=== PATIENT | male | born 1935 | race Caucasian/White ===

== ENCOUNTER 2023-10-13 22:45 | Inpatient (IN) | payer OTHER, SELFPAY ==
[2023-10-13 15:36] VITALS: BP 111/69
[2023-10-13 16:14] LABS: % Basophils 0.2 % (0-2); % Immature Granulocytes 0.6 % (0-0.5); % Lymphocytes 2.2 % (20.5-51.1); % Monocytes 5.6 % (1.7-9.3); % Neutrophils 91.4 % (42.2-75.2); Absolute Immature Granulocytes 0.1 10^3/uL (0-0.05); Absolute Lymphocytes 0.4 10^3/uL (1.2-3.4); Absolute Monocytes 1.1 10^3/uL (0.1-0.6); Absolute Neutrophils 17.7 10^3/uL (1.4-6.5); Hemoglobin 13.5 g/dL (13.0-18.0); Mean Corp Hgb Conc. 33.8 g/dL (33.0-37.0); Mean Corpuscular Hgb 32.7 pg (27.0-31.0); Mean Corpuscular Volume 96.9 fL (80.0-94.0); Mean Platelet Volume 10.3 fL (7.4-10.4); Nucleated Red Blood Cells % 0 % (-); Platelet Count 217 10^3/uL (130-400); Red Blood Cell Count 4.13 10^6/uL (4.70-6.10); Red Cell Dist. Width 14.3 % (11.5-14.5); White Blood Cell Count 19.4 10^3/uL (4.8-10.8)
[2023-10-13 16:25] LABS: ALT (SGPT) 25 U/L (0-50); AST (SGOT) 40 U/L (17-59); Albumin 4.4 g/dl (3.5-5.0); Alkaline Phosphatase 107 U/L (38-126); Blood Urea Nitrogen 25 mg/dl (9-20); Calcium 9.9 mg/dl (8.4-10.2); Carbon Dioxide 23 mmol/L (22-30); Chloride 104 mmol/L (98-107); Glucose 165 mg/dl (70-99); Lipase 40 U/L (23-300); Sodium 136 mmol/L (135-145); Total Bilirubin 1.1 mg/dl (0.2-1.3); Total Protein 6.9 g/dl (6.3-8.2); eGFR 44.78
[2023-10-13 16:26] LABS: Lactic Acid 3.9 mmol/L (0.7-2.0)
[2023-10-13 16:37] LABS: Troponin I < 0.012 ng/ml
--- NOTE | 2023-10-13 18:39 | ED.GENMED ---
History of Present Illness
General
Chief Complaint: Abdominal Pain
Time Seen by Provider: 10/13/23 18:21
Travel History
Have you had any contact with someone who has COVID-19?: No
Do you have any symptoms of coronavirus? Fever > 100 degrees, chills, cough, shortness of breath, sore throat, loss of taste or smell, muscle aches, or headache?: No
History of Present Illness
History of Present Illness:
87-year-old male with history of impaired cognition and hypertension presents to the emergency department for evaluation of right upper abdominal pain that began this morning. He has had several bouts of nausea and vomiting this afternoon. Patient
suspects that this is food poisoning related to his dinner last night. Denies any fevers chills or sweats. No history of abdominal surgeries.
Review of Systems
Review of Systems
Allergies reviewed?: Yes
All Other Systems: ROS reviewed and negative except as documented in HPI and ROS
Phy Exam
Physical Exam
Physical Exam:
GEN: Well appearing, NAD, WDWN
Eyes: PERRLA, EOMs intact, no scleral icterus
HENT: NCAT, oral mucosa moist
Lungs: CTAB, no wheezes, rales, rhonchi, normal chest wall excursion
Cardiac: RRR, no M/R/G, no peripheral edema. Radial pulses 2+ bilat
Abdomen: Soft, focal right upper quadrant tenderness, negative Rendon sign, no rigidity or peritoneal signs
Neuro: Alert and oriented to baseline, moves all extremities freely
MSK: No gross deformity or ecchymosis.
Skin: No rashes, petechiae. Normal color, no pallor or jaundice.
Psych: Calm, cooperative, proper hygiene
Course
Orders/Labs/Results
Orders:
Orders
10/13/23 15:42
Electrocardiogram (*1) Urgent
Reason for Study: Vertigo / Dizzy
EKG- Treatment ONCE
CR Chest - 2 Views Urgent
Comment:
Reason For Exam: weakness
10/13/23 15:56
Complete Blood Count/With Diff Urgent
Comprehensive Metabolic Panel Urgent
Lactic Acid Urgent
Lipase Urgent
Troponin I Urgent
10/13/23 18:38
0.9% Sodium Chloride 1000 ml [Nss] 2,000 ml IV BOLUS
US Abdomen Complete/Upper Urgent
Comment:
Reason For Exam: RUQ pain/leukocytosis
10/13/23 19:56
Piperacillin/Tazo 3.375 Gram [Zosyn] 3.375 gram in 50 ml IV NOW
10/13/23 20:08
CT Abd/Pel (IV only)-DH only Urgent
Comment:
Reason For Exam: sepsis, abd pain
10/13/23 21:56
Admit/Transfer Patient As Directed
Co-Sign Provider:
Level of Care: Inpatient admission
Assign to:: Medical/Surgical
Physician / Group: jose guadalupe
Diagnosis: cholecystitis
Reason for Hospitalization: cholecystitis
Expected length of stay greater than two midnights?: Yes
ELOS- Estimated Length of Stay in days: 2
I certify the patient meets the requirements for IP care: Yes
10/13/23 21:59
Code Status As Directed
Resuscitation Status: Full Code
10/13/23 22:02
SURGICAL CONSULT Routine
Consulting Provider: Victor M De Jesus
Was physician already notified: Yes
Abnormal Lab Results
10/13/23
15:56
WBC 19.4 H 10^3/uL
(4.8-10.8)
RBC 4.13 L 10^6/uL
(4.70-6.10)
MCV 96.9 H fL
(80.0-94.0)
MCH 32.7 H pg
(27.0-31.0)
Abs Immat Gran (auto) 0.1 H 10^3/uL
(0-0.05)
Absolute Neuts (auto) 17.7 H 10^3/uL
(1.4-6.5)
Absolute Lymphs (auto) 0.4 L 10^3/uL
(1.2-3.4)
Absolute Monos (auto) 1.1 H 10^3/uL
(0.1-0.6)
Immature Gran % 0.6 H %
(0-0.5)
Neutrophils % 91.4 H %
(42.2-75.2)
Lymphocytes % 2.2 L %
(20.5-51.1)
BUN 25 H mg/dl
(9-20)
Creatinine 1.5 H mg/dL
(0.7-1.3)
Glucose 165 H mg/dl
(70-99)
Lactic Acid 3.9 H mmol/L
(0.7-2.0)
10/13/23 15:56
10/13/23 15:56
Vital Signs
Initial and Last Documented VS:
Initial Vital Signs
Temp Pulse Resp BP Pulse Ox
98.6 F 109 18 111/69 94
10/13/23 15:36 10/13/23 15:36 10/13/23 15:36 10/13/23 15:36 10/13/23 15:36
Last Documented Vital Signs
Temp Pulse Resp BP Pulse Ox
98.6 F 82 18 134/59 97
10/13/23 15:36 10/13/23 20:25 10/13/23 20:25 10/13/23 20:25 10/13/23 20:25
MDM/Problems Addressed
MDM/Problems Addressed:
Patient found to have acute cholecystitis. Case was discussed with general surgery, the patient will be admitted on IV antibiotics to the hospitalist service for further management. He is septic with lactic acidosis and significant leukocytosis,
received 2 L normal saline and prompt IV antibiotics.
*Critical Care Note
Total Time (30-74mins, 75-104mins- exclusive of procedures): 30 minutes
comment:
Critical care time: 30 minutes
Critical care time was exclusive of: Separately billable procedures, treating other patients, and teaching time
Critical care was necessary to treat or prevent imminent or life-threatening deterioration of the following conditions: Severe sepsis
Critical care time spent personally by me on the following activities:
[x] Review of old charts
[x] Obtaining history from patient or surrogate
[x] Ordering and review of the laboratory studies
[x] Ordering and review of radiographic studies
[x] Ordering and performing treatments and interventions
[x] Patient patient's response to treatment
[x] Development of treatment plan with patient or surrogate
ED Attending Note
-
Portions of this chart may have been created with voice recognition software.� Occasional wrong word or��sound alike� substitutions may have occurred due to the inherent limitations of voice recognition software.
Discharge Plan
Departure
Patient Disposition: Admit
Date of Disposition: 10/13/23
Time of Disposition: 21:32
Presentation/result/management discussed w/ accepting MD/DO: Hospitalist
Discharge Problem:
Acute cholecystitis, Severe sepsis
Interventions
Interventions:
*Risk Screen - Suicide Last Done: 10/13/23 15:36
*General Assessment Last Done: 10/13/23 15:36
*Neglect/Abuse Screening Last Done: 10/13/23 15:36
ED- Fall Risk Assessment Last Done: 10/13/23 19:15
WM-Zmtwbt-Elalzwhael Assessment Last Done: 10/13/23 19:14
[2023-10-13] MEDS: NSS 2000 IV (19:13)
[2023-10-13] MEDS: ZOSYN 50 IV (20:17)
[2023-10-13 20:25] VITALS: BP 134/59
--- NOTE | 2023-10-13 22:03 | HPS.HSE ---
Family Physician
-
Family Physician: Chito Lee
Chief Complaint
-
abdominal pain
History of Present Illness
87-year-old male past medical history of hypertension, rosacea, gout, arthritis, hypothyroidism, cognitive impairment, presenting with right upper abdominal pain that started this morning. He had several bouts of nausea and vomiting today. He
denies fevers or chills. Denies any diarrhea.
Patient was trying to get out of bed upon my arrival and was falling to the ground and I was able to help him to the ground without head injury. He denies any headache or neck pain.
Denies smoking or alcohol use.
Medical History
Past Medical History
Past Medical History: Reports Other ( hypertension, rosacea, gout, arthritis, hypothyroidism, cognitive impairment,)
Past Surgical History: Reports None
Social History
Tobacco: Non-smoker
Alcohol: None
Drug: None
Family History
Family History: Not pertinent
Allergies / Home Medications
Allergies reflects when Allergies were last updated in [facility].
Home Medications with original date entered in [facility]
Allergy/Medication List:
Allergies
Allergy/AdvReac Type Severity Reaction Status Date / Time
No Known Allergies Allergy Unverified 10/13/23 15:36
Home Medications
acetaminophen 325 mg tablet (Tylenol) 650 mg PO Q4HPRN PRN mild pain 10/13/23
allopurinol 300 mg tablet 300 mg PO DAILY 10/13/23
cholecalciferol (vitamin D3) 25 mcg (1,000 unit) tablet (Vitamin D3) 25 mcg PO DAILY 10/13/23
hydroxychloroquine 200 mg tablet (Plaquenil) 200 mg PO BID 10/13/23
levothyroxine 50 mcg tablet (Synthroid) 50 mcg PO DAILY 10/13/23
metoprolol succinate 25 mg tablet,extended release 24 hr (Toprol XL) 12.5 mg PO DAILY 10/13/23
midodrine 5 mg tablet 5 mg PO TIDPRN PRN low bp 10/13/23
therapeutic multivitamin 1 tab PO DAILY 10/13/23
Review of Systems
-
History Source: Patient
A 12 point ROS was completed and negative except as noted: Yes
Constitutional: Reports No Symptoms
EENT: Reports No Symptoms
Respiratory: Reports No Symptoms
Cardiac: Reports No Symptoms
Abdomen/GI: Reports See HPI
: Reports No Symptoms
Musculoskeletal: Reports No Symptoms
Skin: Reports No Symptoms
Neurological: Reports No Symptoms
Endocrine: Reports No Symptoms
Hematologic/Lymphatic: Reports No Symptoms
Psych: Reports No Symptoms
Physical Exam
Vital Signs
Vital Signs
Temp Pulse Resp BP Pulse Ox
98.6 F 82 18 134/59 97
10/13/23 15:36 10/13/23 20:25 10/13/23 20:25 10/13/23 20:25 10/13/23 20:25
Physical Exam
General: Well Developed, Well Nourished and No Apparent Distress
HEENT: NormoCephalic, Moist mucous membranes and Atraumatic
Respiratory: Clear
Cardiac: S1/S2 and Regular Rhythm; No Murmur or Rub
GI: Soft, Non Distended, Normal Bowel Sounds and Tender (RUQ); No Organomegaly
Rectal: Deferred by Provider
Musculoskeletal: No Clubbing, No Cyanosis and No Edema
Skin: No Rash
Neuro: Nonfocal/grossly intact
Laboratory Results
-
10/13/23 15:56
10/13/23 15:56
Laboratory Results
Lactic Acid 3.9 mmol/L (0.7-2.0) H 10/13/23 15:56
Total Bilirubin 1.1 mg/dl (0.2-1.3) 10/13/23 15:56
AST 40 U/L (17-59) 10/13/23 15:56
ALT 25 U/L (0-50) 10/13/23 15:56
Alkaline Phosphatase 107 U/L (38-126) 10/13/23 15:56
Troponin I < 0.012 ng/ml 10/13/23 15:56
Lipase 40 U/L (23-300) 10/13/23 15:56
Data Reviewed
-
Lab Data: Labs Reviewed by me
Old Records: Reviewed
Impression/Plan
-
IMPRESSION:
PLAN:
# Acute cholecystitis
-N.p.o.
-IV fluids
-Zosyn
-Dilaudid for pain
-General surgery consulted
# Acute kidney injury
-IV fluids
Cognitive impairment
Essential hypertension
-Continue metoprolol
Rheumatoid arthritis
-Continue hydroxychloroquine
Gout
-Continue allopurinol
Hypothyroidism
-Continue levothyroxine
Full code
DVT prophylaxis�SCDs
N.p.o.
[2023-10-14] VITALS (16 sets, daily range): BP systolic 123–164; BP diastolic 55–91; BMI 23.1
[2023-10-14] MEDS: NSS 1000 IV ×3 (00:57→23:01)
[2023-10-14] MEDS: ZOSYN 50 IV ×4 (02:30→20:04)
[2023-10-14 06:01] LABS: % Basophils 0.4 % (0-2); % Eosinophils 0.1 % (0-6); % Immature Granulocytes 0.5 % (0-0.5); % Lymphocytes 5.7 % (20.5-51.1); % Monocytes 9.1 % (1.7-9.3); % Neutrophils 84.2 % (42.2-75.2); Absolute Basophils 0.1 10^3/uL (0-0.2); Absolute Immature Granulocytes 0.1 10^3/uL (0-0.05); Absolute Lymphocytes 0.9 10^3/uL (1.2-3.4); Absolute Monocytes 1.4 10^3/uL (0.1-0.6); Absolute Neutrophils 12.9 10^3/uL (1.4-6.5); Hematocrit 39.7 % (39.0-52.0); Hemoglobin 13.7 g/dL (13.0-18.0); Mean Corp Hgb Conc. 34.5 g/dL (33.0-37.0); Mean Corpuscular Hgb 32.8 pg (27.0-31.0); Mean Platelet Volume 10.4 fL (7.4-10.4); Nucleated Red Blood Cells % 0 % (-); Platelet Count 165 10^3/uL (130-400); Red Blood Cell Count 4.18 10^6/uL (4.70-6.10); Red Cell Dist. Width 14.5 % (11.5-14.5); White Blood Cell Count 15.3 10^3/uL (4.8-10.8)
[2023-10-14 06:27] LABS: ALT (SGPT) 22 U/L (0-50); AST (SGOT) 43 U/L (17-59); Albumin 3.4 g/dl (3.5-5.0); Alkaline Phosphatase 88 U/L (38-126); Blood Urea Nitrogen 29 mg/dl (9-20); Calcium 9.6 mg/dl (8.4-10.2); Carbon Dioxide 24 mmol/L (22-30); Chloride 104 mmol/L (98-107); Estimated Creatinine Clearance 38 ml/min; Glucose 120 mg/dl (70-99); Potassium 4.5 mmol/L (3.5-5.1); Sodium 138 mmol/L (135-145); Total Bilirubin 1.8 mg/dl (0.2-1.3); eGFR 44.78
--- NOTE | 2023-10-14 07:58 | CON.GS ---
Consultation
-
Date/Time Consultation Requested: 10/14/23
Date/Time Consultation Performed: 10/14/23
Requesting Provider: hospitalist
Performing Provider: brigitte
Reason for Consultation: cholecystitis
Medical History
-
Chief Complaint: Fainting
History of Present Illness:
Patient is an 87-year-old male who lives independently with his who came into the emergency department yesterday as he was unable to ambulate with progressive weakness.
He has had approximately a 2-day history of right-sided abdominal pain at the ribs with recurrent nausea vomiting. No episodes like this in the past. Emergency department evaluation notable for gallbladder wall thickening, sludge and
pericholecystic fluid/edema consistent with cholecystitis on CT as well as ultrasound imaging.
Past Medical History
Past Medical History: Other (Hypertension, rosacea, gout, arthritis, hypothyroidism, cognitive impairment)
Past Surgical History: Orthopedic (Knee scope)
Social History
Tobacco: Non-Smoker
Alcohol: None
Drug: None
Personal:
Living: With Family
Employment: Retired
Family History
Family History: Unable to Obtain
Allergies / Home Medications
Allergy/AdvReac Type Severity Reaction Status Date / Time
No Known Allergies Allergy Unverified 10/13/23 15:36
Medication Instructions Recorded Confirmed Type
acetaminophen 325 mg tablet 650 mg PO Q4HPRN PRN mild pain 10/13/23 10/13/23 History
(Tylenol)
allopurinol 300 mg tablet 300 mg PO DAILY 10/13/23 10/13/23 History
cholecalciferol (vitamin D3) 25 25 mcg PO DAILY 10/13/23 10/13/23 History
mcg (1,000 unit) tablet (Vitamin
D3)
hydroxychloroquine 200 mg tablet 200 mg PO BID 10/13/23 10/13/23 History
(Plaquenil)
levothyroxine 50 mcg tablet 50 mcg PO DAILY 10/13/23 10/13/23 History
(Synthroid)
metoprolol succinate 25 mg 12.5 mg PO DAILY 10/13/23 10/13/23 History
tablet,extended release 24 hr
(Toprol XL)
midodrine 5 mg tablet 5 mg PO TIDPRN PRN low bp 10/13/23 10/13/23 History
therapeutic multivitamin 1 tab PO DAILY 10/13/23 10/13/23 History
Review of Systems
-
Unable to obtain full review of systems at this time due to: Dementia
History Source: Patient
A 10 point review of systems was completed, and was negative except as per HPI.
Physical Exam
Vital Signs
Temp Pulse Resp BP Pulse Ox
98.8 F 87 18 154/67 97
10/14/23 00:02 10/14/23 00:02 10/14/23 00:02 10/14/23 00:02 10/14/23 00:02
10/13/23 10/14/23 10/15/23
06:59 06:59 06:59
Actual Weight 77.111 kg
Body Mass Index (BMI) 23.1
Lab Results
10/14/23 05:40
10/14/23 05:40
WBC 15.3 10^3/uL (4.8-10.8) H 10/14/23 05:40
Hgb 13.7 g/dL (13.0-18.0) 10/14/23 05:40
Hct 39.7 % (39.0-52.0) 10/14/23 05:40
Plt Count 165 10^3/uL (130-400) D 10/14/23 05:40
Abs Immat Gran (auto) 0.1 10^3/uL (0-0.05) H 10/14/23 05:40
Neutrophils % 84.2 % (42.2-75.2) H 10/14/23 05:40
Data Reviewed
-
CT Scan: Image Personally Visualized and interpreted, Report Reviewed by me, Discussed with Patient and Discussed with Family
Ultrasound: Image Personally Visualized and interpreted, Report Reviewed by me, Discussed with Patient and Discussed with Family
Labs: Labs Reviewed by me, Discussed with Patient and Discussed with Family
Assessment / Plan
-
Assessment: 87-year-old male with probable acute calculus cholecystitis secondary leukocytosis, intractable right upper quadrant abdominal pain and slightly elevated bilirubin. Remaining LFTs normal.
Ultrasound confirmed wall thickening and pericholecystic edema. Gallbladder sludge. CT imaging also with gallbladder distention and pericholecystic inflammatory changes. No additional acute intra-abdominal findings on CT imaging.
Reviewed with patient and also spoke with his daughter at length via phone call. We discussed treatment options which could include attempted nonoperative management with antibiotic therapy and obtaining a HIDA scan to evaluate for cystic duct
patency. Alternatively given persistent tenderness in the right upper quadrant, leukocytosis and ongoing signs of cholecystitis I advised that I would lean towards cholecystectomy. Even in the setting of the patient's advanced age he does live
independently with his , has no significant prior diagnosed cardiac history other than hypertension and his daughter is unaware of any history of congestive heart failure, prior AK, valvular heart disease.
Laparoscopic cholecystectomy with possible cholangiogram was reviewed in detail with the patient's daughter and reviewed with the patient.
Plan: Continue current medical treatment. Patient and family are leaning towards cholecystectomy but would like to further discuss before definitive yes.
[2023-10-14] MEDS: THERAGRAN 1 TABLET PO (08:00)
[2023-10-14] MEDS: VITAMIN D3 (cholecalciferol) 25 MCG PO (08:00)
[2023-10-14] MEDS: ZYLOPRIM 300 MG PO (08:00)
[2023-10-14] MEDS: PLAQUENIL 200 MG PO ×2 (08:00→19:41)
[2023-10-14] MEDS: TOPROL XL 12.5 MG PO (08:04)
[2023-10-14] MEDS: SYNTHROID 50 MCG PO (08:04)
--- NOTE | 2023-10-14 10:02 | W.PN.SURGUPD ---
Surgical Update
Surgical Update
Patient's daughter and are now present. Discussed with them and patient in preoperative holding area options for treatment of cholecystitis including nonoperative, percutaneous cholecystostomy tube drainage and cholecystectomy. We reviewed
risks, benefits of various approaches and everyone is in agreement to proceed with cholecystectomy.
Laparoscopic cholecystectomy was reviewed in detail including operative technique utilizing diagrams and alternative management options. The potential benefits and risks of the procedure were reviewed in detail, including but not limited to
infectious or wound healing complications, bleeding, bile leak, injury to biliary tree, iatrogenic injury to surrounding viscera. Reviewed the typical postoperative recovery.
Any of the patient's concerns or questions were fully addressed and informed consent was obtained.
Proceeding with surgery at this time
--- NOTE | 2023-10-14 10:04 | W.SUR.PREOP ---
Pre-Operative Surgical Note
-
I have examined this patient prior to the performance of the scheduled procedure.
The patient's condition is unchanged from the time of the current History and
Physical and the patient is able to undergo the scheduled procedure.
--- NOTE | 2023-10-14 11:09 | W.PN.HOSP.TC ---
Today's Communication/Plan
-
lap stacy today
Assessment / Plan
Assessment / Plan
Assessment:
Acute cholecystitis
- NPO for lap stacy
- continue IVF
- Zosyn
- GS following
- pain control, anti-emetics
Acute kidney injury vs CKD
- continue IVF
Cognitive impairment
Essential hypertension
- continue metoprolol
Rheumatoid arthritis
- continue hydroxychloroquine
Gout
- continue allopurinol
Hypothyroidism
- continue levothyroxine
DVT ppx: SCDs
Code: Full
Anticipated Discharge: > 48 hours
Subjective/Interval History
-
Date of Service: October 14, 2023
RUQ pain and nausea, found to have acute stacy
for lap stacy today
Objective Data
-
Labs:
Laboratory Results
10/14/23
05:40
WBC 15.3 H
Hgb 13.7
Hct 39.7
Plt Count 165 D
Sodium 138
Potassium 4.5
Chloride 104
Carbon Dioxide 24
BUN 29 H
Creatinine 1.5 H
Glucose 120 H
Calcium 9.6
Total Bilirubin 1.8 H
AST 43
ALT 22
Alkaline Phosphatase 88
Vital Signs:
Vital Signs
Temp Pulse Resp BP Pulse Ox
98.2 F 83 17 164/71 96
10/14/23 08:24 10/14/23 08:24 10/14/23 08:24 10/14/23 08:24 10/14/23 08:24
Physical Exam
-
General: Well Developed and Well Nourished
HEENT: Normocephalic and Atraumatic
Respiratory: Clear to Auscultation
Cardiac: Regular Rhythm and S1/S2
GI: Tender (RUQ)
Hematologic / Lymphatic: Lymphadenopathy
Psych: Calm
Data Reviewed
-
Total Time Spent with Patient (in minutes): 45
Labs: Labs Reviewed by me
--- NOTE | 2023-10-14 11:13 | W.IMMPOSTOP ---
Addendum entered and electronically signed by Victor M De Jesus MD 10/14/23 11:23:
#[id number]
Original Note:
Surgical Immed Post Op Note
-
Primary Surgeon: Liza
Assisting Surgeon: None
Pre-op Diagnosis: Acute calculus cholecystitis
Post-op Diagnosis: Gangrenous acute calculus cholecystitis
Procedure Performed: Laparoscopic cholecystectomy
Anesthesia Type: GETA +0.25% Marcaine
Specimen / Cultures: Gallbladder
Estimated Blood Loss: 8 mL
Complications: None immediate
Operative Findings: Tensely distended gallbladder with patchy gangrenous wall changes. No free perforation. Cystic duct identified and controlled with clips as well as cystic artery. Gallbladder removed off liver bed intact.
Plan: Routine postop care continuing IV antibiotics. Clear liquids and advance diet as tolerated.
Family updated postoperatively in waiting area
[2023-10-15] MEDS: ZOSYN 50 IV ×2 (02:24→09:02)
[2023-10-15 03:30] VITALS: BP 143/75
[2023-10-15] MEDS: SYNTHROID 50 MCG PO (06:07)
[2023-10-15 06:30] LABS: % Basophils 0.1 % (0-2); % Immature Granulocytes 0.3 % (0-0.5); % Lymphocytes 2.9 % (20.5-51.1); % Monocytes 4.6 % (1.7-9.3); % Neutrophils 92.1 % (42.2-75.2); Absolute Immature Granulocytes 0.1 10^3/uL (0-0.05); Absolute Lymphocytes 0.5 10^3/uL (1.2-3.4); Absolute Monocytes 0.7 10^3/uL (0.1-0.6); Absolute Neutrophils 14.2 10^3/uL (1.4-6.5); Hematocrit 32.8 % (39.0-52.0); Hemoglobin 10.9 g/dL (13.0-18.0); Mean Corp Hgb Conc. 33.2 g/dL (33.0-37.0); Mean Corpuscular Hgb 32.9 pg (27.0-31.0); Mean Corpuscular Volume 99.1 fL (80.0-94.0); Mean Platelet Volume 10.9 fL (7.4-10.4); Nucleated Red Blood Cells % 0 % (-); Platelet Count 165 10^3/uL (130-400); Red Blood Cell Count 3.31 10^6/uL (4.70-6.10); Red Cell Dist. Width 14.2 % (11.5-14.5); White Blood Cell Count 15.4 10^3/uL (4.8-10.8)
[2023-10-15 07:08] LABS: ALT (SGPT) 38 U/L (0-50); AST (SGOT) 66 U/L (17-59); Albumin 2.7 g/dl (3.5-5.0); Alkaline Phosphatase 79 U/L (38-126); Blood Urea Nitrogen 27 mg/dl (9-20); Carbon Dioxide 20 mmol/L (22-30); Chloride 109 mmol/L (98-107); Estimated Creatinine Clearance 41 ml/min; Glucose 113 mg/dl (70-99); Potassium 3.9 mmol/L (3.5-5.1); Sodium 135 mmol/L (135-145); Total Bilirubin 1.1 mg/dl (0.2-1.3); eGFR 48.65
--- NOTE | 2023-10-15 07:46 | W.PN.GS2 ---
Today's Communication / Plan
-
Advance diet
Dispo planning.
Assessment / Plan
-
87-year-old male postoperative day 1 laparoscopic cholecystectomy for acute cholecystitis. LFTs improved, patient is doing well, expected postoperative course.
Okay to advance to a low-fat diet.
Pain control.
Antibiotics x 4 days (okay to switch to p.o.)
Dispo Per primary, patient to follow-up with Dr. De Jesus in 2 to 3 weeks.
Discharge instructions updated.
Time Spent
Total Time Spent with Patient (in minutes): 10
Subjective Data
-
Date of Service: October 15, 2023
Interval Events:
No acute events overnight. Slept well. Pain Controlled. Denies Nausea/Vomiting, -bowel function. Tolerating full liquid diet.
Objective Data
-
Intake and Output
10/14/23 10/15/23 10/16/23
06:59 06:59 06:59
Intake Total 2330 / 2330
Balance 2330 / 2330
Intake:
Oral fluids 805 / 805
IV fluids (Total) 1425 / 1425
Nss 1,000 ml @ 100 mls/hr IV . 125 / 125
Q10H [facility] Rx#:[id number]
norm 100 / 100
IV piggybacks 100 / 100
Other:
Number of approximated SMALL 1
amounts of urine
How many times incontinent 1
MODERATE amount urine
How many times incontinent 1
SATURATED amount urine
Vital Signs
Temp Pulse Resp BP Pulse Ox
97.8 F 61 16 143/75 98
10/15/23 03:30 10/15/23 03:30 10/15/23 03:30 10/15/23 03:30 10/15/23 03:30
Lab Results
10/15/23 05:46
10/15/23 05:46
Calcium 8.0 mg/dl (8.4-10.2) L D 10/15/23 05:46
Total Bilirubin 1.1 mg/dl (0.2-1.3) 10/15/23 05:46
AST 66 U/L (17-59) H 10/15/23 05:46
ALT 38 U/L (0-50) 10/15/23 05:46
Alkaline Phosphatase 79 U/L (38-126) 10/15/23 05:46
Total Protein 5.0 g/dl (6.3-8.2) L 10/15/23 05:46
Albumin 2.7 g/dl (3.5-5.0) L 10/15/23 05:46
Physical Exam
-
GENERAL/NEURO: Awake, Alert, no distress
CHEST: Unlabored breathing on RA
ABDOMEN: Soft, Non-Tender, Non-Distended, incisions clean dry and intact.
[2023-10-15 08:54] VITALS: BP 135/62
[2023-10-15] MEDS: NSS 1000 IV (09:02)
[2023-10-15] MEDS: PLAQUENIL 200 MG PO (09:03)
[2023-10-15] MEDS: ZYLOPRIM 300 MG PO (09:03)
[2023-10-15] MEDS: VITAMIN D3 (cholecalciferol) 25 MCG PO (09:03)
[2023-10-15] MEDS: THERAGRAN 1 TABLET PO (09:03)
[2023-10-15] MEDS: TOPROL XL 12.5 MG PO (09:03)
--- NOTE | 2023-10-15 10:52 | W.PN.HOSP.TC ---
Addendum entered and electronically signed by Charles Schulz MD 10/20/23 18:27:
sepsis POA
Original Note:
Today's Communication/Plan
-
dc home/VN later this evening
Assessment / Plan
Assessment / Plan
Assessment:
Leukocytosis
Acute cholecystitis
- s/p lap stacy 10/14
- Tylenol for pain
- LFD per GS
- switch to Augmentin x 4 days at discharge
- f/u PCP in 1 week with repeat labs, GS in 2 weeks
Acute kidney injury vs CKD
- suspect more likely CKD given prior labs only from 2007
- cr improved with IVF
- repeat labs in 1 week
Cognitive impairment
Essential hypertension
- continue metoprolol
Rheumatoid arthritis
- continue hydroxychloroquine
Gout
- continue allopurinol
Hypothyroidism
- continue levothyroxine
DVT ppx: SCDs
Code: Full
More than 30 minutes spent in discharge including
Final examination of the patient
Summarizing hospital stay
Instructions for continuing care to all relevant caregivers
Preparation of discharge records, prescriptions, and referral forms
Total time spent (in minutes): 47
Anticipated Discharge: Today
Subjective/Interval History
-
Date of Service: October 15, 2023
tolerating diet, no n/v
pain well controlled with Tylenol
incontinence at baseline from chronic BPH
Objective Data
-
Labs:
Laboratory Results
10/15/23
05:46
WBC 15.4 H
Hgb 10.9 L D
Hct 32.8 L
Plt Count 165
Sodium 135
Potassium 3.9
Chloride 109 H
Carbon Dioxide 20 L
BUN 27 H
Creatinine 1.4 H
Glucose 113 H
Calcium 8.0 L D
Total Bilirubin 1.1
AST 66 H
ALT 38
Alkaline Phosphatase 79
Vital Signs:
Vital Signs
Temp Pulse Resp BP Pulse Ox
98.2 F 69 18 135/62 95
10/15/23 08:54 10/15/23 08:54 10/15/23 08:54 10/15/23 09:03 10/15/23 08:54
I&O
10/14/23 10/15/23 10/16/23
06:59 06:59 06:59
Intake Total 2330 / 2330
Balance 2330 / 2330
Physical Exam
-
General: No Apparent Distress
HEENT: Normocephalic
Respiratory: Negative Wheezes or Rales
Cardiac: Regular Rhythm and S1/S2
GI: Soft and Nontender
Musculoskeletal: No Edema
Neuro: AO x 3
Hematologic / Lymphatic: No Lymphadenopathy
Psych: Calm
Data Reviewed
-
Total Time Spent with Patient (in minutes): 47
Labs: Labs Reviewed by me
[2023-10-15 11:00] VITALS: BP 124/59
--- NOTE | 2023-10-15 11:19 | W.DS.TRANS ---
DC Summary - Hearing Impaired [employer]iner[employer]
-
Discharge Instructions:
Discharge Diagnosis/Procedures Acute cholecystitis. Laparoscopic
cholecystectomy.
Diet Low Fat
Activity No strenuous activity,As tolerated
Driving Restrictions As prior to admission
Bathing Restrictions OK to Shower
Blood Work repeat blood work in 1 week - slip given
Other Services VN
Instructions:
Stand-Alone Forms:
Changes to Home Medications: No
Discharge Medications:
DC Medications w/original date entered in [facility]
acetaminophen 325 mg tablet (Tylenol) 650 mg PO Q4HPRN PRN mild pain 10/13/23
allopurinol 300 mg tablet 300 mg PO DAILY Gout 10/13/23
cholecalciferol (vitamin D3) 25 mcg (1,000 unit) tablet (Vitamin D3) 25 mcg PO DAILY Supplement 10/13/23
hydroxychloroquine 200 mg tablet (Plaquenil) 200 mg PO BID Rheumatoid arthritis 10/13/23
levothyroxine 50 mcg tablet (Synthroid) 50 mcg PO DAILY AT 0700 Thyroid 10/13/23
metoprolol succinate 25 mg tablet,extended release 24 hr (Toprol XL) 12.5 mg PO DAILY Blood Pressure 10/13/23
midodrine 5 mg tablet 5 mg PO TIDPRN PRN low bp 10/13/23
therapeutic multivitamin 1 tab PO DAILY Supplement 10/13/23
amoxicillin 875 mg-potassium clavulanate 125 mg tablet 1 tab PO Q12H #10 tabs 10/15/23
Home Medication Changes
Pending Results: No
Total time spent discharging patient (in min): 45
[2023-10-15 12:21] VITALS: BP 134/61; PULSE 70; O2SAT 97
--- NOTE | 2023-10-15 12:39 | VNURNOTE ---
Home Health Liaison met with patient and Anne at 1230 to discuss [facility] nurse/therapy, visits, schedule and homebound status. Patient is agreeable and understands that visits at home will be 2-3 x per week to assess and teach medical management.
[facility] brochure provided with contact information. Patient is aware that [facility] will contact them for start of care in 1-2 days after discharge from .
[facility] referral completed in [facility].
--- NOTE | 2023-10-15 13:47 | CM ---
met with patieint who lives with his in house with ramp infront of house,he amb with a cane,is indepoendent with bathing and groomng,he has a pcp but could not remember his name.he uses [facility] in [place] for his meds.patient is requesting a vn is
carina kumar. referral sent to [facility]. signed medicare letter.she will transport patient home.
[2023-10-15] MEDS: ZOSYN IV ×2 (14:32→14:36)
[2023-10-15 15:56] VITALS: BP 141/72
--- NOTE | 2023-10-20 13:26 | PN.CDI ---
CDI
- -
CDI:
Physician Documentation Request
Admit Date: 10/13/23 22:45
Dear Doctor Zeus,
Patient admitted with gangrenous acute calculus cholecystitis.
ED Note, 'Discharge Problem: Acute cholecystitis, Severe sepsis.'
On admission, WBC 19.4 and HR >90.
10/13 Lactic acidosis 3.9
Please update the status of documented severe sepsis documented in the ED note:
Severe sepsis, POA
Gangrenous acute calculus cholecystitis only
Other
Sepsis
- Systemic manifestations of infection, with 2 or more SIRS criteria which include:
- Fever >100.4 degrees F or hypothermia < 96.8 degrees F
- Leukocytosis - WBC > 12,000 or leukopenia - WBC < 4,000 or > 10% bands
- Tachycardia > 90 beats per minute
- Tachypnea - RR > 20 breaths per minute or PaCO2 , 32mmHg
Source: Merck Manual 2013
- Indicate the known or suspected organism
- Indicate the known or suspected underlying infection, such as cholecystitis
Severe Sepsis
- Sepsis with associated acute organ dysfunction, such as renal or respiratory failure
- Documentation should indicate the association between the sepsis and the organ dysfunction
Localized Infection Only, Without Systemic Illness
- indicate the site/source, such cholecystitis
Other
Unable to Determine
Use of terms such as suspected, likely, concern for, or probable (associated with a specific diagnosis that is being evaluated, monitored, or treated as if it exists) are acceptable and can be coded in the inpatient setting, when documented at the
time of discharge.
Thank you,
Rhonda DONIS,RN,CCDS
CDI Specialist
Available via [employer] text
Please use your independent medical judgment in providing your response.
== END 2023-10-15 18:08 | disposition home health service (06) | DRG 854 ==
LOC: 2 SOUTH 22:45
PROVIDERS: Emergency Medicine; ADMITTING PHYSICIAN Hospitalist; ATTENDING PHYSICIAN Internal Medicine; CONSULT PHYSICIAN Surgery; EMERGENCY PHYSICIAN Emergency Medicine; FAMILY PHYSICIAN Internal Medicine
PROC: 0FT44ZZ Resection of Gallbladder, Percutaneous Endoscopic Approach (ICD-10-PCS; 2023-10-14)
DX: A41.9 Sepsis, unspecified organism (principal); K80.00 Calculus of gallbladder with acute cholecystitis without obstruction; N17.9 Acute kidney failure, unspecified; K82.A1 Gangrene of gallbladder in cholecystitis; K82.8 Other specified diseases of gallbladder; N18.9 Chronic kidney disease, unspecified; I12.9 Hypertensive chronic kidney disease with stage 1 through stage 4 chronic kidney disease, or unspecified chronic kidney disease; M10.9 Gout, unspecified; M06.9 Rheumatoid arthritis, unspecified; L71.9 Rosacea, unspecified; M19.90 Unspecified osteoarthritis, unspecified site; K66.0 Peritoneal adhesions (postprocedural) (postinfection); E03.9 Hypothyroidism, unspecified; R41.89 Other symptoms and signs involving cognitive functions and awareness; Z79.890 Hormone replacement therapy
CPT/HCPCS: 88304; 71046; 74177; 76700; 80053; 83605; 83690; 84484; 85025; 93005; 96374; 97162; 97166; 99291; Q9967

== ENCOUNTER 2023-10-18 13:16 | Observation (INO) | payer OTHER, SELFPAY ==
[2023-10-18] VITALS (10 sets, daily range): BP systolic 108–168; BP diastolic 45–75; PULSE 81; BMI 25.0; BMI 22.6
--- NOTE | 2023-10-18 09:00 | EDRN ---
Pt presents in ER via EMS from home, Per EMS patient noted to have RLE weakness. Pt taken to CT with Dr. Goldman and Dr. Rosenthal.
[2023-10-18 09:15] LABS: Glucose - Point of Care 84 mg/dl (70-99)
[2023-10-18 09:37] LABS: % Basophils 0.2 % (0-2); % Eosinophils 5.9 % (0-6); % Immature Granulocytes 1.1 % (0-0.5); % Monocytes 6.8 % (1.7-9.3); Absolute Eosinophils 0.8 10^3/uL (0-0.7); Absolute Immature Granulocytes 0.1 10^3/uL (0-0.05); Absolute Lymphocytes 0.5 10^3/uL (1.2-3.4); Absolute Monocytes 0.9 10^3/uL (0.1-0.6); Absolute Neutrophils 10.4 10^3/uL (1.4-6.5); Hematocrit 39.4 % (39.0-52.0); Hemoglobin 13.2 g/dL (13.0-18.0); Mean Corp Hgb Conc. 33.5 g/dL (33.0-37.0); Mean Corpuscular Hgb 32.6 pg (27.0-31.0); Mean Corpuscular Volume 97.3 fL (80.0-94.0); Mean Platelet Volume 10.1 fL (7.4-10.4); Nucleated Red Blood Cells % 0 % (-); Platelet Count 189 10^3/uL (130-400); Red Blood Cell Count 4.05 10^6/uL (4.70-6.10); Red Cell Dist. Width 14.2 % (11.5-14.5); White Blood Cell Count 12.6 10^3/uL (4.8-10.8)
[2023-10-18 09:53] LABS: Blood Urea Nitrogen 22 mg/dl (9-20); Calcium 8.7 mg/dl (8.4-10.2); Carbon Dioxide 25 mmol/L (22-30); Chloride 107 mmol/L (98-107); Estimated Creatinine Clearance 41 ml/min; Glucose 104 mg/dl (70-99); Potassium 4.3 mmol/L (3.5-5.1); Sodium 136 mmol/L (135-145); eGFR 48.65
[2023-10-18 10:01] LABS: INR 1.13; PT 14.3 Sec (11.4-14.6)
[2023-10-18 10:02] LABS: APTT 33.1 Sec (23.4-35.0)
--- NOTE | 2023-10-18 10:30 | ED.CVA ---
History of Present Illness
General
Chief Complaint: CVA/TIA Symptoms
Source: patient, family and ambulance crew
Exam Limitations: none
Time Seen by Provider: 10/18/23 09:02
Onset of Stroke Symptoms
Onset of symptoms known: No
Time pt last seen normal is known: Yes
Date last time pt seen normal: 10/17/23
Travel History
Have you had any contact with someone who has COVID-19?: No
Do you have any symptoms of coronavirus? Fever > 100 degrees, chills, cough, shortness of breath, sore throat, loss of taste or smell, muscle aches, or headache?: No
History of Present Illness
History of Present Illness:
87-year-old male apparently woke this morning with some increased weakness. Gait was shuffled. Patient states weakness may have started yesterday. Denied other acute symptoms. There was some question of a left facial droop and garbled speech and
right-sided weakness. Prehospital stroke alert was called. Patient had a recent cholecystectomy.
Past History
Past History
ED Past Medical History: HTN and Other (BPH)
ED Past Surgical History: Cholecystectomy and Orthopedic
Social History
Tobacco: Non-smoker
Personal:
Living: with family
Review of Systems
Review of Systems
All Other Systems: Not applicable
Constitutional: Denies fever
Respiratory: Reports no symptoms
Cardiac: Reports no symptoms
ABD/GI: Reports no symptoms
Phy Exam
Physical Exam
Physical Exam:
GENERAL: Alert and oriented in no apparent distress
EYE: Orbits normal.
NECK: Supple, no significant adenopathy.
ENT: Pharynx without erythema
CARDIAC: Regular rate and rhythm without any obvious murmurs.
LUNGS: Clear breath sounds,normal
ABDOMEN: Soft, without focal tenderness or distention
NEUROLOGICAL: Alert and oriented x 2. Off on the year, slight left eyelid droop. Otherwise extraocular muscles intact. Cranial nerves II through XII intact. No arm drift. Leg strength normal. Confrontation normal.
SKIN: Warm and dry, blanching macular rash on the abdominal wall
MUSCULOSKELETAL: No edema,no deformity.Good color
PSYCH: Normal and appropriate interaction.
Scores
NIH Stroke Score
Level of Consciousness: 0 - Alert
LOC Questions: 1-Answers one correctly
LOC Commands: 0-Performs both correctly
Best Horizontal Gaze: 0-Normal
Visual Solo: 0=Normal, no visual loss
Facial Palsy: 0=Normal, symmetrical
Motor - Right Arm: 0=No drift 10 seconds
Motor - Left Arm: 0=No drift 10 seconds
Motor - Right Le-No drift 5 seconds
Motor - Left Le-No drift 5 seconds
Limb Ataxia: 0-Absent
Sensation: 0-Normal
Best Language: 0-No aphasia
Dysarthria: 0-Normal
Extinction and Inattention: 0-No abnormality
Total Score:: 1
Course
Orders/Labs/Results
Orders:
Orders
10/18/23 09:04
Electrocardiogram (*1) Stat
Reason for Study: Other
Other Reason for Exam: neuro symptoms
CT Head W/o Cont STROKE ALERT Urgent
Comment:
Reason For Exam: Possible CVA. Questionable left-sided weakness
Cardiac Monitoring- Treatment ONCE
EKG- Treatment ONCE
Pulse Ox/cont/shift [RESP] Stat
Quantity: 1
10/18/23 09:18
Basic Metabolic Panel Urgent
Complete Blood Count/With Diff Urgent
PTT Urgent
Prothrombin Time Urgent
10/18/23 10:02
Aspirin Chewable [Low Strength Aspirin] 324 mg .ROUTE .STK-MED ONE
Nitroglycerin Sublingual [Nitrostat (Sublingual)] 0.4 mg .ROUTE .STK-MED ONE
Abnormal Lab Results
10/18/23
09:18
WBC 12.6 H 10^3/uL
(4.8-10.8)
RBC 4.05 L 10^6/uL
(4.70-6.10)
MCV 97.3 H fL
(80.0-94.0)
MCH 32.6 H pg
(27.0-31.0)
Abs Immat Gran (auto) 0.1 H 10^3/uL
(0-0.05)
Absolute Neuts (auto) 10.4 H 10^3/uL
(1.4-6.5)
Absolute Lymphs (auto) 0.5 L 10^3/uL
(1.2-3.4)
Absolute Monos (auto) 0.9 H 10^3/uL
(0.1-0.6)
Absolute Eos (auto) 0.8 H 10^3/uL
(0-0.7)
Immature Gran % 1.1 H %
(0-0.5)
Neutrophils % 82.0 H %
(42.2-75.2)
Lymphocytes % 4.0 L %
(20.5-51.1)
BUN 22 H mg/dl
(9-20)
Creatinine 1.4 H mg/dL
(0.7-1.3)
Glucose 104 H mg/dl
(70-99)
10/18/23 09:18
10/18/23 09:18
Vital Signs
Initial and Last Documented VS:
Initial Vital Signs
Pulse Resp BP
86 15 150/63
10/18/23 09:13 10/18/23 09:13 10/18/23 09:13
Last Documented Vital Signs
Temp Pulse Resp BP Pulse Ox
98.1 F 80 19 141/61 98
10/18/23 09:14 10/18/23 10:00 10/18/23 10:00 10/18/23 10:00 10/18/23 10:00
*Radiology
Radiology exam reviewed: radiology read reviewed (No acute findings)
*Pulse Oximetry
Patient hypoxic: no
*EKG
Interpreted by ED Provider?: Yes
Interpretation: abnormal
Comparison EKG: changes noted
Heart Rate: 84
Rate: normal
Rhythm: sinus
[place]: normal axis
Interval: normal interval
QRS Pattern: right bundle branch block
Ischemia: non-specific ST changes
*Skin Lifter Bacon Interpretation
Rate: normal
Interpretation: normal
Heart Rate: 85
Rhythm: sinus
*Critical Care Note
Total Time (30-74mins, 75-104mins- exclusive of procedures): 40
Update Note
Update Note:
Patient was seen initially upon ambulance arrival. Has remained medically stable. Discussed with neurology and with hospitalist. Family updated. If this was a CVA it was minor. No indication for thrombolytics.
ED Attending Note
-
Portions of this chart may have been created with voice recognition software.� Occasional wrong word or��sound alike� substitutions may have occurred due to the inherent limitations of voice recognition software.
Discharge Plan
Departure
Prescriptions:
No Action
midodrine 5 mg Tablet
5 mg PO TIDPRN PRN (Reason: low bp)
levothyroxine [Synthroid] 50 mcg Tablet
50 mcg PO DAILY
allopurinol 300 mg Tablet
300 mg PO DAILY
metoprolol succinate [Toprol XL] 25 mg Tablet Extended Release 24 Hr
12.5 mg PO DAILY
hydroxychloroquine [Plaquenil] 200 mg Tablet
200 mg PO BID
cholecalciferol (vitamin D3) [Vitamin D3] 25 mcg (1,000 unit) Tablet
25 mcg PO NOON
amoxicillin-pot clavulanate 875-125 mg tablet
1 tab PO Q12H Qty: 10 0RF
Patient Comments:
10/18/2023, pt. filled this med. on 10/15/2023 and is instructed to take one tablet Q12H for 5 days. Pt. had first dose on Wednesday night (10/15/2023) and has taken 5 tablets since then; per pt. family, last dose should be Wednesday morning
(10/20/2023).
acetaminophen [Tylenol Extra Strength] 500 mg Tablet
1,000 mg PO Q4H PRN (Reason: mild pain)
Centrum Silver Tablet
1 tab PO NOON
Referrals:
Chito Lee MD [Family Provider] -
Interventions
Interventions:
*Risk Screen - Suicide Last Done: 10/18/23 09:31
*General Assessment Last Done: 10/18/23 09:31
*Neglect/Abuse Screening Last Done: 10/18/23 09:31
*ED COVID-19 Vaccine History Last Done: 10/18/23 10:16
ED- Pulmonary Assessment Last Done: 10/18/23 09:31
ED- Neurological Assessment Last Done: 10/18/23 09:31
ED- Cardiac Assessment Last Done: 10/18/23 09:31
ED Swallowing Screen Last Done: 10/18/23 10:16
--- NOTE | 2023-10-18 11:42 | CON.NEURO4 ---
Consultation - Neurology 4
-
CONSULTING PHYSICIAN: Amor Sheldon
REFERRING PHYSICIAN: ER
DICTATED BY: Amor Sheldon
DATE/TIME OF REQUEST: 10/18/22
DATE/TIME OF CONSULTATION: 10/18/22
Reason for Consultation: Stroke alert, fall, lower extremity weakness bilaterally
History of Present Illness:
Patient is an 87-year-old male with a past medical history of memory impairment, recent cholecystectomy, hypertension, gout, hypothyroidism presenting the hospital with fall at home, fluctuating weakness of both legs, mild confusion and left ptosis.
Patient had had fall before presenting to hospital which eventually led to cholecystectomy. He had another fall at home today where he was accompanied by his .
Patient has been using walker for about the past 12 to 15 months. His daughter corroborates a history of memory difficulties for at least the past 5 years, reports primary care doctor had began to notice this and brought attention to a possible
memory problem. There has been some urinary retention recently, also some urinary incontinence.
Patient has no history of stroke. His daughter feels like his brain and speech is a little bit foggy and that the ptosis on the left eye seems new.
Patient at this time offers no complaints.
Rash has been noted on the abdomen.
Past Medical History: Hypertension, hypothyroidism, cognitive impairment, arthritis
Surgical History: Cholecystectomy
Family History: Non-contributory
Social History: Patient is , retired lives with his , no tobacco no significant alcohol
Allergies: No known drug allergies
Review of Symptoms:
Patient denies any fever, headache, chest pain, shortness of breath, GI or symptoms.
Physical Exam:
Elderly man no acute distress no signs of head or neck trauma oropharynx is clear nonraised erythemic rash on the abdomen without blistering purulence or skin breakdown, heart rate regular breathing unlabored abdomen soft nontender no lower
extremity edema is seen
Neurologic Examination:
Patient is awake and alert, he is not oriented to the year but knows the current president and is able to recall President Trrubi with some hints, there is no evidence of aphasia, obeys commands consistently. There is no aphasia or dysarthria. On
cranial nerve assessment, left eye mild ptosis noted, pupils are 3 mm bilateral, round and reactive to light and accommodation. Visual solo are full. Extraocular movements are intact. Facial sensations are intact and bilaterally symmetrical, there
is no facial asymmetry. Hearing is intact bilaterally to normal conversation volume. Tongue palate and uvula are midline. Sternocleidomastoid strengths are full bilaterally. Motor strengths are 5/5 bilateral upper and lower extremities on medical
research [employer] scale. There is no drift or involuntary movement noted. Deep tendon reflexes are 2+ bilateral upper and lower extremities and Babinski is absent bilaterally. Sensations of pain, touch, temperature and vibration are intact and
bilaterally symmetrical. There was no extinction noted on double simultaneous stimulation. Coordination is intact by finger to nose bilaterally.
Neuro Imaging:
CT head noncontrast with no acute abnormality there are dilated ventricle that may represent normal pressure hydrocephalus and the appropriate clinical context, no masses no hemorrhage
Not a candidate for tPA with no disabling deficits, and unlikely an acute stroke in addition to recent major surgery. No signs indiciative of LVO would not be IAT candidate.
Impressions
1. Suspect mechanical fall due to chronic gait abnormality
2. Ptosis in the left eye felt more likely to be age-related
3. History of cognitive impairment, amatory difficulties and urinary issues along with CT head noncontrast finding does bring the possibility for normal pressure hydrocephalus. If this is present the patient does appear to have at least some
degree of cognitive impairment and longstanding gait issues, would need outpatient assessment confirming the diagnosis and discussion of whether or not neurosurgical treatment with shunt would be desired or beneficial.
4. Recent cholecystectomy
Recommendations:
1. Give aspirin 325 mg once now, continue 81 mg daily thereafter
2. Check MRI brain without contrast, if negative for acute stroke then can stop aspirin
3. Neurologic checks and NIH scales
4. Goal normotension
5. Outpatient evaluation for NPH, no indication for lumbar puncture as inpatient
6. Consideration for switching antibiotic therapies given observed rash
Will follow as needed call with questions and concerns
Discussed patient care with: ER, patient and his family
NIH Stroke Score
Subsequent NIH Scale
Date of Subsequent NIH Scale: 10/18/23
Time of Subsequent NIH Scale: 11:45
NIH Stroke Score
Level of Consciousness: 0 - Alert
LOC Questions: 1-Answers one correctly
LOC Commands: 0-Performs both correctly
Best Horizontal Gaze: 0-Normal
Visual Solo: 0=Normal, no visual loss
Facial Palsy: 0=Normal, symmetrical
Motor - Right Arm: 0=No drift 10 seconds
Motor - Left Arm: 0=No drift 10 seconds
Motor - Right Le-No drift 5 seconds
Motor - Left Le-No drift 5 seconds
Limb Ataxia: 0-Absent
Sensation: 0-Normal
Best Language: 0-No aphasia
Dysarthria: 0-Normal
Extinction and Inattention: 0-No abnormality
Total Score:: 1
Home Medications
-
Home Medications
allopurinol 300 mg tablet 300 mg PO DAILY Gout 10/13/23
cholecalciferol (vitamin D3) 25 mcg (1,000 unit) tablet (Vitamin D3) 25 mcg PO NOON Supplement 10/13/23
hydroxychloroquine 200 mg tablet (Plaquenil) 200 mg PO BID Rheumatoid arthritis 10/13/23
levothyroxine 50 mcg tablet (Synthroid) 50 mcg PO DAILY Thyroid 10/13/23
metoprolol succinate 25 mg tablet,extended release 24 hr (Toprol XL) 12.5 mg PO DAILY Blood Pressure 10/13/23
midodrine 5 mg tablet 5 mg PO TIDPRN PRN low bp 10/13/23
amoxicillin 875 mg-potassium clavulanate 125 mg tablet 1 tab PO Q12H #10 tabs 10/15/23
acetaminophen 500 mg tablet (Tylenol Extra Strength) 1,000 mg PO Q4H PRN mild pain 10/18/23
tgxkkfpgxgyc-svcjxnmt-esxvfh tablet 1 tab PO NOON 10/18/23
Vital Signs / Labs
-
Vital Signs and Labs:
Temp Pulse Resp BP Pulse Ox
98.1 F 83 24 141/61 98
10/18/23 09:14 10/18/23 11:01 10/18/23 11:01 10/18/23 10:00 10/18/23 10:00
10/18/23 09:18
10/18/23 09:18
10/18/23
09:18
WBC 12.6 H
RBC 4.05 L
MCV 97.3 H
MCH 32.6 H
Abs Immat Gran (auto) 0.1 H
Absolute Neuts (auto) 10.4 H
Absolute Lymphs (auto) 0.5 L
Absolute Monos (auto) 0.9 H
Absolute Eos (auto) 0.8 H
Immature Gran % 1.1 H
Neutrophils % 82.0 H
Lymphocytes % 4.0 L
BUN 22 H
Creatinine 1.4 H
Glucose 104 H
[2023-10-18] MEDS: ASPIRIN 325 MG PO (11:48)
--- NOTE | 2023-10-18 12:20 | HPS.HSE ---
Family Physician
-
Family Physician: Chito eLe
Chief Complaint
-
fall
History of Present Illness
HPI: 87-year-old male with a past medical history of memory impairment, recent cholecystectomy, hypertension, gout, hypothyroidism; p/w recurrent falls at home, fluctuating weakness of both legs, mild confusion and slurred speech.
Pt was discharged the week prior. He was admitted for acute cholecystitis from last admission s/p lap stacy. He was discharged with Augmentin.
He fell today while getting out of bed, and his noticed urinary incontinence.
Patient denies to any symptoms.
Of note, patient has been using walker for the past 12 to 15 months. He has never been formally diagnosed with dementia, although his daughters he likely has the diagnosis.
Patient has chronic urinary incontinence.
Daughter felt that his speech is more slurred compared to baseline.
Medical History
Past Medical History
Past Medical History: Reports Other (hypertension, rosacea, gout, arthritis, hypothyroidism, cognitive impairment)
Past Surgical History: Reports Cholecystectomy
Social History
Tobacco: Non-smoker
Alcohol: None
Drug: None
Living: With Family
Family History
Family History: Not pertinent
Allergies / Home Medications
Allergies reflects when Allergies were last updated in [facility].
Home Medications with original date entered in [facility]
Allergy/Medication List:
Allergies
Allergy/AdvReac Type Severity Reaction Status Date / Time
No Known Allergies Allergy Unverified 10/13/23 15:36
Home Medications
allopurinol 300 mg tablet 300 mg PO DAILY Gout 10/13/23
cholecalciferol (vitamin D3) 25 mcg (1,000 unit) tablet (Vitamin D3) 25 mcg PO NOON Supplement 10/13/23
hydroxychloroquine 200 mg tablet (Plaquenil) 200 mg PO BID Rheumatoid arthritis 10/13/23
levothyroxine 50 mcg tablet (Synthroid) 50 mcg PO DAILY Thyroid 10/13/23
metoprolol succinate 25 mg tablet,extended release 24 hr (Toprol XL) 12.5 mg PO DAILY Blood Pressure 10/13/23
midodrine 5 mg tablet 5 mg PO TIDPRN PRN low bp 10/13/23
amoxicillin 875 mg-potassium clavulanate 125 mg tablet 1 tab PO Q12H #10 tabs 10/15/23
acetaminophen 500 mg tablet (Tylenol Extra Strength) 1,000 mg PO Q4H PRN mild pain 10/18/23
shwxiahfgviv-trrwktvs-liqbtu tablet 1 tab PO NOON 10/18/23
Review of Systems
-
Musculoskeletal: Reports Other (weakness, falls)
Physical Exam
Vital Signs
Vital Signs
Temp Pulse Resp BP Pulse Ox
36.7 C 85 17 141/61 97
10/18/23 09:14 10/18/23 12:00 10/18/23 12:00 10/18/23 10:00 10/18/23 12:00
Physical Exam
General: Well Developed, Well Nourished, No Apparent Distress, Comfortable and Conversant
HEENT: NormoCephalic, Moist mucous membranes, Atraumatic, Nose Appears Normal and Ears Appear Normal
Respiratory: Clear and Non Labored Respirations; No Accessory Resp Muscle Use
Cardiac: S1/S2 and Regular Rhythm; No Murmur or Rub
GI: Soft, Non Distended and Normal Bowel Sounds
Rectal: Deferred by Provider
Musculoskeletal: No Clubbing, No Cyanosis and No Edema
Skin: Rash (anterior abdomen )
Neuro: Awake and Alert
Psych: Calm
Laboratory Results
-
10/18/23 09:18
10/18/23 09:18
Laboratory Results
PT 14.3 Sec (11.4-14.6) 10/18/23 09:18
INR 1.13 10/18/23 09:18
APTT 33.1 Sec (23.4-35.0) 10/18/23 09:18
Data Reviewed
-
Lab Data: Labs Reviewed by me
Impression/Plan
-
HPI: 87-year-old male with a past medical history of memory impairment, recent cholecystectomy, hypertension, gout, hypothyroidism; p/w recurrent falls at home, fluctuating weakness of both legs, mild confusion and slurred speech.
Pt was discharged the week prior. He was admitted for acute cholecystitis from last admission s/p lap stacy. He was discharged with Augmentin.
He fell today while getting out of bed, and his noticed urinary incontinence.
Patient denies to any symptoms.
Of note, patient has been using walker for the past 12 to 15 months. He has never been formally diagnosed with dementia, although his daughters he likely has the diagnosis.
Patient has chronic urinary incontinence.
Daughter felt that his speech is more slurred compared to baseline.
A/P:
# Recurrent mechanical fall
# Underlying cognitive impairment vs undiagnosed dementia
MRI brain
Patient is AO x 2
PT OT eval
neuro consulted
# Abdominal rash, ?related to antibiotic Augmentin?
Hold Abx for now
ID consult
Wound care consult
# Urinary incontinence
Check UA reflex Cx
# Recent acute cholecystitis s/p lap stacy 2
He was discharged with Augmentin
# CKD stage 3
# Essential hypertension
continue low dose metoprolol
# Rheumatoid arthritis
continue hydroxychloroquine
# Gout
continue allopurinol
# Hypothyroidism
continue levothyroxine
DVT ppx: SCDs
Code: Full
DW and daughters at bedside
[2023-10-18 14:51] LABS: Urine Albumin Negative (Neg - Trace); Urine Bilirubin Negative (Negative); Urine Character Clear (Clear); Urine Color Yellow; Urine Glucose Negative (Negative); Urine Ketone Trace (Negative); Urine Leukocyte Negative (Negative); Urine Nitrite Negative (Negative); Urine Occult Blood Negative (Negative); Urine Urobilinogen Negative (Neg - 1+)
--- NOTE | 2023-10-18 15:07 | CON.ID ---
Consultation
-
Date/Time Consultation Requested: 10/18/2023 1431
Date/Time Consultation Performed: 10/18/2023 1446
Requesting Provider: Dr. Castano
Performing Provider: Dr. Russ
Reason for Consultation: Skin rash
Chief Complaint / Past History
History of Present Illness
Adalberto Wen is a 87-year-old man being evaluated at the request of Dr. Castano in regards to a abdominal rash. History is obtained from chart review, along with patient interview. Additional history was obtained from the patient's daughters and
who are at the bedside. The patient initially presented to [facility] on 10/12 following the development of abdominal pain in the right upper quadrant with associated nausea and vomiting. He was diagnosed with acute cholecystitis, and
on 10/14 he underwent lap cholecystectomy with findings of a gangrenous gallbladder. He was discharged on 10/15 on Augmentin, to continue for an additional 5 days.
He presents back to the emergency room today after developing increasing weakness this a.m. Weakness progressed to the point that he could not even get out of bed, and his could not help him. According to the patient he feels that he
developed a rash on his abdomen 2 days ago.
Past History
Additional Past Medical History:
HTN
Rosacea
Gout
Arthritis
Hypothyroidism
Cognitive impairment
BPH
Past Surgical History: Cholecystectomy
Allergy History:
No Known Allergies Allergy (Unverified 10/13/23 15:36)
Medications Reviewed: Yes
Current Antibiotics:
Recent Augmentin; discontinued.
Social History
Tobacco: Non-Smoker
Alcohol: None
Drug: None
Personal:
Living: With Family
Employment: Retired
Review of Systems
Vital Signs
Temp Pulse Resp BP Pulse Ox
98.3 F 78 17 137/75 97
10/18/23 14:40 10/18/23 14:40 10/18/23 14:40 10/18/23 14:40 10/18/23 14:40
Physical Exam
Physical Exam
Constitutional: No Acute Distress, Comfortable and Non-toxic
Eyes: No Conjunctival Hemorrhage and Sclera Anicteric
Oral: No Thrush and No Ulcers
Cardiovascular: S1/S2; Negative S3/S4 or Murmur
Pulmonary: Clear; Negative Wheezes, Rales or Rhonchi
Gastrointestinal: Soft, Non Tender and Non Distended
Extremities: Negative Edema, Cyanosis or Erythema
Skin: Rash (Macular rash noted on lower abdomen.)
Neurological: Awake and Alert
Psychological: Calm
Lab / Diagnostic Study Results
10/18/23 09:18
10/18/23 09:18
Abs Immat Gran (auto) 0.1 10^3/uL (0-0.05) H 10/18/23 09:18
Absolute Neuts (auto) 10.4 10^3/uL (1.4-6.5) H 10/18/23 09:18
Absolute Lymphs (auto) 0.5 10^3/uL (1.2-3.4) L 10/18/23 09:18
Absolute Monos (auto) 0.9 10^3/uL (0.1-0.6) H 10/18/23 09:18
Absolute Basos (auto) 0.0 10^3/uL (0-0.2) 10/18/23 09:18
Immature Gran % 1.1 % (0-0.5) H 10/18/23 09:18
Neutrophils % 82.0 % (42.2-75.2) H 10/18/23 09:18
Lymphocytes % 4.0 % (20.5-51.1) L 10/18/23 09:18
Monocytes % 6.8 % (1.7-9.3) 10/18/23 09:18
Eosinophils % 5.9 % (0-6) 10/18/23 09:18
Basophils % 0.2 % (0-2) 10/18/23 09:18
PT 14.3 Sec (11.4-14.6) 10/18/23 09:18
INR 1.13 10/18/23 09:18
Assessment / Plan
Lower abdominal rash
-May be secondary to Augmentin
Leukocytosis
Generalized weakness
HTN
Rosacea
Gout
Arthritis
Hypothyroidism
Cognitive impairment
BPH
Recommendations:
Discontinue further Augmentin.
Will place on cefdinir and metronidazole to complete prior course of antibiotics.
Trend white count temperature curve.
Follow-up for rash improvement/worsening.
--- NOTE | 2023-10-18 15:12 | PTOTSP ---
Speech Therapy Initial Evaluation
Oropharyngeal function appears intact at the bedside. Cog-linguistic deficits; suspected dementia without formal diagnosis, pending MRI r/o CVA
1. Recommend Regular solids / Thin liquids
2. Aspiration precautions and meal set up assist
3. Meds oral per pt preference and RN discretion
4. 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
[2023-10-18] MEDS: FLAGYL 500 MG PO ×2 (17:07→23:36)
[2023-10-18] MEDS: OMNICEF 300 MG PO (20:34)
[2023-10-18] MEDS: PLAQUENIL 200 MG PO (20:34)
[2023-10-19] VITALS (8 sets, daily range): BP systolic 95–144; BP diastolic 53–67; PULSE 73; O2SAT 98
[2023-10-19] MEDS: SYNTHROID 50 MCG PO (06:17)
[2023-10-19 07:46] LABS: HDL Cholesterol 45 mg/dl; LDL Cholesterol, Calculated 26 mg/dl; Total Cholesterol 97 mg/dl (50-199); Triglyceride 131 mg/dl (10-149); Very Low Density Lipoprotein 26 mg/dl (0-30)
--- NOTE | 2023-10-19 07:48 | W.PN.NEURO.1 ---
Today's Communication / Plan
-
Will follow as outpatient. Patient may benefit from medication for cognitive stability.
Neuro Assessment/Plan
Assessment
HPI: 87-year-old male with recurrent falls at home, fluctuating weakness of both legs, mild confusion and slurred speech.
Pt was discharged the week prior. He was admitted for acute cholecystitis from last admission s/p lap stacy. He was discharged with Augmentin.
He fell while getting out of bed, and his noticed urinary incontinence.
Patient denied to any symptoms.�
Of note, patient has been using walker for the past 12 to 15 months. He has never been formally diagnosed with dementia, although his daughters indicate he likely has the diagnosis.
Patient has chronic urinary incontinence.
Daughter felt that his speech is more slurred compared to baseline.
Plan
# Recurrent mechanical fall
# Underlying cognitive impairment vs undiagnosed dementia
MRI brain failed to demonstrate clarity for the diagnosis of normal pressure hydrocephalus
PT OT eval
neuro consulted
# Abdominal rash, ?related to antibiotic Augmentin?
Hold Abx for now
ID consult
Wound care consult
# Urinary incontinence
Check UA reflex Cx
# Recent acute cholecystitis s/p lap stacy 10/14
He was discharged with Augmentin
# CKD stage 3
# Essential hypertension
continue low dose metoprolol
# Rheumatoid arthritis
continue hydroxychloroquine
# Gout
continue allopurinol
# Hypothyroidism
continue levothyroxine
Subjective/Objective
Subjective Data
Date of Service: October 19, 2023
Objective Data
Vital Signs
Temp Pulse Resp BP Pulse Ox
36.4 C 69 18 140/66 99
10/19/23 03:10 10/19/23 03:10 10/19/23 03:10 10/19/23 03:10 10/19/23 03:10
Lab Results
10/18/23 09:18
10/18/23 09:18
PT 14.3 Sec (11.4-14.6) 10/18/23 09:18
INR 1.13 10/18/23 09:18
APTT 33.1 Sec (23.4-35.0) 10/18/23 09:18
Sodium 136 mmol/L (135-145) 10/18/23 09:18
Potassium 4.3 mmol/L (3.5-5.1) 10/18/23 09:18
BUN 22 mg/dl (9-20) H 10/18/23 09:18
Glucose 104 mg/dl (70-99) H 10/18/23 09:18
Calcium 8.7 mg/dl (8.4-10.2) 10/18/23 09:18
LDL Cholesterol, Calc 26 mg/dl 10/19/23 06:52
Patient Allergies
No Known Allergies Allergy (Unverified 10/13/23 15:36)
Modified Claudia Score (MRS)
-
MRS Score:
Data Reviewed
-
Labs: Report Reviewed
Reviewed with: Physician
Old Records: Summarized
Past History
Past History
ED Past Medical History: HTN, Hypothyroidism, Other (Gout, mild cognitive impairment, rheumatoid arthritis, rosacea) and Other (BPH)
ED Past Surgical History: Cholecystectomy and Orthopedic
Social History
Tobacco: Non-smoker
Personal:
Living: with family
Family History
Family History: Other (reviewed and non-contributory)
Medications
-
Medications:
Generic Name Dose Route Start Last Admin
Trade Name Freq PRN Reason Stop Dose Admin
Acetaminophen 650 mg 10/18/23 14:31
Acetaminophen 650 Mg Rectal Suppository RECTAL 11/15/23 14:30
Q4HPRN PRN
AGOSTO, mild pain, or temp >100.4F
Acetaminophen 650 mg 10/18/23 14:31
Acetaminophen 325 Mg Tablet PO 11/15/23 14:30
Q4HPRN PRN
AGOSTO, mild pain, or temp >100.4F
Allopurinol 300 mg 10/19/23 08:00
Allopurinol 300 Mg Tablet PO 11/16/23 07:59
DAILY SOM
Aspirin 81 mg 10/19/23 08:00
Aspirin 81 Mg (Enteric Coated) Tablet PO 11/16/23 07:59
DAILY SOM
Cefdinir 300 mg 10/18/23 20:00 10/18/23 20:34
Cefdinir 300 Mg Capsule PO 300 mg
Q12 SOM Administration
Hydroxychloroquine Sulfate 200 mg 10/18/23 20:00 10/18/23 20:34
Hydroxychloroquine 200 Mg Tablet PO 11/15/23 19:59 200 mg
BID SOM Administration
Levothyroxine Sodium 50 mcg 10/19/23 07:00 10/19/23 06:17
Levothyroxine 50 Mcg Tablet PO 11/16/23 06:59 50 mcg
DAILY@0700 SOM Administration
Metoprolol Succinate 12.5 mg 10/19/23 08:00
Metoprolol 25 Mg Extended Release Tablet PO 11/16/23 07:59
DAILY SOM
Metronidazole 500 mg 10/18/23 16:00 10/18/23 23:36
Metronidazole 500 Mg Tablet PO 500 mg
Q8 SOM Administration
[2023-10-19] MEDS: ZYLOPRIM 300 MG PO (09:01)
[2023-10-19] MEDS: ASPIR LOW (ENTERIC COATED) 81 MG PO (09:01)
[2023-10-19] MEDS: OMNICEF 300 MG PO ×2 (09:01→20:31)
[2023-10-19] MEDS: PLAQUENIL 200 MG PO ×2 (09:01→20:31)
[2023-10-19] MEDS: FLAGYL 500 MG PO ×3 (09:01→23:49)
[2023-10-19] MEDS: TOPROL XL 12.5 MG PO (09:01)
--- NOTE | 2023-10-19 10:00 | VNURNOTE ---
Patient is current with [facility] only since 10/17, will monitor progress and plan at discharge.
--- NOTE | 2023-10-19 10:47 | WOUNDNOTE ---
R FLANK AND LOWER BACK
--- NOTE | 2023-10-19 10:50 | WOUNDNOTE ---
GINA RN NOTE: Patient admitted with sepsis. Recent lap. cholecystectomy by Dr. De Jesus on 10/14/23. Patient has a faint pink flat rash on R abdomen, flank, lower back and R inner arm. Rash is dry, no weeping. Suspected reaction to antibiotic post
surgery. Patient states slightly itchy on back, otherwise rash does not bother him. Pictures taken, Dr. Castano aware and no further assistance needed, will sign off.
--- NOTE | 2023-10-19 11:06 | W.PN.HOSP.TC ---
Today's Communication/Plan
-
see A/P
Assessment / Plan
Assessment / Plan
HPI: 87-year-old male with a past medical history of memory impairment, recent cholecystectomy, hypertension, gout, hypothyroidism; p/w recurrent falls at home, fluctuating weakness of both legs, mild confusion and slurred speech.
Pt was discharged the week prior. He was admitted for acute cholecystitis from last admission s/p lap stacy. He was discharged with Augmentin.
He fell today while getting out of bed, and his noticed urinary incontinence.
Patient denies to any symptoms.�
Of note, patient has been using walker for the past 12 to 15 months. He has never been formally diagnosed with dementia, although his daughters he likely has the diagnosis.
Patient has chronic urinary incontinence.
Daughter felt that his speech is more slurred compared to baseline.
A/P:
# Recurrent mechanical fall
# Underlying cognitive impairment vs undiagnosed dementia
Patient is AO x 2
MRI brain neg for acute stroke, Moderate to severe ventricular dilation, possible normal pressure hydrocephalus
normal pressure hydrencephalus is definitely a possibility with his gait instability, cognitive impairment and urinary incontinence ; family informed, Recc outpt Neuro work up
PT OT recc SNF
neuro on board
# Abdominal rash, possible related to Augmentin
Off Augmentin
Follow clinical course
# Urinary incontinence
UA clean
# Recent acute cholecystitis s/p lap stacy 10/14
He was discharged with Augmentin, now off due to skin rash.
ID on board, recc cefdinir and metronidazole to complete prior course of antibiotics.
# CKD stage 3
# Essential hypertension
continue low dose metoprolol
# Rheumatoid arthritis
continue hydroxychloroquine
# Gout
continue allopurinol
# Hypothyroidism
continue levothyroxine
DVT ppx: SCDs
Code: Full
Dispo: SNF
DW and daughter at bedside
Anticipated Discharge: Within 24 hours
Subjective/Interval History
-
Date of Service: October 19, 2023
Objective Data
-
Vital Signs:
Vital Signs
Temp Pulse Resp BP Pulse Ox
36.4 C 78 18 140/70 99
10/19/23 03:10 10/19/23 09:01 10/19/23 03:10 10/19/23 09:01 10/19/23 03:10
I&O
10/18/23 10/19/23 10/20/23
06:59 06:59 06:59
Intake Total 240 / 240
Output Total 175 / 175
Balance 65 / 65
Review of Systems
-
All other systems: Reviewed and negative
Physical Exam
-
General: Well Developed, Well Nourished, No Apparent Distress, Comfortable, Conversant and Appears Chronically Ill
HEENT: Normocephalic, Nose Appears Normal and Ears Appear Normal
Respiratory: Clear to Auscultation and Non Labored Respirations; Negative Accessory Resp Muscle Use
Cardiac: Regular Rhythm and S1/S2
GI: Soft and Nontender
Musculoskeletal: No Edema
Neuro: Awake
Psych: Calm and Other (cognitive impairment)
Data Reviewed
-
MRI: Report Reviewed by me, Discussed with Patient and Discussed with Family
Labs: Labs Reviewed by me
--- NOTE | 2023-10-19 14:31 | W.PN.ID1 ---
Date of Service
Date of Service: October 19, 2023
Today's Communication
Continue current course of antibiotics.
Assessment / Plan
Lower abdominal rash
-May be secondary to Augmentin versus contact dermatitis.
Leukocytosis
- Improved
Generalized weakness
HTN
Rosacea
Gout
Arthritis
Hypothyroidism
Cognitive impairment
BPH
Recommendations:
Continue with cefdinir and metronidazole through tomorrow to complete course (duration previously selected by Surgery)
Chief Complaint
-: Other (rash)
Subjective / Review of Systems
Review of Systems: No Fever and No Chills
Vital Signs / Physical Exam
Vital Signs
Vital Signs
Temp Pulse Resp BP Pulse Ox
98.5 F 85 16 95/56 98
10/19/23 11:38 10/19/23 11:38 10/19/23 11:38 10/19/23 11:38 10/19/23 11:38
Physical Exam
Constitutional: No Acute Distress and Comfortable
Eyes: Sclera Anicteric
Pulmonary: Non Labored
Skin: Rash (Right arm rash stable to slightly diminished. Lower abdominal rash stable without progression.)
Neurological: Awake and Alert
Psychological: Calm
Objective Data
Lab Data
Lab Results
10/18/23 09:18
10/18/23 09:18
PT 14.3 Sec (11.4-14.6) 10/18/23 09:18
INR 1.13 10/18/23 09:18
APTT 33.1 Sec (23.4-35.0) 10/18/23 09:18
Estimated Creat Clear 41 ml/min 10/18/23 09:18
Most recent labs reviewed.
--- NOTE | 2023-10-19 14:52 | CM ---
Addendum entered by MARTA Lopez 10/20/23 09:55:
[facility] liason stated that patient is current with their services.
Original Note:
Reviewed chart, met with patient and his and daughter who were at bedside to obtain information for assessment. Patient's stated that patient lives with her in a two story home with one step to enter and ramp access. Patient needs
supervision with ADLs, personal care, bathing and dressing. 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
Patient has grab bars in the shower and a shower chair. He uses a rollator to assist with his ambulation but has a w/c for long distances.
Patient's denied that patient has ever had VN services. He has never been to a SNF.
Patient has a prescription plan and uses the [facility] in [place] for all of his medications. He has a PCP, Dr. Laxmi Pinon.
Patient's and daughter stated that they will remain agreeable to what is indicated for patient at time of discharge (prior to). Will review PT/OT notes.
Plan: Case management will continue to follow and assist with discharge planning/home vrs. SNF
[2023-10-20] VITALS (7 sets, daily range): BP systolic 101–135; BP diastolic 51–71; PULSE 73; O2SAT 98
[2023-10-20] MEDS: SYNTHROID 50 MCG PO (06:05)
[2023-10-20 07:23] LABS: Hematocrit 35.8 % (39.0-52.0); Hemoglobin 12.3 g/dL (13.0-18.0); Mean Corp Hgb Conc. 34.4 g/dL (33.0-37.0); Mean Corpuscular Hgb 33.2 pg (27.0-31.0); Mean Corpuscular Volume 96.5 fL (80.0-94.0); Mean Platelet Volume 10.3 fL (7.4-10.4); Platelet Count 212 10^3/uL (130-400); Red Blood Cell Count 3.71 10^6/uL (4.70-6.10); Red Cell Dist. Width 13.8 % (11.5-14.5)
[2023-10-20] MEDS: OMNICEF 300 MG PO ×2 (07:31→20:00)
[2023-10-20] MEDS: FLAGYL 500 MG PO ×2 (07:32→16:43)
[2023-10-20] MEDS: ASPIR LOW (ENTERIC COATED) 81 MG PO (07:32)
[2023-10-20] MEDS: PLAQUENIL 200 MG PO ×2 (07:32→20:00)
[2023-10-20] MEDS: TOPROL XL 12.5 MG PO (07:32)
[2023-10-20] MEDS: ZYLOPRIM 300 MG PO (07:32)
[2023-10-20 07:41] LABS: Blood Urea Nitrogen 25 mg/dl (9-20); Calcium 8.7 mg/dl (8.4-10.2); Carbon Dioxide 25 mmol/L (22-30); Chloride 100 mmol/L (98-107); Estimated Creatinine Clearance 43 ml/min; Glucose 99 mg/dl (70-99); Sodium 134 mmol/L (135-145); eGFR 53.17
--- NOTE | 2023-10-20 10:21 | W.PN.HOSP.TC ---
Addendum entered and electronically signed by Meghan Castano MD 10/20/23 17:51:
Updated daughter on the phone
Original Note:
Today's Communication/Plan
-
see A/P
Assessment / Plan
Assessment / Plan
HPI: 87-year-old male with a past medical history of memory impairment, recent cholecystectomy, hypertension, gout, hypothyroidism; p/w recurrent falls at home, fluctuating weakness of both legs, mild confusion and slurred speech.
Pt was discharged the week prior. He was admitted for acute cholecystitis from last admission s/p lap stacy. He was discharged with Augmentin.
He fell today while getting out of bed, and his noticed urinary incontinence.
Patient denies to any symptoms.�
Of note, patient has been using walker for the past 12 to 15 months. He has never been formally diagnosed with dementia, although his daughters he likely has the diagnosis.
Patient has chronic urinary incontinence.
Daughter felt that his speech is more slurred compared to baseline.
A/P:
# Recurrent mechanical fall
# Underlying cognitive impairment vs undiagnosed dementia
Patient is AO x 2
MRI brain neg for acute stroke, Moderate to severe ventricular dilation, possible normal pressure hydrocephalus.
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
PT OT recc SNF
neuro on board
# Abdominal rash, possible related to Augmentin
Off Augmentin
Follow clinical course
# Urinary incontinence
UA clean
# Recent acute cholecystitis s/p lap stacy 10/14
He was discharged with Augmentin, now off due to skin rash.
ID on board, recc cefdinir and metronidazole to complete prior course of antibiotic, ordered for 3 days
# CKD stage 3
# Essential hypertension
continue low dose metoprolol
# Rheumatoid arthritis
continue hydroxychloroquine
# Gout
continue allopurinol
# Hypothyroidism
continue levothyroxine
DVT ppx: SCDs
Code: Full
Dispo: SNF
Anticipated Discharge: Within 24 hours
Subjective/Interval History
-
Date of Service: October 20, 2023
Objective Data
-
Labs:
Laboratory Results
10/20/23
06:50
WBC 13.0 H
Hgb 12.3 L
Hct 35.8 L
Plt Count 212
Sodium 134 L
Potassium 4.0
Chloride 100
Carbon Dioxide 25
BUN 25 H
Creatinine 1.3
Glucose 99
Calcium 8.7
Vital Signs:
Vital Signs
Temp Pulse Resp BP Pulse Ox
37.0 C 76 18 137/69 97
10/20/23 07:00 10/20/23 07:32 10/20/23 07:00 10/20/23 07:32 10/20/23 07:00
I&O
10/19/23 10/20/23 10/21/23
06:59 06:59 06:59
Intake Total 240 / 240 660 / 660
Output Total 175 / 175
Balance 65 / 65 660 / 660
Review of Systems
-
All other systems: Reviewed and negative
Physical Exam
-
General: Well Developed, Well Nourished, No Apparent Distress, Comfortable, Conversant and Appears Chronically Ill
HEENT: Normocephalic, Nose Appears Normal and Ears Appear Normal
Respiratory: Clear to Auscultation and Non Labored Respirations; Negative Accessory Resp Muscle Use
Cardiac: Regular Rhythm and S1/S2
GI: Soft and Nontender
Musculoskeletal: No Edema
Neuro: Awake
Psych: Calm and Other (cognitive impairment, slow to respond to questions )
Data Reviewed
-
MRI: Report Reviewed by me, Discussed with Patient and Discussed with Family
Labs: Labs Reviewed by me
--- NOTE | 2023-10-20 12:48 | CM ---
Addendum entered by MARTA Lopez 10/20/23 13:01:
[facility] to [facility], and [facility]
Original Note:
Reviewed chart, indication on behalf of medical staff is for SNF. Spoke with patient and his at bedside and both were agreeable to him transferring to a SNF, prior to returning home. They live in [place] and therefore were agreeable to all
local facilities in [place]. Will fax through [facility], referrals to all local facilities.
Plan: Case managment will continue to follow and assist wtith discharge planning/transfer to SNF. Attending stated that patient is medically stable.
--- NOTE | 2023-10-20 14:12 | W.PN.ID1 ---
Date of Service
Date of Service: October 20, 2023
Today's Communication
Finish antibiotics today.
Assessment / Plan
Lower abdominal rash
-May be secondary to Augmentin versus contact dermatitis.
Leukocytosis
- Stable.
Generalized weakness
HTN
Rosacea
Gout
Arthritis
Hypothyroidism
Cognitive impairment
BPH
Recommendations:
Patient to finish cefdinir and metronidazole today, then observe off antibiotics.
����������������������������������������������������������
Chief Complaint
-: Other (rash)
Subjective / Review of Systems
Review of Systems: No Fever and No Chills
Vital Signs / Physical Exam
Vital Signs
Vital Signs
Temp Pulse Resp BP Pulse Ox
98.8 F 69 18 130/63 97
10/20/23 11:00 10/20/23 11:00 10/20/23 11:00 10/20/23 11:00 10/20/23 11:00
Physical Exam
Constitutional: No Acute Distress, Comfortable and Non-toxic
Eyes: Sclera Anicteric
Cardiovascular: S1/S2; Negative S3/S4
Pulmonary: Non Labored
Gastrointestinal: Soft and Non Tender
Skin: Rash (Right antecubital area rash decreased in intensity. Lower abdominal rash also fading.)
Wound: Other (Laparoscopy incisional areas clean, dry and intact.)
Neurological: Awake and Alert
Objective Data
Lab Data
Lab Results
10/20/23 06:50
10/20/23 06:50
PT 14.3 Sec (11.4-14.6) 10/18/23 09:18
INR 1.13 10/18/23 09:18
APTT 33.1 Sec (23.4-35.0) 10/18/23 09:18
Estimated Creat Clear 43 ml/min 10/20/23 06:50
Most recent labs reviewed.
--- NOTE | 2023-10-20 16:07 | CM ---
Addendum entered by MARTA Lopez 10/20/23 16:44:
Placed a call to patient's insurance to obtain hopeful authorization however they were closed as it was after hours. Will attempt again in the am.
Original Note:
Reviewed responses in [employer] and [facility] both able to take patient. Placed a call to patient's daughter to discuss options. She selected [facility].
Placed a call to [facility] and spoke with Jeanne in admissions, who confirmed acceptance for patient. NPIs: Facility [id number] and Dr. Morelos [id number] for authorization.
Will initiate authorization.
Plan: Case management will continue to follow and assist with discharge planning. [facility] upon hopeful authorization from insurance company.
[2023-10-21 03:00] VITALS: BP 143/68
[2023-10-21] MEDS: SYNTHROID 50 MCG PO (06:20)
[2023-10-21 07:00] VITALS: BP 126/56
[2023-10-21 07:26] LABS: Hematocrit 38.5 % (39.0-52.0); Hemoglobin 12.9 g/dL (13.0-18.0); Mean Corp Hgb Conc. 33.5 g/dL (33.0-37.0); Mean Corpuscular Hgb 32.7 pg (27.0-31.0); Mean Corpuscular Volume 97.7 fL (80.0-94.0); Mean Platelet Volume 10.1 fL (7.4-10.4); Platelet Count 235 10^3/uL (130-400); Red Blood Cell Count 3.94 10^6/uL (4.70-6.10); Red Cell Dist. Width 13.8 % (11.5-14.5); White Blood Cell Count 11.4 10^3/uL (4.8-10.8)
[2023-10-21] MEDS: ZYLOPRIM 300 MG PO (08:06)
[2023-10-21] MEDS: ASPIR LOW (ENTERIC COATED) 81 MG PO (08:06)
[2023-10-21] MEDS: TOPROL XL 12.5 MG PO (08:07)
[2023-10-21] MEDS: PLAQUENIL 200 MG PO (08:07)
[2023-10-21 08:10] LABS: Blood Urea Nitrogen 27 mg/dl (9-20); Calcium 8.5 mg/dl (8.4-10.2); Carbon Dioxide 25 mmol/L (22-30); Chloride 103 mmol/L (98-107); Estimated Creatinine Clearance 40 ml/min; Glucose 91 mg/dl (70-99); Potassium 4.1 mmol/L (3.5-5.1); Sodium 133 mmol/L (135-145); eGFR 48.65
--- NOTE | 2023-10-21 08:52 | W.PN.HOSP.TC ---
Addendum entered and electronically signed by Meghan Castano MD 10/21/23 14:02:
total DC time 35 min
Original Note:
Today's Communication/Plan
-
for SNF, hopefully today
Assessment / Plan
Assessment / Plan
HPI: 87-year-old male with a past medical history of memory impairment, recent cholecystectomy, hypertension, gout, hypothyroidism; p/w recurrent falls at home, fluctuating weakness of both legs, mild confusion and slurred speech.
Pt was discharged the week prior. He was admitted for acute cholecystitis from last admission s/p lap stacy. He was discharged with Augmentin.
He fell today while getting out of bed, and his noticed urinary incontinence.
Patient denies to any symptoms.�
Of note, patient has been using walker for the past 12 to 15 months. He has never been formally diagnosed with dementia, although his daughters he likely has the diagnosis.
Patient has chronic urinary incontinence.
Daughter felt that his speech is more slurred compared to baseline.
A/P:
# Recurrent mechanical fall
# Underlying cognitive impairment vs undiagnosed dementia
Patient is AO x 2
MRI brain neg for acute stroke, Moderate to severe ventricular dilation, possible normal pressure hydrocephalus.
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
PT OT recc SNF
neuro on board
# Abdominal rash, possible related to Augmentin
Off Augmentin
Follow clinical course
# Urinary incontinence
UA clean
# Recent acute cholecystitis s/p lap stacy 10/14
He was discharged with Augmentin, now off due to skin rash.
ID on board, recc cefdinir and metronidazole in place of Augmentin, s/p 3 days Abx with cefdinir and metronidazole
# CKD stage 3
# Essential hypertension
continue low dose metoprolol
# Rheumatoid arthritis
continue hydroxychloroquine
# Gout
continue allopurinol
# Hypothyroidism
continue levothyroxine
# Mild hyponatremia
DVT ppx: SCDs
Code: Full
Dispo: SNF
Anticipated Discharge: Today
Subjective/Interval History
-
Date of Service: October 21, 2023
Objective Data
-
Labs:
Laboratory Results
10/21/23
06:51
WBC 11.4 H
Hgb 12.9 L
Hct 38.5 L
Plt Count 235
Sodium 133 L
Potassium 4.1
Chloride 103
Carbon Dioxide 25
BUN 27 H
Creatinine 1.4 H
Glucose 91
Calcium 8.5
Vital Signs:
Vital Signs
Temp Pulse Resp BP Pulse Ox
36.9 C 69 18 126/56 96
10/21/23 07:00 10/21/23 08:07 10/21/23 07:00 10/21/23 08:07 10/21/23 07:00
I&O
10/20/23 10/21/23 10/22/23
06:59 06:59 06:59
Intake Total 660 / 660 660 / 660
Balance 660 / 660 660 / 660
Review of Systems
-
All other systems: Reviewed and negative
Physical Exam
-
General: Well Developed, Well Nourished, No Apparent Distress, Comfortable, Conversant and Appears Chronically Ill
HEENT: Normocephalic, Nose Appears Normal and Ears Appear Normal
Respiratory: Clear to Auscultation and Non Labored Respirations; Negative Accessory Resp Muscle Use
Cardiac: Regular Rhythm and S1/S2
GI: Soft and Nontender
Musculoskeletal: No Edema
Neuro: Awake
Psych: Calm and Other (cognitive impairment, slow to respond to questions )
Data Reviewed
-
MRI: Report Reviewed by me, Discussed with Patient and Discussed with Family
Labs: Labs Reviewed by me
--- NOTE | 2023-10-21 10:13 | CM ---
Addendum entered by MARTA Lopez 10/21/23 12:53:
Placed a call to [facility] again and got Jeanne in admissions who stated for report call [phone] and fax [phone]. Medical necessity and transfer sheet completed and provided to [facility] community youth secretary.
Addendum entered by MARTA Lopez 10/21/23 11:13:
Received authorization from [facility] from a sales representative graphic art named, Tre who stated that reference# is auth# and patient is approved for 3 days. Next review date is the . Admissions should call, .
Placed a call to admissions however had to leave a voice mail message. Will await return call to obtain # for report and fax#.
Original Note:
Reviewed chart, spoke with attending who stated that patient is medically stable for discharge. Placed a call to [facility] to obtain authorization for transfer to SNF and call was answered by a sales representative graphic art named, Nicholas, who after receiving verbal
information on patient stated that reference# is [id number] and asked that clinical be faxed to [phone]. Direct phone# [phone] option 3. Will f/u if taking too long.
Plan: Case management will continue to follow and assist with discharge planning. Transfer to [facility] once auth is obtained.
[2023-10-21 10:27] VITALS: BP 154/78; BP 157/77; PULSE 70; O2SAT 97
[2023-10-21 11:00] VITALS: BP 130/66
--- NOTE | 2023-10-21 12:56 | W.DCSUMMARY ---
Discharge Summary
Discharge Data
Date of Admission: 10/18/23
Date of Discharge: 10/21/23
-
Pending Results: No
Hospital Course
Principal Diagnosis:
Recurrent mechanical fall
Abdominal rash, possible related to Augmentin
Chronic Diagnoses:�
Recent acute cholecystitis s/p lap stacy 10/14/23
Memory impairment
Chronic Urinary incontinence
CKD stage 3
Essential hypertension
Rheumatoid arthritis on hydroxychloroquine
Gout on allopurinol
Hypothyroidism on levothyroxine
Consultations:�
Neurology
Procedures:�
None
Clinical course:�
This is a 87-year-old male with past medical history as stated above, who presented with recurrent falls at home, fluctuating weakness in both legs, mild confusion and slurred speech.
He was discharged the week prior for acute cholecystitis s/p lap stacy. He was discharged home with Augmentin.
Problem 1:
Recurrent mechanical fall, weakness in his legs and confusion which appears chronic.
The patient most likely has underlying cognitive impairment vs undiagnosed dementia.
He was admitted for stroke rule out.
His MRI brain was negative for acute stroke, but noted moderate to severe ventricular dilation, possible normal pressure hydrocephalus.
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
His family has been informed to take him for neurology follow-up outpatient.
He was discharged to SNF per PT OT recc.
As for the rest of his medical problems, they were stable during his hospital stay.
Discharge Plan
-
Patient Disposition: Intermediate/SNF
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
Condition: Fair
Diet: As tolerated, Low Fat, Low Cholesterol and Low Sodium
Activity: As tolerated
Driving Restrictions: No driving
Activity Restrictions/Additional Instructions:
Follow up with neurologist outpatient.
Referrals:
Chito Lee MD [Family Provider] - in less than 1 week
Prescriptions:
Continued
midodrine 5 mg Tablet
5 mg PO TIDPRN PRN (Reason: low bp)
levothyroxine [Synthroid] 50 mcg Tablet
50 mcg PO DAILY AT 0700
allopurinol 300 mg Tablet
300 mg PO DAILY
metoprolol succinate [Toprol XL] 25 mg Tablet Extended Release 24 Hr
12.5 mg PO DAILY
hydroxychloroquine [Plaquenil] 200 mg Tablet
200 mg PO BID
cholecalciferol (vitamin D3) [Vitamin D3] 25 mcg (1,000 unit) Tablet
25 mcg PO NOON
acetaminophen [Tylenol Extra Strength] 500 mg Tablet
1,000 mg PO Q4H PRN (Reason: mild pain)
aakiandcxdvz-hmztrwbk-qqkgot Tablet
1 tab PO NOON
Discontinued
amoxicillin-pot clavulanate 875-125 mg tablet
1 tab PO Q12H
Patient Comments:
10/18/2023, pt. filled this med. on 10/15/2023 and is instructed to take one tablet Q12H for 5 days. Pt. had first dose on Wednesday night (10/15/2023) and has taken 5 tablets since then; per pt. family, last dose should be Wednesday morning
(10/20/2023).
Discharge Orders:
Discharge Patient (As Directed); Ordered 10/21/23
Ordered By: Meghan Castano
--- NOTE | 2023-10-21 13:37 | W.PN.ID1 ---
Date of Service
Date of Service: October 21, 2023
Today's Communication
Sign off
Assessment / Plan
Lower abdominal rash
-May be secondary to Augmentin versus contact dermatitis.
Leukocytosis
- Stable.
Generalized weakness
HTN
Rosacea
Gout
Arthritis
Hypothyroidism
Cognitive impairment
BPH
Recommendations:
Patient is completing course of antibiotics. Rash essentially resolved.
Nothing further to add from an Infectious Diseases standpoint.
Will see again at your request.
����������������������������������������������������������
Chief Complaint
-: Other (rash)
Subjective / Review of Systems
Review of Systems: No Fever and No Chills
Vital Signs / Physical Exam
Vital Signs
Vital Signs
Temp Pulse Resp BP Pulse Ox
97.6 F 80 18 130/66 96
10/21/23 11:00 10/21/23 11:00 10/21/23 11:00 10/21/23 11:00 10/21/23 11:00
Physical Exam
Constitutional: No Acute Distress, Comfortable and Chronically Ill
Cardiovascular: S1/S2; Negative S3/S4
Pulmonary: Non Labored
Gastrointestinal: Soft
Skin: Rash (Right antecubital rash and lower abdominal rash almost completely resolved. No new rashes noted.)
Neurological: Awake
Objective Data
Lab Data
Lab Results
10/21/23 06:51
10/21/23 06:51
PT 14.3 Sec (11.4-14.6) 10/18/23 09:18
INR 1.13 10/18/23 09:18
APTT 33.1 Sec (23.4-35.0) 10/18/23 09:18
Estimated Creat Clear 40 ml/min 10/21/23 06:51
Most recent labs reviewed.
== END 2023-10-21 16:27 ==
LOC: 3 WEST ACU 13:16
PROVIDERS: ADMITTING PHYSICIAN Internal Medicine; CONSULT PHYSICIAN Internal Medicine Infectious Disease; CONSULT PHYSICIAN Student in an Organized Health Care Education/Training Program; EMERGENCY PHYSICIAN Emergency Medicine; FAMILY PHYSICIAN Internal Medicine
DX: R53.1 Weakness (principal); W06.XXXA Fall from bed, initial encounter; Y93.9 Activity, unspecified; Y92.003 Bedroom of unspecified non-institutional (private) residence as the place of occurrence of the external cause; R47.81 Slurred speech; R29.6 Repeated falls; I10 Essential (primary) hypertension; N40.0 Benign prostatic hyperplasia without lower urinary tract symptoms; R21 Rash and other nonspecific skin eruption; R41.89 Other symptoms and signs involving cognitive functions and awareness; M06.9 Rheumatoid arthritis, unspecified; I12.9 Hypertensive chronic kidney disease with stage 1 through stage 4 chronic kidney disease, or unspecified chronic kidney disease; N18.30 Chronic kidney disease, stage 3 unspecified; R26.9 Unspecified abnormalities of gait and mobility; R41.0 Disorientation, unspecified; D72.829 Elevated white blood cell count, unspecified; L71.9 Rosacea, unspecified; E87.1 Hypo-osmolality and hyponatremia; R32 Unspecified urinary incontinence; E03.9 Hypothyroidism, unspecified; H02.402 Unspecified ptosis of left eyelid; M10.9 Gout, unspecified; Z90.49 Acquired absence of other specified parts of digestive tract; Z91.81 History of falling; Z79.890 Hormone replacement therapy
CPT/HCPCS: 70450; 70551; 80048; 80061; 81003; 82962; 85025; 85027; 85610; 85730; 92526; 92610; 93005; 93880; 97116; 97163; 97167; 97530; 99291; G0378

== ENCOUNTER 2023-11-03 23:35 | Inpatient (IN) | payer OTHER, SELFPAY ==
[2023-11-03] VITALS (7 sets, daily range): BP systolic 93–112; BP diastolic 53–78
[2023-11-03] MEDS: NSS 1000 IV (18:45)
[2023-11-03 18:55] LABS: % Basophils 0.6 % (0-2); % Eosinophils 0.9 % (0-6); % Immature Granulocytes 1.1 % (0-0.5); % Lymphocytes 3.9 % (20.5-51.1); % Monocytes 7.6 % (1.7-9.3); % Neutrophils 85.9 % (42.2-75.2); Absolute Basophils 0.1 10^3/uL (0-0.2); Absolute Eosinophils 0.2 10^3/uL (0-0.7); Absolute Immature Granulocytes 0.2 10^3/uL (0-0.05); Absolute Lymphocytes 0.7 10^3/uL (1.2-3.4); Absolute Monocytes 1.4 10^3/uL (0.1-0.6); Absolute Neutrophils 15.5 10^3/uL (1.4-6.5); Hematocrit 39.1 % (39.0-52.0); Hemoglobin 13.3 g/dL (13.0-18.0); Mean Corpuscular Hgb 32.6 pg (27.0-31.0); Mean Corpuscular Volume 95.8 fL (80.0-94.0); Mean Platelet Volume 10.6 fL (7.4-10.4); Nucleated Red Blood Cells % 0 % (-); Platelet Count 241 10^3/uL (130-400); Red Blood Cell Count 4.08 10^6/uL (4.70-6.10); Red Cell Dist. Width 13.5 % (11.5-14.5); White Blood Cell Count 18.1 10^3/uL (4.8-10.8)
[2023-11-03 19:09] LABS: ALT (SGPT) 46 U/L (0-50); AST (SGOT) 49 U/L (17-59); Alkaline Phosphatase 138 U/L (38-126); Blood Urea Nitrogen 49 mg/dl (9-20); Calcium 8.5 mg/dl (8.4-10.2); Carbon Dioxide 20 mmol/L (22-30); Chloride 101 mmol/L (98-107); Glucose 121 mg/dl (70-99); Potassium 4.2 mmol/L (3.5-5.1); Sodium 129 mmol/L (135-145); Total Bilirubin 0.9 mg/dl (0.2-1.3); Total Protein 5.8 g/dl (6.3-8.2); eGFR 28.28
[2023-11-03 20:30] LABS: Urine Albumin 3+ (Neg - Trace); Urine Bilirubin Negative (Negative); Urine Character Bloody (Clear); Urine Color Red; Urine Glucose Negative (Negative); Urine Ketone Trace (Negative); Urine Leukocyte Negative (Negative); Urine Nitrite Negative (Negative); Urine Occult Blood 3+ (Negative); Urine Urobilinogen Negative (Neg - 1+)
[2023-11-03 20:40] LABS: Urine Red Blood Cell >100 /HPF (0-2); Urine Squamous Cell 0-2 /LPF (Few); Urine White Cell None Seen /HPF (0-5)
--- NOTE | 2023-11-03 20:51 | ED.GENMED ---
History of Present Illness
General
Chief Complaint: Urinary Symptoms
Source: patient and family ( and 2 daughters at bedside)
Exam Limitations: none
Time Seen by Provider: 11/03/23 17:43
Nursing documentation reviewed up to this point in time: agreed with
Travel History
Have you had any contact with someone who has COVID-19?: No
Do you have any symptoms of coronavirus? Fever > 100 degrees, chills, cough, shortness of breath, sore throat, loss of taste or smell, muscle aches, or headache?: No
History of Present Illness
History of Present Illness:
87-year-old male with history of hypothyroidism, gout, RA on hydroxychloroquine, HTN, CKD 3, chronic urinary incontinence, memory impairment, recent acute cholecystitis status post lap stacy on 10/14/2023 presents from [facility] for
inability to urinate. WBC has been high since 10/13/23 w cholecystitis and was trending down, today, at [facility] was 19 according to family so wanted to check U/A but pt couldn't void so sent here. He has had poor appetite past 2 days. Has had
intermittent nausea, no vomiting. Lázaro nausea presently. Denies CP, SOB, abdominal pain. No fevers.
Past History
Past History
ED Past Medical History: HTN, Hypothyroidism, Other (Gout, mild cognitive impairment, rheumatoid arthritis, rosacea) and Other (BPH)
ED Past Surgical History: Cholecystectomy and Orthopedic
Social History
Tobacco: Non-smoker
Personal:
Living: with family
Family History
Family History: Other (reviewed and non-contributory)
Review of Systems
Review of Systems
Allergies reviewed?: Yes
All Other Systems: ROS reviewed and negative except as documented in HPI and ROS
Constitutional: Reports fatigue; Denies fever
ABD/GI: Reports nausea (complained of nausea yesterday per family, he denies nausea now) and anorexia; Denies abdominal pain, vomiting or diarrhea
: Reports incontinence and difficulty voiding; Denies dysuria
Musculoskeletal: Denies edema
Skin: Reports no symptoms
Neurological: Denies headache
Phy Exam
Physical Exam
Physical Exam:
GENERAL: No acute distress. A&Ox3. Somnolent
CONSTITUTIONAL: Afebrile. Temperature 99.4. For this examiner
EYES: PERRL, conjunctivae normal
ENMT: moist mucus membranes, Pharynx nl
RESPIRATORY: Regular respirations, nonlabored, lungs clear.
CARDIOVASCULAR: Regular rate and rhythm, no murmurs, no rubs.
GI: Soft, nontender, normal BS
: Small amount of blood at the urethral opening traumatic catheter attempt
MUSCULOSKELETAL: No edema. well perfused.
SKIN: Warm, dry, pale
PSYCH: Depressed mood and affect. Well kept.
NEUROLOGIC: Somnolent, easily awakened oriented. No focal neurological deficits
Course
Orders/Labs/Results
Orders:
Orders
11/03/23 18:20
0.9% Sodium Chloride 1000 ml [Nss] 1,000 ml IV BOLUS
11/03/23 18:44
Complete Blood Count/With Diff Urgent
Comprehensive Metabolic Panel Urgent
11/03/23 20:11
Urinalysis Reflex To Culture Urgent
Date Specimen was Collected: 11/03/23
Time Specimen was Collected: 20:10
Urine Microscopic Reflex Cult Urgent
11/03/23 23:15
STOOL [C difficile Antigen & Toxins] Urgent
GUERLINE Source: Feces/Stool
Specimen Description:
11/03/23 23:16
Admit/Transfer Patient As Directed
Co-Sign Provider:
Level of Care: Inpatient admission
Assign to:: Telemetry
Physician / Group: Lynn
Diagnosis: JACQUELIN; Hyponatremia
Reason for Telemetry: Arrhythmia
Date to Stop Telemetry: 11/06/23
Time to Stop Telemetry: 11:00
Reason for Hospitalization: IVFs
Expected length of stay greater than two midnights?: Yes
ELOS- Estimated Length of Stay in days: 3
I certify the patient meets the requirements for IP care: Yes
11/03/23 23:21
Code Status As Directed
Resuscitation Status: Full Code
11/06/23 11:00
DC Protocol for Telemetry ONCE
Abnormal Lab Results
11/03/23 11/03/23
18:44 20:11
WBC 18.1 H 10^3/uL
(4.8-10.8)
RBC 4.08 L 10^6/uL
(4.70-6.10)
MCV 95.8 H fL
(80.0-94.0)
MCH 32.6 H pg
(27.0-31.0)
MPV 10.6 H fL
(7.4-10.4)
Abs Immat Gran (auto) 0.2 H 10^3/uL
(0-0.05)
Absolute Neuts (auto) 15.5 H 10^3/uL
(1.4-6.5)
Absolute Lymphs (auto) 0.7 L 10^3/uL
(1.2-3.4)
Absolute Monos (auto) 1.4 H 10^3/uL
(0.1-0.6)
Immature Gran % 1.1 H %
(0-0.5)
Neutrophils % 85.9 H %
(42.2-75.2)
Lymphocytes % 3.9 L %
(20.5-51.1)
Sodium 129 L mmol/L
(135-145)
Carbon Dioxide 20 L mmol/L
(22-30)
BUN 49 H mg/dl
(9-20)
Creatinine 2.2 H mg/dL
(0.7-1.3)
Glucose 121 H mg/dl
(70-99)
Alkaline Phosphatase 138 H U/L
(38-126)
Total Protein 5.8 L g/dl
(6.3-8.2)
Albumin 3.0 L g/dl
(3.5-5.0)
Urine Ketones Trace A
(Negative)
Ur Occult Blood Reflex 3+ A
(Negative)
Urine RBC >100 A /HPF
(0-2)
Urine Albumin (Reflex) 3+ A
(Neg - Trace)
11/03/23 18:44
11/03/23 18:44
Vital Signs
Initial and Last Documented VS:
Initial Vital Signs
Temp Pulse Resp BP Pulse Ox
98.7 F 104 22 93/59 98
11/03/23 17:26 11/03/23 17:26 11/03/23 17:26 11/03/23 17:26 11/03/23 17:26
Last Documented Vital Signs
Temp Pulse Resp BP Pulse Ox
98.7 F 98 21 104/74 98
11/03/23 17:26 11/03/23 22:36 11/03/23 22:36 11/03/23 22:36 11/03/23 18:45
MDM/Problems Addressed
Differential Diagnosis Includes:
UTI, dehydration
MDM/Problems Addressed:
87-year-old male with history of hypothyroidism, gout, RA on hydroxychloroquine, HTN, CKD 3, chronic urinary incontinence, memory impairment, recent acute cholecystitis status post lap stacy on 10/14/2023 presents from [facility] for
inability to urinate. WBC has been high since 10/13/23 w cholecystitis and was trending down, today, at [facility] was 19 according to family so wanted to check U/A but pt couldn't void so sent here. He has had poor appetite past 2 days. Has had
intermittent nausea, no vomiting. Lázaro nausea presently. Denies CP, SOB, abdominal pain. No fevers.
Afebrile
Unable to urinate on demand, bladder scan reveals 140 mL of urine, unsuccessful attempt to straight cath by RN x 2. Holding a urinal in place to catch urine
11/03/2023 2000 PM
CBC: WBC 18.1With elevated neutrophils this is trending up from previous. Seems to be chronic with no obvious source: Afebrile, no respiratory symptoms, abdomen benign, urine negative
CMP: Sodium 129, BUN/creat 49/2.2 with GFR 28.28 Mildly elevated alk phosphatase
UA with blood (had traumatic Humphreys insertion attempt), no infection
11/03/2023 2250 PM
Plan: Admit, hyponatremia, acute on chronic renal failure, persistent leukocytosis
Hospitalist notified of admission
*Critical Care Note
Total Time (30-74mins, 75-104mins- exclusive of procedures): Not Applicable
ED Attending Note
-
Portions of this chart may have been created with voice recognition software.� Occasional wrong word or��sound alike� substitutions may have occurred due to the inherent limitations of voice recognition software.
Discharge Plan
Departure
Patient Disposition: Admit
Date of Disposition: 11/03/23
Time of Disposition: 21:17
Admit to: Med/Surg
Presentation/result/management discussed w/ accepting MD/DO: Hospitalist
Condition: Serious
Discharge Problem:
Acute on chronic kidney failure, Leukocytosis, Acute hyponatremia
Interventions
Interventions:
*Risk Screen - Suicide Last Done: 11/03/23 17:25
*General Assessment Last Done: 11/03/23 17:25
*Neglect/Abuse Screening Last Done: 11/03/23 17:25
*ED COVID-19 Vaccine History Last Done: 11/03/23 17:25
ED-Male Genitourinary Assessment Last Done: 11/03/23 17:25
--- NOTE | 2023-11-03 23:24 | HPS.HSE ---
Addendum entered and electronically signed by Maryjane Bailey MD 11/03/23 23:37:
Patient seen and examined independently with PA.� 87-year-old male past medical history of memory impairment, urine incontinence, CKD 3, hypertension, arthritis, gout, hypothyroidism, recent abdominal rash possibly related to Augmentin, recent
cholecystectomy, presenting for inability to urinate as well as diarrhea at [facility].� He has had poor appetite, intermittent nausea, burning with urination.� Blood pressure in the 90s systolic.� Labs show leukocytosis, worsening of CKD with
creatinine of 2.2, hyponatremia sodium of 129.� Patient appears to be dehydrated possibly from diarrhea possibly related to antibiotic previously although unclear onset and duration.
Patient was straight catheterized 140 cc to obtain urine.� Urinalysis does not show evidence of infection and presence of RBCs likely due to straight catheterization.� Dysuria likely also related to this.� Check C. difficile if able.� Maintain
bladder scan protocol.� IV fluids.
Original Note:
Family Physician
-
Family Physician: Eron Gurrola
Chief Complaint
-
Diarrhea
History of Present Illness
Pt is an 87yo M w/ a PMH of HTN, CKD-III, hypothyroidism, gout, RA on hydroxychloroquine, recent acute cholecystitis s/p laparoscopic cholecystectomy on 10/14/2023 presents from [facility] for inability to urinate. His and daughter are
present with him and are speaking on the patient's behalf due to chronic memory impairment. Pt's states that he has had diarrhea for the past several days and states the patient has been nauseous and not eating x 2 days. The daughter also notes
that [facility] is testing him for C.Diff due to diarrhea and the daughter reports that the patient passed very foul smelling gas while here, but has not defecated since his arrival. Work-up in the ED did not reveal urinary retention as bladder
scan with only 140cc, but did reveal JACQUELIN. Hospitalist group was asked to evaluate the patient for admission to the hospital
Medical History
Past Medical History
Past Medical History: Reports Other
Additional Past Medical History:
CKD Stage III
Essential Hypertension
Hypothyroidism
Cognitive Impairment
Ambulatory Dysfunction
Rheumatoid Arthritis
Gout
Past Surgical History: Reports Other
Additional Past Surgical History:
Cholecystectomy
Social History
Tobacco: Non-smoker
Alcohol: None
Drug: None
Living: Other (Patient usually resides with family, but is currently undergoing rehab at local [facility])
Family History
Family History: Not pertinent
Allergies / Home Medications
Allergies reflects when Allergies were last updated in [employer].
Home Medications with original date entered in [employer]
Allergy/Medication List:
Allergies
Allergy/AdvReac Type Severity Reaction Status Date / Time
No Known Allergies Allergy Unverified 10/13/23 15:36
Home Medications
allopurinol 300 mg tablet 300 mg PO DAILY Gout 10/13/23
cholecalciferol (vitamin D3) 25 mcg (1,000 unit) tablet (Vitamin D3) 25 mcg PO DAILY Supplement 10/13/23
hydroxychloroquine 200 mg tablet (Plaquenil) 200 mg PO BID Rheumatoid arthritis 10/13/23
levothyroxine 50 mcg tablet (Synthroid) 50 mcg PO DAILY AT 0700 Thyroid 10/13/23
midodrine 5 mg tablet 5 mg PO Q8H PRN hypotensive episoide 10/13/23
vipfdqjoowfc-biebwzbn-vdxsia tablet 1 tab PO DAILY Supplement 10/18/23
acetaminophen 325 mg tablet 650 mg PO Q4H PRN mild pain/temp>100F 11/03/23
bisacodyl 10 mg rectal suppository (Dulcolax (bisacodyl)) 10 mg [place] DAILY PRN if mom is ineffective after 24hrs 11/03/23
magnesium hydroxide 400 mg/5 mL oral suspension (Milk of Magnesia) 30 ml PO DAILY PRN if no bm x 3 days 11/03/23
midodrine 2.5 mg tablet 2.5 mg PO TID 11/03/23
mirtazapine 15 mg tablet (Remeron) 7.5 mg PO QPM 11/03/23
sodium phosphates 19 gram-7 gram/118 mL enema (Fleet Enema) 118 ml [place] DAILY PRN if dulcolax is ineffective after 24hrs 11/03/23
Review of Systems
-
Unable to obtain full review of systems at this time due to: Other (Cognitive Impairment)
Physical Exam
Vital Signs
Vital Signs
Temp Pulse Resp BP Pulse Ox
98.7 F 98 21 104/74 98
11/03/23 17:26 11/03/23 22:36 11/03/23 22:36 11/03/23 22:36 11/03/23 18:45
Physical Exam
General: Well Developed, Well Nourished and No Apparent Distress
HEENT: NormoCephalic, Anicteric and Atraumatic
Respiratory: Clear and Non Labored Respirations
Cardiac: S1/S2 and Regular Rhythm
GI: Soft and Non Tender
Genito-urinary: Bloody Urine (Following multiple straight cath attempts)
Musculoskeletal: No Clubbing, No Cyanosis and No Edema
Skin: Warm and Dry
Neuro: Awake, Alert, Oriented and Nonfocal/grossly intact
Laboratory Results
-
11/03/23 18:44
11/03/23 18:44
Laboratory Results
Total Bilirubin 0.9 mg/dl (0.2-1.3) 11/03/23 18:44
AST 49 U/L (17-59) 11/03/23 18:44
ALT 46 U/L (0-50) 11/03/23 18:44
Alkaline Phosphatase 138 U/L (38-126) H 11/03/23 18:44
Data Reviewed
-
Lab Data: Labs Reviewed by me
Old Records: Reviewed
Impression/Plan
-
Hyponatremia and JACQUELIN on CKD Stage III due to volume depletion in setting of poor oral intake and diarrhea
-Continue IVFs
-Monitor bladder scans
-Recheck labs in AM
Diarrhea
-Add probiotics
-Attempt to obtain stool sample for C diff testing given recent antibiotics
Hypotension
-Continue midodrine as prior to admission
Hypothyroidism
-Continue Synthroid
Cognitive Impairment
-Previous notes indicate possibility of NPH - Follow-up with Neurology as outpatient
Ambulatory Dysfunction
-Consult PT/OT
Rheumatoid Arthritis
-Continue hydroxychloroquine
DVT proph: SC Heparin
Code Status: Full Code
[2023-11-04] VITALS (11 sets, daily range): BP systolic 87–125; BP diastolic 43–75; BMI 22.8; BMI 22.7
[2023-11-04] MEDS: NSS 1000 IV ×3 (01:08→22:10)
[2023-11-04] MEDS: HEPARIN 5000 UNITS SC ×4 (01:08→23:20)
[2023-11-04] MEDS: SYNTHROID 50 MCG PO (06:05)
[2023-11-04 06:13] LABS: Hematocrit 35.5 % (39.0-52.0); Mean Corp Hgb Conc. 33.8 g/dL (33.0-37.0); Mean Corpuscular Hgb 32.4 pg (27.0-31.0); Mean Corpuscular Volume 95.9 fL (80.0-94.0); Mean Platelet Volume 10.9 fL (7.4-10.4); Platelet Count 206 10^3/uL (130-400); Red Cell Dist. Width 13.6 % (11.5-14.5); White Blood Cell Count 17.3 10^3/uL (4.8-10.8)
[2023-11-04 06:46] LABS: Blood Urea Nitrogen 48 mg/dl (9-20); Calcium 8.2 mg/dl (8.4-10.2); Carbon Dioxide 18 mmol/L (22-30); Chloride 104 mmol/L (98-107); Estimated Creatinine Clearance 27 ml/min; Glucose 102 mg/dl (70-99); Magnesium 2.3 mg/dl (1.6-2.3); Potassium 4.1 mmol/L (3.5-5.1); Sodium 132 mmol/L (135-145)
[2023-11-04 07:16] LABS: TSH Reflex To Free T4 4.03 uIU/ml (0.47-4.68)
[2023-11-04] MEDS: ProAmatine 2.5 MG PO ×3 (08:49→22:14)
[2023-11-04] MEDS: FLORASTOR 250 MG PO ×2 (08:50→20:52)
[2023-11-04] MEDS: ZYLOPRIM 300 MG PO (08:50)
[2023-11-04] MEDS: PLAQUENIL 200 MG PO ×2 (08:50→20:52)
--- NOTE | 2023-11-04 09:18 | W.PN.HOSP.TC ---
Today's Communication/Plan
-
see A/P
Assessment / Plan
Assessment / Plan
87yo M with PMH of HTN, CKD-III, hypothyroidism, gout, RA on hydroxychloroquine, recent acute cholecystitis s/p laparoscopic cholecystectomy on 10/14/2023, presented from [facility] for inability to urinate.
Pt's stated that he has had diarrhea for the past several days and that the patient has been nauseous and not eating x 2 days. The daughter also noted that [facility] is testing him for C.Diff due to diarrhea and the daughter reported that
the patient passed very foul smelling gas while here, but has not defecated since his arrival.
Work-up in the ED did not reveal urinary retention as bladder scan with only 140cc, but did reveal JACQUELIN.�
Hospitalist group was asked to evaluate the patient for admission to the hospital
A/P:
# Hyponatremia and JACQUELIN on CKD Stage III due to volume depletion in setting of poor oral intake and diarrhea
Continue IVFs
Monitor bladder scans
Admission UA noted bloody urine likely from retention
Check repeat UA reflex Cx
# Diarrhea
Added probiotics
check C diff, Norovirus and Stool Cx
# leucocytosis likely reactive
Follow blood culture
trend WBC
# Hypotension has resolved
Continue midodrine as prior to admission
IVF as above
# Hypothyroidism
Continue Synthroid
# Cognitive Impairment
Previous notes indicate possibility of NPH - Follow-up with Neurology as outpatient
# Ambulatory Dysfunction
PT/OT
# Rheumatoid Arthritis
Continue hydroxychloroquine
DVT proph: SC Heparin
Code Status: Full Code
DW RN
called twice, calls not answered
Anticipated Discharge: 24 - 48 hours
Subjective/Interval History
-
Date of Service: November 04, 2023
Objective Data
-
Labs:
Laboratory Results
11/04/23
05:48
WBC 17.3 H
Hgb 12.0 L
Hct 35.5 L
Plt Count 206
Sodium 132 L
Potassium 4.1
Chloride 104
Carbon Dioxide 18 L
BUN 48 H
Creatinine 2.1 H
Glucose 102 H
Calcium 8.2 L
Vital Signs:
Vital Signs
Temp Pulse Resp BP Pulse Ox
36.2 C 85 14 122/67 99
11/04/23 07:41 11/04/23 07:41 11/04/23 07:41 11/04/23 07:41 11/04/23 07:41
I&O
11/03/23 11/04/23 11/05/23
06:59 06:59 06:59
Intake Total 1080 / 1080
Balance 1080 / 1080
Review of Systems
-
Unable to obtain full review of systems at this time due to: Dementia
Physical Exam
-
General: Well Developed, Well Nourished, No Apparent Distress, Comfortable, Conversant and Appears Chronically Ill
HEENT: Normocephalic, Nose Appears Normal and Ears Appear Normal
Respiratory: Clear to Auscultation and Non Labored Respirations; Negative Accessory Resp Muscle Use
Cardiac: Regular Rhythm and S1/S2
GI: Soft and Nontender
Neuro: Awake
Psych: Calm and Other (cognitive impairment, slow to respond to questions )
Data Reviewed
-
Labs: Labs Reviewed by me
[2023-11-04 10:03] LABS: Urine Albumin Trace (Neg - Trace); Urine Bilirubin 1+ (Negative); Urine Character Clear (Clear); Urine Color Yellow; Urine Glucose Negative (Negative); Urine Ketone Negative (Negative); Urine Leukocyte Trace (Negative); Urine Nitrite Negative (Negative); Urine Occult Blood Negative (Negative); Urine Urobilinogen Negative (Neg - 1+)
[2023-11-04 10:18] LABS: Urine Hyaline Cast >15 /LPF (0-2)
[2023-11-04 10:19] LABS: Urine Bacteria Few (Negative); Urine Red Blood Cell 0-2 /HPF (0-2)
--- NOTE | 2023-11-04 13:59 | CM ---
Patient asleep bedside, initial assessment completed by and daughter. Per family patient was previously at [facility] and switched a week ago to [facility]. Patient was previously living at home prior to SNF stays. Family reports
patient ambulates with a walker or cane, has had [facility] in the past. reports PCP is Dr. Vinson, pharmacy formerly [facility]. CM spoke with Rosamaria, liaison at [facility], patient will require authorization to return to SNF, watch for PT/OT evals.
CM will continue to follow for discharge planning needs.
Plan; return to [facility] pending bed availability and auth, when medically stable.
[2023-11-04] MEDS: NSS 250 IV (15:40)
--- NOTE | 2023-11-04 15:40 | PTCARENOTE ---
Addendum entered by Licha Cirstina RN 11/04/23 16:56:
Repeat BP after bolus 97/43 HR 90. Patient states no concerns at this time, MD made aware, no new orders at this time.
Original Note:
Patient's BP taken by tech 89/50 HR 89 supine in bed. Patient states no concerns at this time, currently with NSS infusing at 100 ml/hr. MD made aware of BP, verbal order taken over telephone for 250 ml NSS bolus.
[2023-11-04] MEDS: REMERON 7.5 MG PO (17:03)
[2023-11-04] MEDS: FIRVANQ 125 MG PO ×2 (17:03→23:20)
[2023-11-05] VITALS (7 sets, daily range): BP systolic 99–119; BP diastolic 40–53; BMI 23.2
[2023-11-05] MEDS: FIRVANQ 125 MG PO ×4 (05:42→23:19)
[2023-11-05 06:14] LABS: Hematocrit 29.9 % (39.0-52.0); Mean Corp Hgb Conc. 33.4 g/dL (33.0-37.0); Mean Corpuscular Hgb 32.2 pg (27.0-31.0); Mean Corpuscular Volume 96.1 fL (80.0-94.0); Mean Platelet Volume 10.8 fL (7.4-10.4); Platelet Count 173 10^3/uL (130-400); Red Blood Cell Count 3.11 10^6/uL (4.70-6.10); Red Cell Dist. Width 13.9 % (11.5-14.5); White Blood Cell Count 12.4 10^3/uL (4.8-10.8)
[2023-11-05 06:32] LABS: Blood Urea Nitrogen 33 mg/dl (9-20); Calcium 7.4 mg/dl (8.4-10.2); Carbon Dioxide 16 mmol/L (22-30); Chloride 111 mmol/L (98-107); Estimated Creatinine Clearance 32 ml/min; Glucose 85 mg/dl (70-99); Magnesium 2.4 mg/dl (1.6-2.3); Potassium 3.8 mmol/L (3.5-5.1); Sodium 133 mmol/L (135-145); eGFR 35.98
[2023-11-05] MEDS: NSS 1000 IV ×2 (08:17→17:00)
[2023-11-05] MEDS: SYNTHROID 50 MCG PO (08:18)
[2023-11-05] MEDS: FLORASTOR 250 MG PO ×2 (08:18→21:00)
[2023-11-05] MEDS: HEPARIN 5000 UNITS SC ×3 (08:18→23:19)
[2023-11-05] MEDS: PLAQUENIL 200 MG PO ×2 (08:18→21:00)
[2023-11-05] MEDS: ZYLOPRIM 300 MG PO (08:18)
[2023-11-05] MEDS: ProAmatine 2.5 MG PO ×3 (08:18→21:00)
--- NOTE | 2023-11-05 12:03 | W.PN.HOSP.TC ---
Addendum entered and electronically signed by Meghan Castano MD 11/05/23 12:19:
updated daughter on the phone
Original Note:
Today's Communication/Plan
-
see A/P
Assessment / Plan
Assessment / Plan
87yo M with PMH of HTN, CKD-III, hypothyroidism, gout, RA on hydroxychloroquine, recent acute cholecystitis s/p laparoscopic cholecystectomy on 10/14/2023, presented from [facility] for inability to urinate.
Pt's stated that he has had diarrhea for the past several days and that the patient has been nauseous and not eating x 2 days. The daughter also noted that [facility] is testing him for C.Diff due to diarrhea and the daughter reported that
the patient passed very foul smelling gas while here, but has not defecated since his arrival.
Work-up in the ED did not reveal urinary retention as bladder scan with only 140cc, but did reveal JACQUELIN.�
Hospitalist group was asked to evaluate the patient for admission to the hospital
A/P:
# Hyponatremia and JACQUELIN on CKD Stage III due to volume depletion in setting of poor oral intake and diarrhea
Continue IVFs
Monitor bladder scans
urine culture no significant growth
# Sepsis POA due to C diff colitis
# Diarrhea likely due to C diff colitis
Added probiotics
C diff antigen positive, toxin negative- will assume active C diff colitis with active diarrhea. Cont PO vancomycin
Norovirus negative
Follow Stool Cx
# Hypotension
Continue midodrine as prior to admission
Cont IVF as above
# Hypothyroidism
Continue Synthroid
# Cognitive Impairment
Previous notes indicate possibility of NPH - Follow-up with Neurology as outpatient
# Ambulatory Dysfunction
PT/OT recc SNF
# Rheumatoid Arthritis
Continue hydroxychloroquine
DVT proph: SC Heparin
Code Status: Full Code
DW at bedside
Anticipated Discharge: 24 - 48 hours
Subjective/Interval History
-
Date of Service: November 05, 2023
Objective Data
-
Labs:
Laboratory Results
11/05/23
04:52
WBC 12.4 H
Hgb 10.0 L
Hct 29.9 L
Plt Count 173
Sodium 133 L
Potassium 3.8
Chloride 111 H
Carbon Dioxide 16 L
BUN 33 H
Creatinine 1.8 H
Glucose 85
Calcium 7.4 L
Vital Signs:
Vital Signs
Temp Pulse Resp BP Pulse Ox
36.6 C 71 16 99/46 94
11/05/23 11:54 11/05/23 11:54 11/05/23 11:54 11/05/23 11:54 11/05/23 11:54
I&O
11/04/23 11/05/23 11/06/23
06:59 06:59 06:59
Intake Total 1080 / 1080 2059
Output Total 50 / 50
Balance 1080 / 1080 2009
Review of Systems
-
Unable to obtain full review of systems at this time due to: Dementia
Physical Exam
-
General: Well Developed, Well Nourished, No Apparent Distress, Comfortable, Conversant and Appears Chronically Ill
HEENT: Normocephalic, Nose Appears Normal and Ears Appear Normal
Respiratory: Clear to Auscultation and Non Labored Respirations; Negative Accessory Resp Muscle Use
Cardiac: Regular Rhythm and S1/S2
GI: Soft and Nontender
Neuro: Awake
Psych: Calm and Other (cognitive impairment, slow to respond to questions )
Data Reviewed
-
Labs: Labs Reviewed by me
--- NOTE | 2023-11-05 12:56 | CM ---
Reviewed the chart notes and spoke with the patient's daughter via telephone. Patient's daughter confirmed plan is back to [facility] when medically stable. CM continues to be available to patient/family and is monitoring medical plan for
needs at discharge.
Plan: Discharge to [facility] when medically stable. Precert will be required.
[2023-11-05] MEDS: REMERON 7.5 MG PO (17:01)
[2023-11-06] MEDS: NSS 1000 IV ×3 (02:58→22:16)
[2023-11-06 03:13] VITALS: BP 113/45
[2023-11-06 05:54] VITALS: BMI 23.6
[2023-11-06] MEDS: FIRVANQ 125 MG PO ×3 (06:07→17:05)
[2023-11-06] MEDS: SYNTHROID 50 MCG PO (06:07)
[2023-11-06 07:30] VITALS: BP 94/38
[2023-11-06 08:19] LABS: Hematocrit 30.3 % (39.0-52.0); Hemoglobin 10.1 g/dL (13.0-18.0); Mean Corp Hgb Conc. 33.3 g/dL (33.0-37.0); Mean Corpuscular Hgb 32.1 pg (27.0-31.0); Mean Corpuscular Volume 96.2 fL (80.0-94.0); Mean Platelet Volume 10.1 fL (7.4-10.4); Platelet Count 166 10^3/uL (130-400); Red Blood Cell Count 3.15 10^6/uL (4.70-6.10); Red Cell Dist. Width 14.3 % (11.5-14.5); White Blood Cell Count 8.2 10^3/uL (4.8-10.8)
[2023-11-06 09:01] LABS: Blood Urea Nitrogen 25 mg/dl (9-20); Calcium 7.4 mg/dl (8.4-10.2); Carbon Dioxide 17 mmol/L (22-30); Chloride 117 mmol/L (98-107); Estimated Creatinine Clearance 38 ml/min; Glucose 99 mg/dl (70-99); Potassium 3.7 mmol/L (3.5-5.1); Sodium 135 mmol/L (135-145); eGFR 44.78
--- NOTE | 2023-11-06 09:45 | W.PN.HOSP.TC ---
Today's Communication/Plan
-
diarrhea is better, cont to monitor
cont IVF
Assessment / Plan
Assessment / Plan
87yo M with PMH of HTN, CKD-III, hypothyroidism, gout, RA on hydroxychloroquine, recent acute cholecystitis s/p laparoscopic cholecystectomy on 10/14/2023, presented from [facility] for inability to urinate.
Pt's stated that he has had diarrhea for the past several days and that the patient has been nauseous and not eating x 2 days. The daughter also noted that [facility] is testing him for C.Diff due to diarrhea and the daughter reported that
the patient passed very foul smelling gas while here, but has not defecated since his arrival.
Work-up in the ED did not reveal urinary retention as bladder scan with only 140cc, but did reveal JACQUELIN.�
Hospitalist group was asked to evaluate the patient for admission to the hospital
A/P:
# Hyponatremia and JACQUELIN on CKD Stage III due to volume depletion in setting of poor oral intake and diarrhea
Hyponatremia and JACQUELIN component have resolved
Continue IVFs
Monitor bladder scans
urine culture no significant growth
# Sepsis POA due to C diff colitis
# Diarrhea due to C diff colitis
Added probiotics
C diff antigen positive, toxin negative- will assume active C diff colitis with active diarrhea. Cont PO vancomycin
Norovirus negative
Follow Stool Cx
# Hypotension
Continue midodrine as prior to admission
Cont IVF as above
# Hypothyroidism
Continue Synthroid
# Cognitive Impairment
Previous notes indicate possibility of NPH - Follow-up with Neurology as outpatient
# Ambulatory Dysfunction
PT/OT recc SNF
# Rheumatoid Arthritis
Continue hydroxychloroquine
DVT proph: SC Heparin
Code Status: Full Code
PT OT recc SNF
DW RN
updated daughter on the phone
Anticipated Discharge: 24 - 48 hours
Subjective/Interval History
-
Date of Service: November 06, 2023
Objective Data
-
Labs:
Laboratory Results
11/06/23
08:01
WBC 8.2
Hgb 10.1 L
Hct 30.3 L
Plt Count 166
Sodium 135
Potassium 3.7
Chloride 117 H
Carbon Dioxide 17 L
BUN 25 H
Creatinine 1.5 H
Glucose 99
Calcium 7.4 L
Vital Signs:
Vital Signs
Temp Pulse Resp BP Pulse Ox
36.9 C 66 20 94/38 96
11/06/23 07:30 11/06/23 07:30 11/06/23 07:30 11/06/23 07:30 11/06/23 07:30
I&O
11/05/23 11/06/23 11/07/23
06:59 06:59 06:59
Intake Total 2059 3100 / 3100
Output Total 50 / 50
Balance 2009 3100 / 3100
Review of Systems
-
Unable to obtain full review of systems at this time due to: Dementia
Physical Exam
-
General: Well Developed, Well Nourished, No Apparent Distress, Comfortable, Conversant and Appears Chronically Ill
HEENT: Normocephalic, Nose Appears Normal and Ears Appear Normal
Respiratory: Clear to Auscultation and Non Labored Respirations; Negative Accessory Resp Muscle Use
Cardiac: Regular Rhythm and S1/S2
GI: Soft and Nontender
Neuro: Awake
Psych: Calm and Other (cognitive impairment, slow to respond to questions )
Data Reviewed
-
Labs: Labs Reviewed by me
[2023-11-06] MEDS: ProAmatine 2.5 MG PO ×3 (09:48→22:25)
[2023-11-06] MEDS: ZYLOPRIM 300 MG PO (09:49)
[2023-11-06] MEDS: FLORASTOR 250 MG PO ×2 (09:49→19:56)
[2023-11-06] MEDS: PLAQUENIL 200 MG PO ×2 (09:49→19:57)
[2023-11-06] MEDS: HEPARIN 5000 UNITS SC ×2 (09:50→17:15)
[2023-11-06 11:15] VITALS: BP 93/45
--- NOTE | 2023-11-06 11:49 | PTOTSP ---
ST Initial Dysphagia Evaluation
Functional oral and suspected mild pharyngeal v. esophageal dysphagia; delayed cough observed following liquid trials.
Pt received awake/alert at the bedside. HOB raised upright for PO trials of puree, regular solids and thin liquids. Demo grossly functional mastication of regular solids. Thin liquids by straw sip swallow appears prompt. There was delayed cough x2
observed. Cough was dry. No other overt s/sx of aspiration observed. Took his meds whole/single in apple sauce without difficulty.
Recommend
1. Continue Regular solids / Thin liquids
2. Maintain aspiration precautions and meal setup assist
3. Small bites and small/single sips
4. Meds whole/single in apple sauce
5. PLATER HOT DIP following; monitor diet tolerance, strategy training/education as indicated
[2023-11-06 15:30] VITALS: BP 113/51
--- NOTE | 2023-11-06 16:02 | CM ---
IMM signed and placed on the chart.
[2023-11-06 19:37] VITALS: BP 129/56
[2023-11-06] MEDS: REMERON 7.5 MG PO (19:56)
[2023-11-06 23:22] VITALS: BP 113/60
[2023-11-07] VITALS (7 sets, daily range): BP systolic 95–129; BP diastolic 42–62; BMI 23.8
[2023-11-07] MEDS: FIRVANQ 125 MG PO ×4 (00:32→17:09)
[2023-11-07] MEDS: HEPARIN 5000 UNITS SC ×3 (00:32→15:41)
[2023-11-07] MEDS: SYNTHROID 50 MCG PO (06:02)
[2023-11-07] MEDS: TYLENOL 650 MG PO ×3 (06:05→20:20)
[2023-11-07 06:07] LABS: Hematocrit 34.5 % (39.0-52.0); Hemoglobin 11.1 g/dL (13.0-18.0); Mean Corp Hgb Conc. 32.2 g/dL (33.0-37.0); Mean Corpuscular Hgb 31.7 pg (27.0-31.0); Mean Corpuscular Volume 98.6 fL (80.0-94.0); Mean Platelet Volume 10.1 fL (7.4-10.4); Platelet Count 177 10^3/uL (130-400); White Blood Cell Count 8.9 10^3/uL (4.8-10.8)
[2023-11-07 06:38] LABS: Blood Urea Nitrogen 21 mg/dl (9-20); Calcium 8.2 mg/dl (8.4-10.2); Carbon Dioxide 20 mmol/L (22-30); Chloride 112 mmol/L (98-107); Estimated Creatinine Clearance 41 ml/min; Glucose 109 mg/dl (70-99); Potassium 3.8 mmol/L (3.5-5.1); Sodium 139 mmol/L (135-145); eGFR 48.65
--- NOTE | 2023-11-07 10:04 | W.PN.HOSP.TC ---
Today's Communication/Plan
-
see A/P
Assessment / Plan
Assessment / Plan
87yo M with PMH of HTN, CKD-III, hypothyroidism, gout, RA on hydroxychloroquine, recent acute cholecystitis s/p laparoscopic cholecystectomy on 10/14/2023, presented from [facility] for inability to urinate.
Pt's stated that he has had diarrhea for the past several days and that the patient has been nauseous and not eating x 2 days. The daughter also noted that [facility] is testing him for C.Diff due to diarrhea and the daughter reported that
the patient passed very foul smelling gas while here, but has not defecated since his arrival.
Work-up in the ED did not reveal urinary retention as bladder scan with only 140cc, but did reveal JACQUELIN.�
Hospitalist group was asked to evaluate the patient for admission to the hospital
A/P:
# Hyponatremia and JACQUELIN on CKD Stage III due to volume depletion in setting of poor oral intake and diarrhea
Hyponatremia and JACQUELIN component have resolved
observe off further IVF
Monitor bladder scans
urine culture no significant growth
# Sepsis POA due to C diff colitis
# Diarrhea due to C diff colitis
Added probiotics
C diff antigen positive, toxin negative- will assume active C diff colitis with active diarrhea. Cont PO vancomycin
Norovirus negative
Follow Stool Cx so far negative
# Hypotension
Continue midodrine as prior to admission
Cont IVF as above
# Hypothyroidism
Continue Synthroid
# Cognitive Impairment
Previous notes indicate possibility of NPH - Follow-up with Neurology as outpatient
# Ambulatory Dysfunction
PT/OT recc SNF
# Rheumatoid Arthritis
Continue hydroxychloroquine
DVT proph: SC Heparin
Code Status: Full Code
PT OT recc SNF
DW CM
updated daughter on the phone
Anticipated Discharge: Within 24 hours
Subjective/Interval History
-
Date of Service: November 07, 2023
Objective Data
-
Labs:
Laboratory Results
11/07/23
05:42
WBC 8.9
Hgb 11.1 L
Hct 34.5 L
Plt Count 177
Sodium 139
Potassium 3.8
Chloride 112 H
Carbon Dioxide 20 L
BUN 21 H
Creatinine 1.4 H
Glucose 109 H
Calcium 8.2 L
Vital Signs:
Vital Signs
Temp Pulse Resp BP Pulse Ox
36.6 C 68 16 116/56 98
11/07/23 07:50 11/07/23 07:50 11/07/23 07:50 11/07/23 07:50 11/07/23 07:50
I&O
11/06/23 11/07/23 11/08/23
06:59 06:59 06:59
Intake Total 3100 / 3100 1949
Balance 3100 / 3100 1949
Review of Systems
-
Unable to obtain full review of systems at this time due to: Dementia
Physical Exam
-
General: Well Developed, Well Nourished, No Apparent Distress, Comfortable, Conversant and Appears Chronically Ill
HEENT: Normocephalic, Nose Appears Normal and Ears Appear Normal
Respiratory: Clear to Auscultation and Non Labored Respirations; Negative Accessory Resp Muscle Use
Cardiac: Regular Rhythm and S1/S2
GI: Soft and Nontender
Neuro: Awake
Psych: Calm and Other (cognitive impairment, slow to respond to questions )
Data Reviewed
-
Labs: Labs Reviewed by me
[2023-11-07] MEDS: ProAmatine 2.5 MG PO ×3 (10:44→22:25)
[2023-11-07] MEDS: ZYLOPRIM 300 MG PO (10:45)
[2023-11-07] MEDS: FLORASTOR 250 MG PO ×2 (10:45→20:20)
[2023-11-07] MEDS: PLAQUENIL 200 MG PO ×2 (10:45→20:21)
--- NOTE | 2023-11-07 18:00 | PTCARENOTE ---
A moderate heavy assist x2 to have pt get to edge of bed and sit up. Instructed pt to push off the bed and grab walker and piviot into chair. Pt sat for est 20-25min until he c/o neck pain. Pt having difficulty hold his head up. States that his
neck is sore. Tyenol given earlier for his c/o neck pain. Assisted pt back into bed. Pt slow to move and difficult to coordinate movements. Very heavy. He is not able to hold all his wgt up. Will cont to montior.
[2023-11-07] MEDS: REMERON 7.5 MG PO (20:20)
[2023-11-08] MEDS: HEPARIN 5000 UNITS SC ×3 (01:00→16:54)
[2023-11-08] MEDS: FIRVANQ 125 MG PO ×3 (01:00→16:55)
[2023-11-08 03:06] VITALS: BP 124/50
[2023-11-08 06:00] VITALS: BMI 24.2
[2023-11-08 06:04] LABS: Hematocrit 33.6 % (39.0-52.0); Hemoglobin 10.8 g/dL (13.0-18.0); Mean Corp Hgb Conc. 32.1 g/dL (33.0-37.0); Mean Corpuscular Hgb 31.2 pg (27.0-31.0); Mean Corpuscular Volume 97.1 fL (80.0-94.0); Mean Platelet Volume 10.4 fL (7.4-10.4); Platelet Count 186 10^3/uL (130-400); Red Blood Cell Count 3.46 10^6/uL (4.70-6.10); Red Cell Dist. Width 14.2 % (11.5-14.5); White Blood Cell Count 9.7 10^3/uL (4.8-10.8)
[2023-11-08] MEDS: SYNTHROID 50 MCG PO (06:30)
[2023-11-08 06:32] LABS: Blood Urea Nitrogen 18 mg/dl (9-20); Calcium 8.1 mg/dl (8.4-10.2); Carbon Dioxide 21 mmol/L (22-30); Chloride 114 mmol/L (98-107); Estimated Creatinine Clearance 41 ml/min; Glucose 108 mg/dl (70-99); Potassium 3.8 mmol/L (3.5-5.1); Sodium 138 mmol/L (135-145); eGFR 48.65
[2023-11-08 07:20] VITALS: BP 154/77
[2023-11-08] MEDS: ZYLOPRIM 300 MG PO (09:30)
[2023-11-08] MEDS: ProAmatine PO ×2 (09:31→16:47)
[2023-11-08] MEDS: PLAQUENIL 200 MG PO (09:31)
[2023-11-08] MEDS: FLORASTOR 250 MG PO (09:31)
--- NOTE | 2023-11-08 09:41 | W.PN.HOSP.TC ---
Addendum entered and electronically signed by Meghan Castano MD 11/08/23 13:34:
Total DC time 35 minutes
Original Note:
Today's Communication/Plan
-
for SNF
Assessment / Plan
Assessment / Plan
87yo M with PMH of HTN, CKD-III, hypothyroidism, gout, RA on hydroxychloroquine, recent acute cholecystitis s/p laparoscopic cholecystectomy on 10/14/2023, presented from [facility] for inability to urinate.
Pt's stated that he has had diarrhea for the past several days and that the patient has been nauseous and not eating x 2 days. The daughter also noted that [facility] is testing him for C.Diff due to diarrhea and the daughter reported that
the patient passed very foul smelling gas while here, but has not defecated since his arrival.
Work-up in the ED did not reveal urinary retention as bladder scan with only 140cc, but did reveal JACQUELIN.�
Hospitalist group was asked to evaluate the patient for admission to the hospital
A/P:
# Hyponatremia and JACQUELIN on CKD Stage III due to volume depletion in setting of poor oral intake and diarrhea
Hyponatremia and JACQUELIN component have resolved
observe off further IVF
Monitor bladder scans
urine culture no significant growth
# Sepsis POA due to C diff colitis
# Diarrhea due to C diff colitis
Added probiotics
C diff antigen positive, toxin negative- will assume active C diff colitis with active diarrhea. Cont PO vancomycin total 10 days
Norovirus negative, stool Cx negative
diarrhea has resolved per RN
# Hypotension, resolved
Continue midodrine as prior to admission with holding parameter
# Hypothyroidism
Continue Synthroid
# Cognitive Impairment
Previous notes indicate possibility of NPH - Follow-up with Neurology as outpatient
# Ambulatory Dysfunction
PT/OT recc SNF
# Rheumatoid Arthritis
Continue hydroxychloroquine
DVT proph: SC Heparin
Code Status: Full Code
PT OT recc SNF
DW CM
updated daughter on the phone
Anticipated Discharge: Today
Subjective/Interval History
-
Date of Service: November 08, 2023
Objective Data
-
Labs:
Laboratory Results
11/08/23
05:13
WBC 9.7
Hgb 10.8 L
Hct 33.6 L
Plt Count 186
Sodium 138
Potassium 3.8
Chloride 114 H
Carbon Dioxide 21 L
BUN 18
Creatinine 1.4 H
Glucose 108 H
Calcium 8.1 L
Vital Signs:
Vital Signs
Temp Pulse Resp BP Pulse Ox
36.3 C 80 18 154/77 96
11/08/23 07:20 11/08/23 09:31 11/08/23 07:20 11/08/23 09:31 11/08/23 07:20
I&O
11/07/23 11/08/23 11/09/23
06:59 06:59 06:59
Intake Total 1949
Balance 1949
Review of Systems
-
Unable to obtain full review of systems at this time due to: Dementia
Physical Exam
-
General: Well Developed, Well Nourished, No Apparent Distress, Comfortable, Conversant and Appears Chronically Ill
HEENT: Normocephalic, Nose Appears Normal and Ears Appear Normal
Respiratory: Clear to Auscultation and Non Labored Respirations; Negative Accessory Resp Muscle Use
Cardiac: Regular Rhythm and S1/S2
GI: Soft and Nontender
Neuro: Awake
Psych: Calm and Other (cognitive impairment, slow to respond to questions )
Data Reviewed
-
Labs: Labs Reviewed by me
--- NOTE | 2023-11-08 09:55 | CM ---
Addendum entered by Serena Fung RN 11/08/23 16:03:
Auth Reference #[id number]
Addendum entered by Serena Fung RN 11/08/23 15:59:
Patient approved for three days at [facility]
10/08-10/10; NRD 10/11 with Pushpa Wilburn; fax clinicals: ([phone])
Call report to:
Fax report to: [phone]
Medical necessity and transport form on chart.
Addendum entered by Serena Fung RN 11/08/23 11:42:
[facility] accepted patient.
[facility]
Dr. Gurrola
Auth started in [employer] and clinicals faxed to ([phone])
Pended auth # [id number]
Original Note:
Reviewed the chart notes. Referral sent to [facility] for review. Precert is required. PT evaluation and OT need to be completed for referral.
Plan: Discharge back to [facility] when precert obtained.
[2023-11-08 10:47] VITALS: BP 128/58; BP 159/70; PULSE 80; O2SAT 98
[2023-11-08 10:53] VITALS: BP 128/58; BP 159/70; PULSE 82
[2023-11-08 11:28] VITALS: BP 157/91
--- NOTE | 2023-11-08 13:27 | W.DCSUMMARY ---
Discharge Summary
Discharge Data
Date of Admission: 11/03/23
Date of Discharge: 11/08/23
-
Pending Results: No
Hospital Course
Principal Diagnosis:
Hyponatremia and acute kidney injury (JACQUELIN) due to volume depletion in setting of poor oral intake and diarrhea; hyponatremia and JACQUELIN have resolved
Sepsis on admission with diarrhea due to C. difficile colitis
Chronic Diagnoses:�
Chronic kidney disease Stage III
Hypothyroidism on Synthroid
Cognitive Impairment
Ambulatory Dysfunction
Rheumatoid Arthritis, on Hydroxychloroquine
Recent acute cholecystitis status post laparoscopic cholecystectomy on 10/14/2023
Consultations:�
None
Procedures:�
None
Clinical course:�
This is a 87-year-old male with past medical history as stated above, presented from [facility] with weakness and foul-smelling watery diarrhea.
Problem 1:
Hyponatremia and JACQUELIN on CKD Stage III due to volume depletion in setting of poor oral intake and diarrhea.
Hyponatremia and JACQUELIN component have resolved.
His stool was checked, noted C diff antigen positive, toxin negative. Given his active foul-smelling watery diarrhea, it was assumed that the patient had active C. difficile colitis.
He was started with oral vancomycin and had received 4 days during his hospital stay, he can continue with 6 more days of oral antibiotic outpatient to complete a total 10 day course.
His diarrhea has resolved.
He can also continue with probiotic going forward.
His Norovirus and stool cultures were negative.
As for the rest of his medical problems, they were stable during his hospital stay.
Discharge Plan
-
Patient Disposition: Custodial/SNF
Discharge Diagnosis/Procedures: Diarrhea due to C diff colitis
Condition: Fair
Diet: As tolerated
Activity: As tolerated
Driving Restrictions: No driving
Activity Restrictions/Additional Instructions:
Continue oral vancomycin for 6 more days
Referrals:
Eron Gurrola MD [Family Provider] - in less than 1 week
Prescriptions:
New
vancomycin 125 mg capsule
125 mg PO QID 6 Days Qty: 24 0RF
Probiotic 3 billion cell capsule
3,000 mmu cells PO BID Qty: 20 0RF
Continued
midodrine 5 mg Tablet
5 mg PO Q8H PRN (Reason: hypotensive episoide)
Rx Instructions:
hold for SBP <90
levothyroxine [Synthroid] 50 mcg Tablet
50 mcg PO DAILY AT 0700
allopurinol 300 mg Tablet
300 mg PO DAILY
hydroxychloroquine [Plaquenil] 200 mg Tablet
200 mg PO BID
cholecalciferol (vitamin D3) [Vitamin D3] 25 mcg (1,000 unit) Tablet
25 mcg PO DAILY
reutgkoxvlbr-obziciwd-phqble Tablet
1 tab PO DAILY
acetaminophen 325 mg Tablet
650 mg PO Q4H PRN (Reason: mild pain/temp>100F)
magnesium hydroxide [Milk of Magnesia] 400 mg/5 mL Suspension
30 ml PO DAILY PRN (Reason: if no bm x 3 days)
bisacodyl [Dulcolax (bisacodyl)] 10 mg Suppository
10 mg UT DAILY PRN (Reason: if mom is ineffective after 24hrs)
Fleet Enema 19-7 gram/118 mL Enema
118 ml UT DAILY PRN (Reason: if dulcolax is ineffective after 24hrs)
midodrine 2.5 mg Tablet
2.5 mg PO TID
Rx Instructions:
hold for SBP 130 or greater
mirtazapine [Remeron] 15 mg Tablet
7.5 mg PO QPM
Discharge Orders:
Discharge Patient (As Directed); Ordered 11/08/23
Ordered By: Meghan Castano
[2023-11-08] MEDS: FIRVANQ PO (14:39)
[2023-11-08 15:38] VITALS: BP 151/69
--- NOTE | 2023-11-08 18:13 | PTCARENOTE ---
Report given to Jennifer waldrop [facility] ([phone]). Ambulance scheduled for apple picker between 7-7:30. Family at bedside, updated and discussed discharge instructions.
== END 2023-11-08 19:51 | DRG 872 ==
LOC: 2 NORTH 23:35
PROVIDERS: Physician Assistant Medical; Registered Nurse; ADMITTING PHYSICIAN Hospitalist; ATTENDING PHYSICIAN Internal Medicine; EMERGENCY PHYSICIAN Emergency Medicine; FAMILY PHYSICIAN Internal Medicine
DX: A41.4 Sepsis due to anaerobes (principal); E87.1 Hypo-osmolality and hyponatremia; N17.9 Acute kidney failure, unspecified; A04.72 Enterocolitis due to Clostridium difficile, not specified as recurrent; E03.9 Hypothyroidism, unspecified; M10.9 Gout, unspecified; M06.9 Rheumatoid arthritis, unspecified; I12.9 Hypertensive chronic kidney disease with stage 1 through stage 4 chronic kidney disease, or unspecified chronic kidney disease; N18.30 Chronic kidney disease, stage 3 unspecified; G31.84 Mild cognitive impairment of uncertain or unknown etiology; N40.0 Benign prostatic hyperplasia without lower urinary tract symptoms; E86.0 Dehydration; R26.2 Difficulty in walking, not elsewhere classified; D72.829 Elevated white blood cell count, unspecified; E86.9 Volume depletion, unspecified; I95.9 Hypotension, unspecified; Z79.890 Hormone replacement therapy; Z90.49 Acquired absence of other specified parts of digestive tract
CPT/HCPCS: 51798; 80048; 80053; 81003; 81015; 83735; 84443; 85025; 85027; 87040; 87045; 87046; 87070; 87077; 87086; 87324; 87427; 87449; 87798; 92526; 92610; 96360; 97163; 97167; 97530; 97535; 99284

== ENCOUNTER 2023-11-24 22:11 | Inpatient (IN) | payer OTHER, SELFPAY ==
[2023-11-24 18:50] VITALS: BP 107/65
[2023-11-24 18:57] LABS: % Basophils 0.5 % (0-2); % Immature Granulocytes 1.3 % (0-0.5); % Lymphocytes 4.6 % (20.5-51.1); % Monocytes 10.4 % (1.7-9.3); % Neutrophils 83.2 % (42.2-75.2); Absolute Basophils 0.1 10^3/uL (0-0.2); Absolute Immature Granulocytes 0.3 10^3/uL (0-0.05); Absolute Monocytes 2.2 10^3/uL (0.1-0.6); Absolute Neutrophils 17.8 10^3/uL (1.4-6.5); Hematocrit 40.5 % (39.0-52.0); Hemoglobin 13.2 g/dL (13.0-18.0); Mean Corp Hgb Conc. 32.6 g/dL (33.0-37.0); Mean Corpuscular Hgb 31.4 pg (27.0-31.0); Mean Corpuscular Volume 96.4 fL (80.0-94.0); Mean Platelet Volume 10.3 fL (7.4-10.4); Nucleated Red Blood Cells % 0 % (-); Platelet Count 345 10^3/uL (130-400); Red Cell Dist. Width 14.6 % (11.5-14.5); White Blood Cell Count 21.4 10^3/uL (4.8-10.8)
[2023-11-24] MEDS: NSS 1000 IV ×2 (18:58→19:46)
--- NOTE | 2023-11-24 19:05 | ED.GENMED ---
History of Present Illness
General
Chief Complaint: Change in Mental Status
Source: patient and other (Nursing staff)
Exam Limitations: none
Time Seen by Provider: 11/24/23 18:44
Travel History
Have you had any contact with someone who has COVID-19?: No
Do you have any symptoms of coronavirus? Fever > 100 degrees, chills, cough, shortness of breath, sore throat, loss of taste or smell, muscle aches, or headache?: No
History of Present Illness
History of Present Illness:
This is a 87 year old male that comes in by ambulance with c/o vomiting and diarrhea. State that this just started today. States that he has some left lower abd discomfort. Denies any fever, chills, chest pain, SOB, headache, dizziness, urinary
burning.
Past History
Past History
ED Past Medical History: HTN, Hypothyroidism, Other (Gout, mild cognitive impairment, rheumatoid arthritis, rosacea, BPH) and Other (BPH)
ED Past Surgical History: Cholecystectomy, Orthopedic (Left knee surgery) and Other (Cataracts)
Social History
Tobacco: Non-smoker
Alcohol: None
Personal:
Living: fpc ([facility])
Family History
Family History: Other (reviewed and non-contributory)
Review of Systems
Review of Systems
All Other Systems: ROS reviewed and negative except as documented in HPI and ROS
Constitutional: Reports no symptoms; Denies fever or chills
EENT: Reports no symptoms
Respiratory: Reports no symptoms; Denies cough or trouble breathing
Cardiac: Reports no symptoms; Denies chest pain
ABD/GI: Reports abdominal pain (Left sided abd discomfort)
: Reports no symptoms; Denies dysuria, frequency or urgency
Musculoskeletal: Reports no symptoms
Skin: Reports no symptoms
Neurological: Reports no symptoms; Denies dizzy or headache
Psychiatric: Reports no symptoms
Phy Exam
General Physical Exam
General Presentation: no apparent distress
General age: appears stated age
General Skin: warm and dry
General Habitus: debilitated and elderly
General Mental: alert
General Hydration: dry mucous membranes
ENT Exam
ENT Exam: TM's normal, pharynx normal and neck supple
Eye Exam
Eye Exam: EOMI
Cardiovascular Exam
Cardiovascular Exam: regular rate/rhythm, no edema and normal peripheral pulses
Pulmonary Exam
Pulmonary Exam: lungs clear, no respiratory distress, no rales, chest non tender, no crackles, no rhonchi, no wheezing and no cough
Gastrointestinal Exam
Gastrointestinal Exam: normal bowel sounds, soft, no organomegaly, no pulsatile mass, non distended and tender (LLQ tenderness with palpation)
Musculoskeletal Exam
Musculoskeletal Exam: full ROM and no edema
Skin Exam
Skin Exam: normal color, warm/dry, no rash and no petechia
Psychiatric Exam
Psychiatric Exam: normal mood/affect
Course
Orders/Labs/Results
Orders:
Orders
11/24/23 18:41
EKG [Electrocardiogram (*1)] Urgent
Reason for Study: Tachycardia
11/24/23 18:42
EKG- Treatment ONCE
11/24/23 18:44
COVID-19 Antigen Urgent
Source: Nasal Swab
Complete Blood Count/With Diff Urgent
Comprehensive Metabolic Panel Urgent
Influenza A+B Rapid Molecular Urgent
GUERLINE Source: Nasal Swab
Specimen Description:
11/24/23 18:45
Lactic Acid Urgent
Blood Culture Q30M
GUERLINE Source: Blood/Venous
Specimen Description:
Comment: FROM 2 SEPARATE SITES
11/24/23 18:58
0.9% Sodium Chloride 1000 ml [Nss] 1,000 ml IV BOLUS
11/24/23 19:03
STOOL [C difficile Antigen & Toxins] Urgent
GUERLINE Source: Feces/Stool
Specimen Description:
Stool Culture Urgent
GUERLINE Source: Feces/Stool
Specimen Description:
Stool For WBC Urgent
GUERLINE Source: Feces/Stool
Specimen Description:
11/24/23 19:04
CT Abd/pel Without Iv Or Oral Urgent
Comment: modified due to renal function
Reason For Exam: Left sided abd pain
CT Head W/o Iv Contrast Urgent
Comment:
Reason For Exam: Change in mental status
Urinalysis Reflex To Culture Urgent
Ondansetron Injectable [Zofran] 4 mg IV NOW STA
CR Chest - 2 Views Urgent
Comment:
Reason For Exam: Fever
11/24/23 19:28
0.9% Sodium Chloride 1000 ml [Nss] 1,000 ml IV BOLUS
11/24/23 19:47
Troponin I Urgent
Blood Culture Q30M
GUERLINE Source: Blood/Venous
Specimen Description:
Comment: FROM 2 SEPARATE SITES
Abnormal Lab Results
11/24/23 11/24/23
18:44 18:45
WBC 21.4 H 10^3/uL
(4.8-10.8)
RBC 4.20 L 10^6/uL
(4.70-6.10)
MCV 96.4 H fL
(80.0-94.0)
MCH 31.4 H pg
(27.0-31.0)
MCHC 32.6 L g/dL
(33.0-37.0)
RDW 14.6 H %
(11.5-14.5)
Abs Immat Gran (auto) 0.3 H 10^3/uL
(0-0.05)
Absolute Neuts (auto) 17.8 H 10^3/uL
(1.4-6.5)
Absolute Lymphs (auto) 1.0 L 10^3/uL
(1.2-3.4)
Absolute Monos (auto) 2.2 H 10^3/uL
(0.1-0.6)
Immature Gran % 1.3 H %
(0-0.5)
Neutrophils % 83.2 H %
(42.2-75.2)
Lymphocytes % 4.6 L %
(20.5-51.1)
Monocytes % 10.4 H %
(1.7-9.3)
Sodium 134 L mmol/L
(135-145)
BUN 37 H mg/dl
(9-20)
Creatinine 2.4 H mg/dL
(0.7-1.3)
Glucose 174 H mg/dl
(70-99)
Lactic Acid 4.4 H* mmol/L
(0.7-2.0)
Total Protein 5.9 L g/dl
(6.3-8.2)
Albumin 3.1 L g/dl
(3.5-5.0)
11/24/23 18:44
11/24/23 18:44
Leukocytosis, Anemic, Dehydration, Chronic renal insufficiency, Glucose nonfasting. Total protein low. Albumin slightly low. Troponin <0.012, Lactic acid elevated to 4.4
Vital Signs
Initial and Last Documented VS:
Initial Vital Signs
Pulse Resp Pulse Ox
113 18 94
11/24/23 18:39 11/24/23 18:39 11/24/23 18:39
Last Documented Vital Signs
Temp Pulse Resp BP Pulse Ox
100.1 F 101 19 109/47 94
11/24/23 18:57 11/24/23 20:30 11/24/23 20:30 11/24/23 20:20 11/24/23 20:30
*Radiology
Radiology exam reviewed: radiology read reviewed (hEAD-No acute intracranial abnormality. Chest X-ray-No acute cardiopulmonary process CT abd/pelvis- Moderate to severe pancolitis with diffuse wall thickening and inflammatory fat stranding along
the entire course of the colon)
*Pulse Oximetry
Patient hypoxic: no
*EKG
Interpreted by ED Provider?: Yes
Heart Rate: 110
Rate: tachycardiac
Rhythm: sinus
[place]: left axis deviation
Interval: normal interval
QRS Pattern: right bundle branch block
Ischemia: no ischemia
*Motor [employer]ian Interpretation
Rate: tachycardiac
Heart Rate: 106
Rhythm: sinus tachycardia
*Critical Care Note
Total Time (30-74mins, 75-104mins- exclusive of procedures): Not Applicable
ED Attending Note
-
Portions of this chart may have been created with voice recognition software.� Occasional wrong word or��sound alike� substitutions may have occurred due to the inherent limitations of voice recognition software.
Discharge Plan
Departure
Patient Disposition: Admit
Date of Disposition: 11/24/23
Time of Disposition: 20:47
Admit to: Telemetry
Presentation/result/management discussed w/ accepting MD/DO: Hospitalist
Patient with high blood pressure during this ER visit?: No
Condition: Good
Covid-19: Not Applicable
Discharge Problem:
Pancolitis, Nausea, vomiting and diarrhea
Prescriptions:
No Action
midodrine 5 mg Tablet
5 mg PO Q8H PRN (Reason: hypotensive episoide)
Rx Instructions:
hold for SBP <90
levothyroxine [Synthroid] 50 mcg Tablet
50 mcg PO DAILY AT 0700
allopurinol 300 mg Tablet
300 mg PO DAILY
hydroxychloroquine [Plaquenil] 200 mg Tablet
200 mg PO BID
cholecalciferol (vitamin D3) [Vitamin D3] 25 mcg (1,000 unit) Tablet
25 mcg PO DAILY
ruahsxsyrwup-ajwnplak-ojhhkk Tablet
1 tab PO DAILY
acetaminophen 325 mg Tablet
650 mg PO Q4H PRN (Reason: mild pain/temp>100F)
magnesium hydroxide [Milk of Magnesia] 400 mg/5 mL Suspension
30 ml PO DAILY PRN (Reason: if no bm x 3 days)
bisacodyl [Dulcolax (bisacodyl)] 10 mg Suppository
10 mg GA DAILY PRN (Reason: if mom is ineffective after 24hrs)
Fleet Enema 19-7 gram/118 mL Enema
118 ml GA DAILY PRN (Reason: if dulcolax is ineffective after 24hrs)
midodrine 2.5 mg Tablet
2.5 mg PO TID
Rx Instructions:
hold for SBP 130 or greater
mirtazapine [Remeron] 15 mg Tablet
7.5 mg PO QPM
guaifenesin [Lorena-Tussin] 100 mg/5 mL Liquid
300 mg PO Q6H PRN (Reason: cough)
Probiotic 3 billion cell capsule
6,000 mmu cells PO BID
Referrals:
Eron Gurrola MD [Family Provider] -
Interventions
Interventions:
*Risk Screen - Suicide Last Done: 11/24/23 18:39
*General Assessment Last Done: 11/24/23 18:39
*Neglect/Abuse Screening Last Done: 11/24/23 18:39
ED- Fall Risk Assessment Last Done: 11/24/23 19:13
*ED COVID-19 Vaccine History Last Done: 11/24/23 18:39
ED- Pulmonary Assessment Last Done: 11/24/23 19:13
ED- Neurological Assessment Last Done: 11/24/23 19:13
ED- Cardiac Assessment Last Done: 11/24/23 19:13
[2023-11-24] MEDS: ZOFRAN 4 MG IV (19:07)
[2023-11-24 19:13] LABS: ALT (SGPT) 19 U/L (0-50); AST (SGOT) 24 U/L (17-59); Albumin 3.1 g/dl (3.5-5.0); Alkaline Phosphatase 117 U/L (38-126); Blood Urea Nitrogen 37 mg/dl (9-20); Carbon Dioxide 23 mmol/L (22-30); Chloride 100 mmol/L (98-107); Glucose 174 mg/dl (70-99); Potassium 4.6 mmol/L (3.5-5.1); Sodium 134 mmol/L (135-145); Total Bilirubin 1.1 mg/dl (0.2-1.3); Total Protein 5.9 g/dl (6.3-8.2); eGFR 25.48
[2023-11-24 19:14] LABS: Lactic Acid 4.4 mmol/L (0.7-2.0)
[2023-11-24 19:26] LABS: COVID-19 Antigen Negative (Negative)
[2023-11-24 20:20] VITALS: BP 109/47
[2023-11-24 20:20] LABS: Troponin I < 0.012 ng/ml
[2023-11-24 21:00] VITALS: BP 99/48
--- NOTE | 2023-11-24 21:36 | HPS.HSE ---
Family Physician
-
Family Physician: Eron Gurrola
Chief Complaint
-
Loose Stool / Weakness
History of Present Illness
Patient is an 87y M with PMH significant for dementia, hypotension, CKD and multiple recent hospitalizations who presents to ED complaining of N/V/D. History obtained from patient and from family at the bedside. Patient was admitted in September
2023 with acute cholecystitis and underwent lap stacy on 10/14/23. He returned to the hospital on 10/18 with fall at home and worsening weakness. Daughters note that prior to this he had been ambulating with a walker. He has since had increased
frequency of falls. Patient was briefly in a SNF / rehab following that hospital stay.
He returned to again on 11/03 with diarrhea and was treated for CDiff colitis with oral vancomycin. Family notes that his symptoms did seem to improve. He felt fairly well one week ago. His last dose of vancomycin was Wednesday, 11/14.
On Wednesday (11/22) he again started to have some loose stools. He had a BM once per hour on Wednesday morning. Patient denies any abdominal pain. He denies any fevers / chills.
He had N/V today and continued loose stools and was brought to the ED for further evaluation.
Medical History
Past Medical History
Past Medical History: Reports Other
Additional Past Medical History:
CKD Stage III
Essential Hypertension
Hypothyroidism
Cognitive Impairment
Ambulatory Dysfunction
Rheumatoid Arthritis
Gout
Past Surgical History: Reports Other
Additional Past Surgical History:
Cholecystectomy
Social History
Tobacco: Non-smoker
Alcohol: None
Drug: None
Living: Other (Patient usually resides with family, but is currently undergoing rehab at local SNF)
Family History
Family History: Not pertinent
Allergies / Home Medications
Allergies reflects when Allergies were last updated in [employer].
Home Medications with original date entered in [employer]
Allergy/Medication List:
Allergies
Allergy/AdvReac Type Severity Reaction Status Date / Time
No Known Allergies Allergy Verified 11/24/23 18:39
Home Medications
allopurinol 300 mg tablet 300 mg PO DAILY Gout 10/13/23
cholecalciferol (vitamin D3) 25 mcg (1,000 unit) tablet (Vitamin D3) 25 mcg PO DAILY Supplement 10/13/23
hydroxychloroquine 200 mg tablet (Plaquenil) 200 mg PO BID Rheumatoid arthritis 10/13/23
levothyroxine 50 mcg tablet (Synthroid) 50 mcg PO DAILY AT 0700 Thyroid 10/13/23
midodrine 5 mg tablet 5 mg PO Q8H PRN hypotensive episoide 10/13/23
jjrflyzwucim-iwywiuza-pjrfgq tablet 1 tab PO DAILY Supplement 10/18/23
acetaminophen 325 mg tablet 650 mg PO Q4H PRN mild pain/temp>100F 11/03/23
bisacodyl 10 mg rectal suppository (Dulcolax (bisacodyl)) 10 mg ME DAILY PRN if mom is ineffective after 24hrs 11/03/23
magnesium hydroxide 400 mg/5 mL oral suspension (Milk of Magnesia) 30 ml PO DAILY PRN if no bm x 3 days 11/03/23
midodrine 2.5 mg tablet 2.5 mg PO TID 11/03/23
mirtazapine 15 mg tablet (Remeron) 7.5 mg PO QPM 11/03/23
sodium phosphates 19 gram-7 gram/118 mL enema (Fleet Enema) 118 ml ME DAILY PRN if dulcolax is ineffective after 24hrs 11/03/23
guaifenesin 100 mg/5 mL oral liquid (Lorena-Tussin) 300 mg PO Q6H PRN cough 11/24/23
lactobacillus combination no.4 3 billion cell capsule (Probiotic) 6,000 mmu cells PO BID 11/24/23
Review of Systems
-
History Source: Patient and Family
A 12 point ROS was completed and negative except as noted: Yes
Constitutional: Reports Fatigue; Denies Fever or Chills
Respiratory: Denies Cough or Trouble Breathing
Cardiac: Denies Chest Pain or Palpitations
Abdomen/GI: Reports Nausea, Vomiting and Diarrhea; Denies Abdominal Pain or Bloody Stools
: Reports Incontinence; Denies Dysuria or Frequency
Musculoskeletal: Denies Edema
Neurological: Reports Weakness; Denies Dizzy or Headache
Psych: Reports Dementia; Denies Depression or Anxiety
Physical Exam
Vital Signs
Vital Signs
Temp Pulse Resp BP Pulse Ox
100.1 F 101 19 109/47 94
11/24/23 18:57 11/24/23 20:30 11/24/23 20:30 11/24/23 20:20 11/24/23 20:30
Physical Exam
General: Other (87y M in no acute distress. Mildly flat affect. )
HEENT: PERRLA and Other (Dry MM.)
Respiratory: Other (Decreased at bases - otherwise clear.)
Cardiac: S1/S2 and Regular Rhythm; No Murmur
GI: Soft, Non Distended, Normal Bowel Sounds and Other (Mildly, diffusely tender. Pos BS.)
Musculoskeletal: No Clubbing, No Cyanosis, No Edema and Other (RUE mobility limited secondary to prior fracture.)
Neuro: Awake, Alert and Other (Baseline dementia / flat affect.)
Psych: Apparent Dementia; No Agitated
Laboratory Results
-
11/24/23 18:44
11/24/23 18:44
Laboratory Results
Lactic Acid 4.4 mmol/L (0.7-2.0) H* 11/24/23 18:45
Total Bilirubin 1.1 mg/dl (0.2-1.3) 11/24/23 18:44
AST 24 U/L (17-59) 11/24/23 18:44
ALT 19 U/L (0-50) 11/24/23 18:44
Alkaline Phosphatase 117 U/L (38-126) 11/24/23 18:44
Troponin I < 0.012 ng/ml 11/24/23 19:47
Impression/Plan
-
A/P: Patient is an 87y M with PMH significant for dementia, hypothyroidism and recent hospitalizations for acute cholecystitis and CDiff colitis who returns to ED complaining of N/V/D and increased weakness.
Pancolitis
CDiff Colitis - Persistent / Recurrent
- Admit for further evaluation and treatment.
- Patient previously treated for CDiff colitis with temporary improvement in his symptoms.
- Pancolitis noted on CT, significant leukocytosis and profuse diarrhea c/w CDiff.
- Will begin treatment with Dificd for now.
- ID evaluation for additional recommendations.
- Check other stools studies, cultures, etc for completeness.
- Supportive care with IVFs, etc.
- Follow for clinical improvement.
NPH
- Gait dysfunction, incontinence and worsened dementia with radiographic findings c/w NPH.
- Patient has been seen by Neuro who recommended Neurosurgery evaluation.
- This was completed and family notes that patient is scheduled for shunt placement.
- Would follow-up as an outpatient as scheduled - after CDiff is controlled.
Chronic Hypotension
- Stable at present. Follow orthostatic signs and ensure volume replete - especially given GI losses.
- Continue midodrine (standing and PRN).
- Follow for changes in BP.
Rheumatoid Arthritis
- Stable. No current complaints of joint pains.
- Continue current medications including Plaquenil.
Hypothyroidism
- Stable. Recent TFTs were unremarkable.
- Continue current T4 supplementation.
Senile Dementia
- Stable. Monitor for any acute delirium / agitation during hospital stay.
DVT Prophylaxis: SCDs
Code Status: Full
[2023-11-24 22:45] VITALS: BP 122/68; BMI 22.5
[2023-11-24 23:22] VITALS: BP 122/68
--- NOTE | 2023-11-24 23:35 | PTCARENOTE ---
pt arrived onto 3w from the ED on a stretcher, pt arrived on r.a and medsurge. Pt was pulled over from stretcher to bed, RN and I cleaned up the pt bm and got him comfortable in bed. The pt two daughters are ate bedside, call campo is in reach will
continue to monitor.
[2023-11-25] MEDS: NSS 1000 IV ×3 (00:53→22:19)
[2023-11-25] MEDS: DIFICID 200 MG PO ×2 (00:55→08:14)
--- NOTE | 2023-11-25 01:36 | PTCARENOTE ---
Pt is only able to lay and sit in bed when it comes to orthostatic vitals
[2023-11-25 06:00] VITALS: BMI 22.5
[2023-11-25 07:00] VITALS: BP 96/63
[2023-11-25 07:04] LABS: Hematocrit 35.2 % (39.0-52.0); Hemoglobin 11.6 g/dL (13.0-18.0); Mean Corpuscular Hgb 31.5 pg (27.0-31.0); Mean Corpuscular Volume 95.7 fL (80.0-94.0); Mean Platelet Volume 10.7 fL (7.4-10.4); Platelet Count 270 10^3/uL (130-400); Red Blood Cell Count 3.68 10^6/uL (4.70-6.10); Red Cell Dist. Width 14.6 % (11.5-14.5); White Blood Cell Count 15.1 10^3/uL (4.8-10.8)
[2023-11-25 07:29] LABS: Blood Urea Nitrogen 38 mg/dl (9-20); Calcium 8.3 mg/dl (8.4-10.2); Carbon Dioxide 21 mmol/L (22-30); Chloride 107 mmol/L (98-107); Estimated Creatinine Clearance 29 ml/min; Glucose 108 mg/dl (70-99); Potassium 4.4 mmol/L (3.5-5.1); Sodium 137 mmol/L (135-145); eGFR 33.72
[2023-11-25] MEDS: PLAQUENIL 200 MG PO ×2 (08:13→22:21)
[2023-11-25] MEDS: VISBIOME 1 CAP PO ×2 (08:13→22:17)
[2023-11-25] MEDS: ZYLOPRIM 300 MG PO (08:13)
[2023-11-25] MEDS: SYNTHROID 50 MCG PO (08:13)
[2023-11-25] MEDS: ProAmatine 2.5 MG PO ×3 (08:13→17:07)
--- NOTE | 2023-11-25 08:42 | W.PN.HOSP.TC ---
Today's Communication/Plan
-
IV fluids, oral vancomycin.
Assessment / Plan
Assessment / Plan
Physical Exam
General: Acutely ill
HEENT: PERRLA and Other (Dry MM.)
Respiratory: No crackles wheezes or rhonchi.
Cardiac: S1/S2 and Regular Rhythm; No Murmur
GI: Soft, bowel sounds hyperkinetic, mild distention, generalized tenderness.
Musculoskeletal: No Clubbing, No Cyanosis, No Edema and Other (RUE mobility limited secondary to prior fracture.)
Neuro: Awake, Alert and cognitive deficits.
Psych: Apparent Dementia; No Agitated
A/P:
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
-Continue IV fluids
-Discontinue Dificid
-Started on oral vancomycin high doses 500 mg p.o. every 6 hours
-ID consult appreciated
-Seen and reviewed CT scan
-I agree with checking stool studies for other offenders
-WBC 21.4-->15.1 today
-Updated daughter over the phone today, Anne.
-Patient with severe recurrent infection at very high risk of clinical deterioration but will monitor closely.
Acute kidney injury:
-Cr 2.4-->1.9
-Cont ivf
-Avoid nephrotoxic
-Monitor renal function closely
-Monitor urine output
-Check renal US and bladder
Anemia
-Likely dilutional component
-Hb 13.2-->11.6
-Cont to monitor
Hyponatremia
-improving
NPH
�- Gait dysfunction, incontinence and worsened dementia with radiographic findings c/w NPH.
�- Patient has been seen by Neuro who recommended Neurosurgery evaluation.
�- This was completed and family notes that patient is scheduled for shunt placement.
�- Would follow-up as an outpatient as scheduled - after CDiff is controlled.
Chronic Hypotension
�- Stable at present.� Follow orthostatic signs and ensure volume replete - especially given GI losses.
�- Continue midodrine (standing and PRN).
�- Follow for changes in BP.
Rheumatoid Arthritis
�- Stable.� No current complaints of joint pains.
�- Continue current medications including Plaquenil.
Hypothyroidism
�- Stable.� Recent TFTs were unremarkable.
�- Continue current T4 supplementation.
Senile Dementia
�- Stable.� Monitor for any acute delirium / agitation during hospital stay.
DVT Prophylaxis:� SCDs
Code Status:� Full
Total time spent on today's encounter was 52 minutes which included time spent in counseling the patient/family regarding diagnosis and treatment plan as listed above, goals of care, and symptom management. Case was discussed with nursing staff,
specialists, and care coordinators/case management. All labs and imaging personally reviewed by me. Remainder the time spent in detailed review of previous records, lab data, imaging, and other medical provider documentation.
Anticipated Discharge: > 48 hours
Subjective/Interval History
-
Date of Service: November 25, 2023
Patient still having diarrhea. Generalized weakness. Afebrile
Objective Data
-
Labs:
Laboratory Results
11/25/23
06:33
WBC 15.1 H
Hgb 11.6 L
Hct 35.2 L
Plt Count 270 D
Sodium 137
Potassium 4.4
Chloride 107
Carbon Dioxide 21 L
BUN 38 H
Creatinine 1.9 H
Glucose 108 H
Calcium 8.3 L
Vital Signs:
Vital Signs
Temp Pulse Resp BP Pulse Ox
99.4 F 94 18 96/63 97
11/25/23 07:00 11/25/23 08:13 11/25/23 07:00 11/25/23 08:13 11/25/23 07:00
I&O
11/24/23 11/25/23 11/26/23
06:59 06:59 06:59
Intake Total 150 / 150
Balance 150 / 150
--- NOTE | 2023-11-25 10:06 | CON.ID ---
Consultation
-
Date/Time Consultation Requested: 11/24/2023, 2240
Date/Time Consultation Performed: 11/25/2023, 1010
Requesting Provider: Dr. James Ceja
Performing Provider: Dr. Lauren Perez
Reason for Consultation: C. diff
Chief Complaint / Past History
Chief Complaint
Weakness, diarrhea
History of Present Illness
History obtained from review of medical records as patient is poor historian due to cognitive impairment. He is a 87 year old male with hx RA on hydrochloroquine, hypothyroidism, CKD3 who has had multiple hospitalizations since Sep 2023 including
acute gallstone cholecystitis s/p lap stacy 10/14/23 and completed a course of abx. Recent admission 11/03 to 11/08/23 with diarrhea, JACQUELIN; C. diff Ag positive, toxin negative -> treated with 10 days po Vancomycin with improvement. While at rehab, he had
recurrence of diarrhea. Per record he was having bowel movements every hour. + weakness, poor appetite. +N/V. He was sent to ED 11/23. WBC 21.4, JACQUELIN on CKD, L.A. 4.4. T=100.1. CT a/p showed mod to severe pancolitis. He was started on Fidaxomicin.
Patient denies fever or chills. He is thirsty. Denies abd pain. Unable to quantify bowel movements.
Past History
Additional Past Medical History:
Cognitive impairment
HTN
hypothyroidism
gout
BPH
CKD3
RA on hydrochloroquine
Lap stacy (10/14/23)
Allergy History:
No Known Allergies Allergy (Verified 11/24/23 18:39)
Medications Reviewed: Yes
Current Antibiotics:
Fidaxomicin
Social History
Tobacco: Non-Smoker
Alcohol: None
Drug: None
Personal:
Family History
Family History: Not Pertinent
Review of Systems
Review of Systems
Unable to obtain as pt poor historian with suspected dementia.
Vital Signs
Temp Pulse Resp BP Pulse Ox
99.4 F 94 18 96/63 97
11/25/23 07:00 11/25/23 08:13 11/25/23 07:00 11/25/23 08:13 11/25/23 07:00
Physical Exam
Physical Exam
Constitutional: Acutely Ill
Eyes: No Conjunctival Hemorrhage and Sclera Anicteric
Cardiovascular: Regular Rate and S1/S2
Pulmonary: Clear
Gastrointestinal: Soft, Tender (mild diffuse tenderness), Non Distended and Decreased Bowel Sounds
Genito-Urinary: Negative CVA Tenderness
Extremities: Negative Edema
Neurological: Other (Drowsy)
Lab / Diagnostic Study Results
11/25/23 06:33
11/25/23 06:33
Abs Immat Gran (auto) 0.3 10^3/uL (0-0.05) H 11/24/23 18:44
Absolute Neuts (auto) 17.8 10^3/uL (1.4-6.5) H 11/24/23 18:44
Absolute Lymphs (auto) 1.0 10^3/uL (1.2-3.4) L 11/24/23 18:44
Absolute Monos (auto) 2.2 10^3/uL (0.1-0.6) H 11/24/23 18:44
Absolute Basos (auto) 0.1 10^3/uL (0-0.2) 11/24/23 18:44
Immature Gran % 1.3 % (0-0.5) H 11/24/23 18:44
Neutrophils % 83.2 % (42.2-75.2) H 11/24/23 18:44
Lymphocytes % 4.6 % (20.5-51.1) L 11/24/23 18:44
Monocytes % 10.4 % (1.7-9.3) H 11/24/23 18:44
Eosinophils % 0.0 % (0-6) 11/24/23 18:44
Basophils % 0.5 % (0-2) 11/24/23 18:44
Lactic Acid 4.4 mmol/L (0.7-2.0) H* 11/24/23 18:45
Microbiology Results
Micro:
11/25/23 04:57 MRSA Screen - Pending
Nose
11/24/23 19:47 Blood Culture - Pending
Blood/Venous
11/24/23 18:44 Influenza Types A & B (BIRDIE) - Final
Nasal Swab Negative for Influenza A & B, NAAT
Negative results must be combined with clinical observations
and patient history.
Nucleic Acid Amplification test (NAAT)performed on the
[employer] platform.
11/24/23 18:45 Blood Culture - Pending
Blood/Venous
11/24/23 CT a/p: Moderate to severe pancolitis with diffuse wall thickening and inflammatory fat stranding along the entire course of the colon.
Assessment / Plan
# Suspect severe C. difficile diarrhea
-WBC>15K, JACQUELIN on CKD3
- CT a/p mod to severe pancolitis
- Recent stool C. diff ag+, toxin - s/p 10d po Vancomycin.
-Repeat stool C. diff, also check for norovirus, stool cx.
- DC fidaxomicin
- Start high dose Vancomycin 500mg po q6H
- Monitor clinically.
- Follow WBC, renal function.
[2023-11-25 11:18] VITALS: BMI 22.5
[2023-11-25 11:38] VITALS: BP 104/63; PULSE 94; O2SAT 96
[2023-11-25 11:49] VITALS: BP 104/63; PULSE 94; O2SAT 96
[2023-11-25] MEDS: FIRVANQ 500 MG PO ×2 (12:14→17:09)
[2023-11-25 14:44] VITALS: BP 111/69
--- NOTE | 2023-11-25 15:35 | PTCARENOTE ---
This RN taking over care from 3-7pm. Patient comfortable in bed, visitors in room, call campo within reach.
[2023-11-25] MEDS: REMERON 7.5 MG PO (17:09)
[2023-11-25 22:55] LABS: Urine Albumin Trace (Neg - Trace); Urine Bilirubin Negative (Negative); Urine Character Clear (Clear); Urine Color Yellow; Urine Glucose Negative (Negative); Urine Ketone Negative (Negative); Urine Leukocyte Trace (Negative); Urine Nitrite Negative (Negative); Urine Occult Blood Negative (Negative); Urine Urobilinogen Negative (Neg - 1+)
[2023-11-25 23:05] LABS: Urine Red Blood Cell 0-2 /HPF (0-2); Urine White Cell 0-2 /HPF (0-5)
[2023-11-25 23:06] LABS: Urine Bacteria Moderate (Negative)
[2023-11-25 23:15] VITALS: BP 106/65
[2023-11-26] MEDS: FIRVANQ 500 MG PO ×5 (01:14→23:58)
[2023-11-26 04:41] VITALS: BMI 22.3
[2023-11-26] MEDS: NSS 1000 IV ×2 (06:07→15:24)
[2023-11-26] MEDS: SYNTHROID 50 MCG PO (06:08)
[2023-11-26 06:12] LABS: % Basophils 0.2 % (0-2); % Eosinophils 0.6 % (0-6); % Lymphocytes 6.1 % (20.5-51.1); % Monocytes 11.4 % (1.7-9.3); % Neutrophils 77.7 % (42.2-75.2); Absolute Eosinophils 0.1 10^3/uL (0-0.7); Absolute Immature Granulocytes 0.9 10^3/uL (0-0.05); Absolute Lymphocytes 1.3 10^3/uL (1.2-3.4); Absolute Monocytes 2.5 10^3/uL (0.1-0.6); Absolute Neutrophils 16.8 10^3/uL (1.4-6.5); Hematocrit 33.5 % (39.0-52.0); Hemoglobin 10.9 g/dL (13.0-18.0); Mean Corp Hgb Conc. 32.5 g/dL (33.0-37.0); Mean Corpuscular Hgb 31.1 pg (27.0-31.0); Mean Corpuscular Volume 95.4 fL (80.0-94.0); Mean Platelet Volume 10.5 fL (7.4-10.4); Nucleated Red Blood Cells % 0 % (-); Platelet Count 235 10^3/uL (130-400); Red Blood Cell Count 3.51 10^6/uL (4.70-6.10); Red Cell Dist. Width 14.6 % (11.5-14.5); White Blood Cell Count 21.6 10^3/uL (4.8-10.8)
[2023-11-26 07:15] LABS: Blood Urea Nitrogen 28 mg/dl (9-20); Calcium 7.9 mg/dl (8.4-10.2); Carbon Dioxide 20 mmol/L (22-30); Chloride 111 mmol/L (98-107); Estimated Creatinine Clearance 32 ml/min; Glucose 80 mg/dl (70-99); Potassium 3.7 mmol/L (3.5-5.1); Sodium 137 mmol/L (135-145); eGFR 38.53
[2023-11-26 07:26] VITALS: BP 105/58
--- NOTE | 2023-11-26 08:11 | W.PN.HOSP.TC ---
Addendum entered and electronically signed by Randy Anderson MD 11/26/23 15:35:
Sepsis, POA
Original Note:
Today's Communication/Plan
-
IV fluids, IV and oral antibiotics.
Assessment / Plan
Assessment / Plan
Physical Exam
General: Acutely ill
HEENT: PERRLA and Other (Dry MM.)
Respiratory: No crackles wheezes or rhonchi.
Cardiac: S1/S2 and Regular Rhythm; No Murmur
GI: Soft, bowel sounds hyperkinetic, mild distention, generalized tenderness.
Musculoskeletal: No Clubbing, No Cyanosis, No Edema and Other (RUE mobility limited secondary to prior fracture.)
Neuro: Awake, Alert and cognitive deficits.
Psych: Apparent Dementia; No Agitated
A/P:
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
-Continue IV fluids but decrease rate
-Discontinued Dificid
-Started on oral vancomycin high doses 500 mg p.o. every 6 hours since 11/24 by ID. ID added IV Flagyl today 11/25.
-ID consult appreciated
-Seen and reviewed CT scan
-I agree with checking stool studies for other offenders
-WBC 21.4-->15.1-->21.6 today
-Updated daughter over the phone yesterday, Anne.
-Patient with severe recurrent infection at very high risk of clinical deterioration but will monitor closely.
Acute kidney injury:
-Cr 2.4-->1.9-->1.7
-Cont ivf
-Avoid nephrotoxic
-Monitor renal function closely
-Monitor urine output
-Check renal US and bladder
Anemia
-Likely dilutional component
-Hb 13.2-->11.6-->10.9
-Cont to monitor
Hyponatremia
-improving
NPH
�- Gait dysfunction, incontinence and worsened dementia with radiographic findings c/w NPH.
�- Patient has been seen by Neuro who recommended Neurosurgery evaluation.
�- This was completed and family notes that patient is scheduled for shunt placement.
�- Would follow-up as an outpatient as scheduled - after CDiff is controlled.
Chronic Hypotension
�- Stable at present.� Follow orthostatic signs and ensure volume replete - especially given GI losses.
�- Continue midodrine (standing and PRN).
�- Follow for changes in BP.
Rheumatoid Arthritis
�- Stable.� No current complaints of joint pains.
�- Continue current medications including Plaquenil.
Hypothyroidism
�- Stable.� Recent TFTs were unremarkable.
�- Continue current T4 supplementation.
Senile Dementia
�- Stable.� Monitor for any acute delirium / agitation during hospital stay.
DVT Prophylaxis:� SCDs
Code Status:� Full
Total time spent on today's encounter was 52 minutes which included time spent in counseling the patient/family regarding diagnosis and treatment plan as listed above, goals of care, and symptom management. Case was discussed with nursing staff,
specialists, and care coordinators/case management. All labs and imaging personally reviewed by me. Remainder the time spent in detailed review of previous records, lab data, imaging, and other medical provider documentation.
Anticipated Discharge: > 48 hours
Subjective/Interval History
-
Date of Service: November 26, 2023
Patient having less diarrhea, more alert, afebrile. Leukocytosis worsened today.
Objective Data
-
Labs:
Laboratory Results
11/26/23
05:51
WBC 21.6 H
Hgb 10.9 L
Hct 33.5 L
Plt Count 235
Sodium 137
Potassium 3.7
Chloride 111 H
Carbon Dioxide 20 L
BUN 28 H
Creatinine 1.7 H
Glucose 80
Calcium 7.9 L
Vital Signs:
Vital Signs
Temp Pulse Resp BP Pulse Ox
97.8 F 95 17 106/65 97
11/25/23 23:15 11/25/23 23:15 11/25/23 23:15 11/25/23 23:15 11/25/23 23:15
I&O
11/25/23 11/26/23 11/27/23
06:59 06:59 06:59
Intake Total 150 / 150 0 / 2310
Output Total 200 / 200
Balance 150 / 150 2109 / 2109
--- NOTE | 2023-11-26 08:16 | CM ---
met with patient and daughter at bedside. patient adm from [facility] with diarrhea/pancolitis. he has dementia ,ckd,htn and amulates with a cane/walker.he needs assistance for adl's..he was recently adm to [facility] with
diarrhea/ciff end of oct 2023. patient is on ivf,po vanco.patient was seen by therapy who recommends skilled rehab. i have spoken with director biomedical engineering at [facility] where patient was at short term skilled level of care.they are willing to
take patient back and family is in agreement.
plan return to [facility] when medically stable.
[2023-11-26] MEDS: PLAQUENIL 200 MG PO ×2 (09:43→20:38)
[2023-11-26] MEDS: VISBIOME 1 CAP PO ×2 (09:44→20:38)
[2023-11-26] MEDS: ProAmatine 2.5 MG PO ×3 (09:45→17:47)
[2023-11-26] MEDS: ZYLOPRIM 300 MG PO (09:46)
[2023-11-26] MEDS: NSS IV (09:46)
--- NOTE | 2023-11-26 10:27 | PN.CDI ---
CDI
- -
CDI:
Physician Documentation Request
Admit Date: 11/24/23 22:11
Dear Doctor Monica,
Patient admitted with C diff colitis.
11/24 Infectious Disease Consult: 'Suspect severe C. difficile diarrhea -WBC>15K, JACQUELIN on CKD3'
Laboratory Tests
11/24/23
18:44
WBC 21.4 H
11/24/23
18:39 11/24/23
19:15 11/24/23
20:19
Pulse 113 102 104
Please clarify which of the following most accurately describes the status of the patient's infection:
Sepsis, POA
- Systemic manifestations of infection, with 2 or more SIRS criteria which include:
- Fever >100.4 degrees F or hypothermia < 96.8 degrees F
- Leukocytosis - WBC > 12,000 or leukopenia - WBC < 4,000 or > 10% bands
- Tachycardia > 90 beats per minute
- Tachypnea - RR > 20 breaths per minute or PaCO2 , 32mmHg
Source: Merck Manual 2013
Localized Infection Only, Without Systemic Illness
Other
Use of terms such as suspected, likely, concern for, or probable (associated with a specific diagnosis that is being evaluated, monitored, or treated as if it exists) are acceptable and can be coded in the inpatient setting, when documented at the
time of discharge.
Thank you,
Sienna Miranda RN, BSN
CDI Specialist
Available via [employer] text
Please use your independent medical judgment in providing your response.
--- NOTE | 2023-11-26 12:45 | W.PN.ID1 ---
Date of Service
Date of Service: November 26, 2023
Today's Communication
Add IV metronidazole to po Vanco.
Assessment / Plan
# Severe C. difficile diarrhea, first recurrence
# Leukocytosis trending up
# JACQUELIN on CKD3 improved
- CT a/p mod to severe pancolitis
- Continue Vancomycin 500mg po q6H (d2)
-Add short course IV metronidazole.
-Will de-escalate abx's when pt improves.
-Follow wbc
# Additional Past Medical History:
Cognitive impairment
HTN
hypothyroidism
gout
BPH
CKD3
RA on hydrochloroquine
Lap stacy (10/14/23)
Chief Complaint
-: Leukocytosis and C-diff
Subjective / Review of Systems
Daughter and at bedside. Pt more alert today. Diarrhea improved.
Vital Signs / Physical Exam
Vital Signs
Vital Signs
Temp Pulse Resp BP Pulse Ox
99.1 F 91 19 105/58 95
11/26/23 07:26 11/26/23 09:45 11/26/23 07:26 11/26/23 09:45 11/26/23 07:26
Physical Exam
Constitutional: No Acute Distress
Gastrointestinal: Soft, Non Tender and Decreased Bowel Sounds
Neurological: Awake and Alert
Objective Data
Lab Data
Lab Results
11/26/23 05:51
11/26/23 05:51
Estimated Creat Clear 32 ml/min 11/26/23 05:51
Lactic Acid 4.4 mmol/L (0.7-2.0) H* 11/24/23 18:45
Total Bilirubin 1.1 mg/dl (0.2-1.3) 11/24/23 18:44
AST 24 U/L (17-59) 11/24/23 18:44
ALT 19 U/L (0-50) 11/24/23 18:44
Alkaline Phosphatase 117 U/L (38-126) 11/24/23 18:44
Most recent labs reviewed.
Micro Results:
11/24/23 18:45 Blood Culture - Preliminary
Blood/Venous Coagulase neg. staphylococcus
Gram Stain - Final
11/25/23 17:07 Stool Leukocytes - Final
Feces/Stool
11/25/23 17:07 Salmonella/Shigella Culture - Preliminary
Feces/Stool Culture in Progress
Campylobacter Culture - Preliminary
Culture in Progress
Shiga Toxin Test - Pending
11/25/23 04:57 MRSA Screen - Final
Nose No Methicillin Resistant Staphylococcus aureus isolated.
11/26/23 05:51 Blood Culture - Pending
Blood/Venous
11/25/23 22:48 Urine Culture - Pending
Urine
11/24/23 19:47 Blood Culture - Preliminary
Blood/Venous No Growth in 24 hours- Final report to follow
11/25/23 17:07 - Final
Feces/Stool Negative for Norovirus GI and GII.
11/25/23 17:07 C. difficile GDH Antigen & Toxins - Final
Feces/Stool Toxigenic C.difficile Positive
11/24/23 18:44 Influenza Types A & B (BIRDIE) - Final
Nasal Swab Negative for Influenza A & B, NAAT
Negative results must be combined with clinical observations
and patient history.
Nucleic Acid Amplification test (NAAT)performed on the
[employer] platform.
11/24/23 CT a/p: Moderate to severe pancolitis with diffuse wall thickening and inflammatory fat stranding along the entire course of the colon.
[2023-11-26 13:51] VITALS: BP 131/69; PULSE 92
[2023-11-26] MEDS: ProAmatine PO (15:18)
[2023-11-26] MEDS: FLAGYL 500 MG 100 IV ×2 (15:19→22:11)
[2023-11-26 15:20] VITALS: BP 145/76
[2023-11-26] MEDS: REMERON 7.5 MG PO (17:40)
[2023-11-26 22:19] VITALS: BP 114/58
[2023-11-27] MEDS: NSS 1000 IV (04:11)
[2023-11-27 06:00] VITALS: BMI 22.3
[2023-11-27] MEDS: FLAGYL 500 MG 100 IV (06:04)
[2023-11-27] MEDS: SYNTHROID 50 MCG PO (06:04)
[2023-11-27] MEDS: FIRVANQ 500 MG PO (06:04)
[2023-11-27 07:22] VITALS: BP 131/57
[2023-11-27] MEDS: PLAQUENIL 200 MG PO ×2 (08:24→20:15)
[2023-11-27] MEDS: VISBIOME 1 CAP PO ×2 (08:24→20:15)
[2023-11-27] MEDS: ZYLOPRIM 300 MG PO (08:24)
--- NOTE | 2023-11-27 08:51 | W.PN.HOSP.TC ---
Today's Communication/Plan
-
Continue oral antibiotics.
Assessment / Plan
Assessment / Plan
Physical Exam
General: Acutely ill
HEENT: PERRLA and Other (Dry MM.)
Respiratory: No crackles wheezes or rhonchi.
Cardiac: S1/S2 and Regular Rhythm; No Murmur
GI: Soft, bowel sounds hyperkinetic, mild distention, generalized tenderness.
Musculoskeletal: No Clubbing, No Cyanosis, No Edema and Other (RUE mobility limited secondary to prior fracture.)
Neuro: Awake, Alert and cognitive deficits.
Psych: Apparent Dementia; No Agitated
A/P:
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
-Stop IV fluids today
-Discontinued Dificid
-Started on oral vancomycin high doses 500 mg p.o. every 6 hours since 11/24 by ID-->decreasing back to 125 mg QID on 11/26. Stop IV Flagyl today.
-ID consult appreciated
-Seen and reviewed CT scan
-WBC 21.6-->18.5 today
-Updated daughter over the phone prior.
-PT recommends skilled rehab
Acute kidney injury:
-Cr 2.4-->1.9-->1.7-->1.3
-Stop ivf-->encourage oral intake
-Avoid nephrotoxic
-Monitor renal function closely
-Monitor urine output
-Check renal US and bladder--> chronic renal disease.
Anemia
-Likely dilutional component
-Hb 13.2-->11.6-->10.9-->10.3
-stable
-Cont to monitor
Hyponatremia
-improved
NPH
�- Gait dysfunction, incontinence and worsened dementia with radiographic findings c/w NPH.
�- Patient has been seen by Neuro who recommended Neurosurgery evaluation.
�- This was completed and family notes that patient is scheduled for shunt placement.
�- Would follow-up as an outpatient as scheduled - after CDiff is controlled.
Chronic Hypotension
�- Stable at present.� Follow orthostatic signs and ensure volume replete - especially given GI losses.
�- Continue midodrine (standing and PRN).
�- Follow for changes in BP.
Rheumatoid Arthritis
�- Stable.� No current complaints of joint pains.
�- Continue current medications including Plaquenil.
Hypothyroidism
�- Stable.� Recent TFTs were unremarkable.
�- Continue current T4 supplementation.
Senile Dementia
�- Stable.� Monitor for any acute delirium / agitation during hospital stay.
DVT Prophylaxis:� SCDs
Code Status:� Full
Anticipated Discharge: 24 - 48 hours
Subjective/Interval History
-
Date of Service: November 27, 2023
Patient diarrhea better. Afebrile.
Objective Data
-
Labs:
Laboratory Results
11/27/23
08:42
WBC Pending
Hgb Pending
Hct Pending
Plt Count Pending
Sodium Pending
Potassium Pending
Chloride Pending
Carbon Dioxide Pending
BUN Pending
Creatinine Pending
Glucose Pending
Calcium Pending
Vital Signs:
Vital Signs
Temp Pulse Resp BP Pulse Ox
98.3 F 72 16 131/57 98
11/27/23 07:22 11/27/23 07:22 11/27/23 07:22 11/27/23 07:22 11/27/23 07:22
I&O
11/26/23 11/27/23 11/28/23
06:59 06:59 06:59
Intake Total 2310 / 2310 2480 / 2480
Output Total 200 / 200 20 / 20
Balance 2110 / 2110 2460 / 2460
[2023-11-27 09:01] LABS: Hematocrit 31.2 % (39.0-52.0); Hemoglobin 10.3 g/dL (13.0-18.0); Mean Corpuscular Hgb 31.6 pg (27.0-31.0); Mean Corpuscular Volume 95.7 fL (80.0-94.0); Mean Platelet Volume 10.3 fL (7.4-10.4); Platelet Count 218 10^3/uL (130-400); Red Blood Cell Count 3.26 10^6/uL (4.70-6.10); Red Cell Dist. Width 14.6 % (11.5-14.5); White Blood Cell Count 18.5 10^3/uL (4.8-10.8)
[2023-11-27 09:18] LABS: Blood Urea Nitrogen 26 mg/dl (9-20); Calcium 7.8 mg/dl (8.4-10.2); Carbon Dioxide 18 mmol/L (22-30); Chloride 111 mmol/L (98-107); Estimated Creatinine Clearance 42 ml/min; Glucose 95 mg/dl (70-99); Potassium 3.5 mmol/L (3.5-5.1); Sodium 136 mmol/L (135-145); eGFR 53.17
--- NOTE | 2023-11-27 09:53 | W.PN.ID1 ---
Date of Service
Date of Service: November 27, 2023
Today's Communication
See below.
Assessment / Plan
# Severe C. difficile diarrhea, first recurrence
# Leukocytosis - improved today
# JACQUELIN resolving
- CT a/p mod to severe pancolitis
-Diarrhea resolving.
- Decrease dose Vancomycin 500mg to 125mg po q6H (d3)
-DC IV metronidazole.
-Follow wbc
# Additional Past Medical History:
Cognitive impairment
HTN
hypothyroidism
gout
BPH
CKD3
RA on hydrochloroquine
Lap stacy (10/14/23)
Chief Complaint
-: Leukocytosis and C-diff
Subjective / Review of Systems
Diarrhea resolving.
Vital Signs / Physical Exam
Vital Signs
Vital Signs
Temp Pulse Resp BP Pulse Ox
98.3 F 72 16 131/57 98
11/27/23 07:22 11/27/23 07:22 11/27/23 07:22 11/27/23 07:22 11/27/23 07:22
Physical Exam
Constitutional: No Acute Distress and Comfortable
Gastrointestinal: Soft, Non Tender and Non Distended
Neurological: Awake and Alert
Objective Data
Lab Data
Lab Results
11/27/23 08:42
11/27/23 08:42
Estimated Creat Clear 42 ml/min 11/27/23 08:42
Lactic Acid 4.4 mmol/L (0.7-2.0) H* 11/24/23 18:45
Total Bilirubin 1.1 mg/dl (0.2-1.3) 11/24/23 18:44
AST 24 U/L (17-59) 11/24/23 18:44
ALT 19 U/L (0-50) 11/24/23 18:44
Alkaline Phosphatase 117 U/L (38-126) 11/24/23 18:44
Most recent labs reviewed.
Micro Results:
11/25/23 22:48 Urine Culture - Final
Urine No Significant Growth
11/26/23 05:51 Blood Culture - Preliminary
Blood/Venous No Growth in 24 hours- Final report to follow
11/24/23 19:47 Blood Culture - Preliminary
Blood/Venous No Growth in 48 hours- Final report to follow
11/24/23 18:45 Blood Culture - Preliminary
Blood/Venous Coagulase neg. staphylococcus
Gram Stain - Final
11/25/23 17:07 Stool Leukocytes - Final
Feces/Stool
11/25/23 17:07 Salmonella/Shigella Culture - Preliminary
Feces/Stool Culture in Progress
Campylobacter Culture - Preliminary
Culture in Progress
Shiga Toxin Test - Pending
11/25/23 04:57 MRSA Screen - Final
Nose No Methicillin Resistant Staphylococcus aureus isolated.
11/25/23 17:07 - Final
Feces/Stool Negative for Norovirus GI and GII.
11/25/23 17:07 C. difficile GDH Antigen & Toxins - Final
Feces/Stool Toxigenic C.difficile Positive
11/24/23 18:44 Influenza Types A & B (BIRDIE) - Final
Nasal Swab Negative for Influenza A & B, NAAT
Negative results must be combined with clinical observations
and patient history.
Nucleic Acid Amplification test (NAAT)performed on the
[employer] platform.
11/24/23 CT a/p: Moderate to severe pancolitis with diffuse wall thickening and inflammatory fat stranding along the entire course of the colon.
[2023-11-27] MEDS: FIRVANQ 125 MG PO ×2 (11:51→17:48)
[2023-11-27] MEDS: ProAmatine 2.5 MG PO (12:00)
[2023-11-27 15:00] VITALS: BP 127/55
[2023-11-27] MEDS: ProAmatine PO (16:56)
[2023-11-27] MEDS: REMERON 7.5 MG PO (17:48)
[2023-11-27 23:05] VITALS: BP 122/57
[2023-11-27 23:10] VITALS: BP 106/63; BP 122/57; PULSE 80; PULSE 88
[2023-11-28] MEDS: FIRVANQ 125 MG PO ×4 (00:16→18:19)
[2023-11-28] MEDS: SYNTHROID 50 MCG PO (05:42)
[2023-11-28 06:00] VITALS: BMI 23.5
[2023-11-28 07:43] VITALS: BP 120/64
[2023-11-28] MEDS: ProAmatine 2.5 MG PO ×2 (08:20→11:52)
[2023-11-28] MEDS: VISBIOME 1 CAP PO (08:22)
[2023-11-28] MEDS: ZYLOPRIM 300 MG PO (08:22)
[2023-11-28] MEDS: PLAQUENIL 200 MG PO (08:22)
--- NOTE | 2023-11-28 08:46 | W.PN.HOSP.TC ---
Addendum entered and electronically signed by Randy Anderson MD 11/28/23 16:59:
There is some concerns about dysphagia today noted by RN. Will keep him n.p.o. for tonight, start IV fluids, change potassium to IV, and will have speech therapy for swallow evaluation tomorrow.
Original Note:
Today's Communication/Plan
-
Continue oral vancomycin. Continue PT OT.
Assessment / Plan
Assessment / Plan
Physical Exam
General: Acutely ill
HEENT: PERRLA and Other (moist MM.)
Respiratory: No crackles wheezes or rhonchi.
Cardiac: S1/S2 and Regular Rhythm; No Murmur
GI: Soft, bowel sounds normal today, no distention, generalized tenderness.
Musculoskeletal: No Clubbing, No Cyanosis, No Edema and Other (RUE mobility limited secondary to prior fracture.)
Neuro: Awake, Alert and cognitive deficits.
Psych: Apparent Dementia; No Agitated.
A/P:
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
-On oral vancomycin 125 mg p.o. every 6 hours.
-ID consult appreciated
-Seen and reviewed abdomen CT scan
-WBC 21.6-->16.5 today
-Updated family at bedside today on 11/27.
-PT recommends skilled rehab
Delirium:
-Somewhat expected in the setting of infection and underlying dementia
-Continue to monitor mental status and behavior.
-CT head unremarkable for acute findings 11/23
Acute kidney injury:
-Resolved with hydration
-Cr 2.4-->1.9-->1.7-->1.3-->1.2
-Off IV fluids for more than 24 hours
-Continue oral intake
-Avoid nephrotoxic
-Monitor renal function closely
-Monitor urine output
-Checked renal US and bladder--> chronic renal disease.
Anemia
-Chronic and initial drift likely dilutional component
-Hb 13.2-->11.6-->10.9-->10.3-->10.4
-stable
-Cont to monitor
Hyponatremia
-Resolved, sodium 135 today
Hypokalemia
-Replete and trend
NPH
�- Gait dysfunction, incontinence and worsened dementia with radiographic findings c/w NPH.
�- Patient has been seen by Neuro who recommended Neurosurgery evaluation.
�- This was completed and family notes that patient is scheduled for shunt placement.
�- Would follow-up as an outpatient as scheduled - after CDiff is controlled.
Chronic Hypotension
�- Stable at present.� Follow orthostatic signs and ensure volume replete - especially given GI losses.
�- Continue midodrine (standing and PRN).
�- Follow for changes in BP.
Rheumatoid Arthritis
�- Stable.� No current complaints of joint pains.
�- Continue current medications including Plaquenil.
Hypothyroidism
�- Stable.� Recent TFTs were unremarkable.
�- Continue current T4 supplementation.
Senile Dementia
�- Stable.� Monitor for any acute delirium / agitation during hospital stay.
DVT Prophylaxis:� SCDs
Code Status:� Full
Anticipated Discharge: > 48 hours
Subjective/Interval History
-
Date of Service: November 28, 2023
Patient diarrhea improving. Seen and examined and discussed with family at bedside. Afebrile.Blood pressure stable.
Objective Data
-
Labs:
Laboratory Results
11/28/23
08:19
WBC Pending
Hgb Pending
Hct Pending
Plt Count Pending
Vital Signs:
Vital Signs
Temp Pulse Resp BP Pulse Ox
97.7 F 82 18 120/64 93
11/28/23 07:43 11/28/23 08:20 11/28/23 07:43 11/28/23 08:20 11/28/23 07:43
I&O
11/27/23 11/28/23 11/29/23
06:59 06:59 06:59
Intake Total 2480 / 2480 420 / 420
Output Total
Balance 2460 / 2460 420 / 420
Review of Systems
-
Unable to obtain full review of systems at this time due to: Dementia
[2023-11-28 09:12] LABS: Hematocrit 30.8 % (39.0-52.0); Hemoglobin 10.4 g/dL (13.0-18.0); Mean Corp Hgb Conc. 33.8 g/dL (33.0-37.0); Mean Corpuscular Hgb 31.5 pg (27.0-31.0); Mean Corpuscular Volume 93.3 fL (80.0-94.0); Mean Platelet Volume 10.1 fL (7.4-10.4); Platelet Count 204 10^3/uL (130-400); Red Cell Dist. Width 14.6 % (11.5-14.5); White Blood Cell Count 16.5 10^3/uL (4.8-10.8)
[2023-11-28 09:27] LABS: Blood Urea Nitrogen 20 mg/dl (9-20); Calcium 7.4 mg/dl (8.4-10.2); Carbon Dioxide 19 mmol/L (22-30); Chloride 113 mmol/L (98-107); Estimated Creatinine Clearance 48 ml/min; Glucose 98 mg/dl (70-99); Potassium 3.2 mmol/L (3.5-5.1); Sodium 135 mmol/L (135-145); eGFR 58.53
[2023-11-28] MEDS: KCL 40 MEQ PO (12:44)
--- NOTE | 2023-11-28 15:01 | W.PN.ID1 ---
Date of Service
Date of Service: November 28, 2023
Today's Communication
See below.
Assessment / Plan
# Severe C. difficile diarrhea, first recurrence
# Leukocytosis - continues to improve
# JACQUELIN resolved
- CT a/p mod to severe pancolitis
-Diarrhea resolved
-Recommend vancomycin taper:
- Vancomycin 125mg po q6H through 12/06
' ' ' q8H through 12/13
' ' ' q12H through 12/20
' ' ' q24H through 12/27
' ' ' qod through 01/10
Follow-up with me in 3 weeks to arrange for outpatient Bezlotoxumab
# Additional Past Medical History:
Cognitive impairment
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
HTN
hypothyroidism
gout
BPH
CKD3
RA on hydrochloroquine
Lap stacy (10/14/23)
Chief Complaint
-: Leukocytosis and C-diff
Subjective / Review of Systems
Doing well.
Vital Signs / Physical Exam
Vital Signs
Vital Signs
Temp Pulse Resp BP Pulse Ox
97.7 F 81 18 125/62 93
11/28/23 07:43 11/28/23 11:52 11/28/23 07:43 11/28/23 11:52 11/28/23 07:43
Physical Exam
Constitutional: No Acute Distress
Gastrointestinal: Soft, Non Tender and Non Distended
Neurological: Awake and Alert
Objective Data
Lab Data
Lab Results
11/28/23 08:58
11/28/23 08:58
Estimated Creat Clear 48 ml/min 11/28/23 08:58
Lactic Acid 4.4 mmol/L (0.7-2.0) H* 11/24/23 18:45
Total Bilirubin 1.1 mg/dl (0.2-1.3) 11/24/23 18:44
AST 24 U/L (17-59) 11/24/23 18:44
ALT 19 U/L (0-50) 11/24/23 18:44
Alkaline Phosphatase 117 U/L (38-126) 11/24/23 18:44
Most recent labs reviewed.
Micro Results:
11/25/23 17:07 Salmonella/Shigella Culture - Final
Feces/Stool No Salmonella, Shigella, Aeromonas or Plesiomonas species
isolated.
Campylobacter Culture - Final
No Campylobacter species isolated.
Shiga Toxin Test - Pending
11/26/23 05:51 Blood Culture - Preliminary
Blood/Venous No Growth in 48 hours- Final report to follow
11/24/23 19:47 Blood Culture - Preliminary
Blood/Venous No Growth in 72 hours- Final report to follow
11/24/23 18:45 Blood Culture - Final
Blood/Venous Coagulase neg. staphylococcus
Gram Stain - Final
11/25/23 22:48 Urine Culture - Final
Urine No Significant Growth
11/25/23 17:07 Stool Leukocytes - Final
Feces/Stool
11/25/23 04:57 MRSA Screen - Final
Nose No Methicillin Resistant Staphylococcus aureus isolated.
11/25/23 17:07 - Final
Feces/Stool Negative for Norovirus GI and GII.
11/25/23 17:07 C. difficile GDH Antigen & Toxins - Final
Feces/Stool Toxigenic C.difficile Positive
11/24/23 18:44 Influenza Types A & B (BIRDIE) - Final
Nasal Swab Negative for Influenza A & B, NAAT
Negative results must be combined with clinical observations
and patient history.
Nucleic Acid Amplification test (NAAT)performed on the
[employer] platform.
11/24/23 CT a/p: Moderate to severe pancolitis with diffuse wall thickening and inflammatory fat stranding along the entire course of the colon.
[2023-11-28 15:35] VITALS: BP 133/64
[2023-11-28] MEDS: NSS 1000 IV (17:37)
[2023-11-28] MEDS: ProAmatine PO (17:38)
[2023-11-28] MEDS: KCL 270 MEQ IV (17:48)
[2023-11-28] MEDS: REMERON PO (17:55)
[2023-11-28 21:27] VITALS: BP 150/71
[2023-11-28] MEDS: VISBIOME PO (21:34)
[2023-11-28] MEDS: PLAQUENIL PO (21:34)
[2023-11-28 22:50] VITALS: BP 150/71
[2023-11-29] MEDS: FIRVANQ 125 MG PO ×5 (00:29→23:16)
[2023-11-29 04:29] VITALS: BMI 23.4
[2023-11-29] MEDS: NSS IV ×2 (06:00→17:16)
[2023-11-29] MEDS: SYNTHROID 50 MCG PO (06:25)
[2023-11-29 06:46] LABS: Hematocrit 32.9 % (39.0-52.0); Hemoglobin 10.4 g/dL (13.0-18.0); Mean Corp Hgb Conc. 31.6 g/dL (33.0-37.0); Mean Corpuscular Hgb 30.9 pg (27.0-31.0); Mean Corpuscular Volume 97.6 fL (80.0-94.0); Mean Platelet Volume 10.4 fL (7.4-10.4); Platelet Count 193 10^3/uL (130-400); Red Blood Cell Count 3.37 10^6/uL (4.70-6.10); Red Cell Dist. Width 14.6 % (11.5-14.5); White Blood Cell Count 15.6 10^3/uL (4.8-10.8)
[2023-11-29 07:00] VITALS: BP 105/50
--- NOTE | 2023-11-29 07:39 | W.PN.HOSP.TC ---
Today's Communication/Plan
-
Continue p.o. vancomycin/vancomycin taper as per ID on discharge
Replete potassium
Continue to monitor BMP and CBC
Remains n.p.o. and await speech therapy eval
[facility]
Assessment / Plan
Assessment / Plan
Physical Exam
General: Acutely ill
HEENT: PERRLA and Other (moist MM.)
Respiratory: No crackles wheezes or rhonchi.
Cardiac: S1/S2 and Regular Rhythm; No Murmur
GI: Soft, bowel sounds normal today, no distention, generalized tenderness.
Musculoskeletal: No Clubbing, No Cyanosis, No Edema and Other (RUE mobility limited secondary to prior fracture.)
Neuro: Awake, Alert and cognitive deficits.
Psych: Apparent Dementia; No Agitated.
A/P:
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
-On oral vancomycin 125 mg p.o. every 6 hours.
-aper schedule as outlined by ID
-ID consult appreciated
-Seen and reviewed abdomen CT scan
-WBC 21.6-->15.5 today
-Updated family at bedside today on 11/27.
-PT recommends skilled rehab
Delirium:
-Somewhat expected in the setting of infection and underlying dementia
-Continue to monitor mental status and behavior.
-CT head unremarkable for acute findings 11/23
-Remains n.p.o. and speech therapy to evaluate
Acute kidney injury:
-Resolved with hydration
-Cr 2.4-->1.9-->1.7-->1.3-->1.2
-Off IV fluids for more than 24 hours
-Continue oral intake
-Avoid nephrotoxic
-Monitor renal function closely
-Monitor urine output
-Checked renal US and bladder--> chronic renal disease.
Anemia
-Chronic and initial drift likely dilutional component
-Hb 13.2-->11.6-->10.9-->10.3-->10.4
-stable
-Cont to monitor
Hyponatremia
-Resolved, sodium 135 today
Hypokalemia
-Replete and trend
NPH
�- Gait dysfunction, incontinence and worsened dementia with radiographic findings c/w NPH.
�- Patient has been seen by Neuro who recommended Neurosurgery evaluation.
�- This was completed and family notes that patient is scheduled for shunt placement.
�- Would follow-up as an outpatient as scheduled - after CDiff is controlled.
Chronic Hypotension
�- Stable at present.� Follow orthostatic signs and ensure volume replete - especially given GI losses.
�- Continue midodrine (standing and PRN).
�- Follow for changes in BP.
Rheumatoid Arthritis
�- Stable.� No current complaints of joint pains.
�- Continue current medications including Plaquenil.
Hypothyroidism
�- Stable.� Recent TFTs were unremarkable.
�- Continue current T4 supplementation.
Senile Dementia
�- Stable.� Monitor for any acute delirium / agitation during hospital stay.
DVT Prophylaxis:� SCDs
Code Status:� Full
Anticipated Discharge: 24 - 48 hours
Subjective/Interval History
-
Date of Service: November 29, 2023
Remains n.p.o./no apparent diarrhea overnight/denies abdominal pain mildly lethargic and not the best historian
Objective Data
-
Labs:
Laboratory Results
11/29/23
06:13
WBC 15.6 H
Hgb 10.4 L
Hct 32.9 L
Plt Count 193
Vital Signs:
Vital Signs
Temp Pulse Resp BP Pulse Ox
98.2 F 82 20 150/71 96
03/17/24 22:50 11/28/23 22:50 11/28/23 22:50 11/28/23 22:50 11/28/23 22:50
I&O
11/28/23 11/29/23 11/30/23
06:59 06:59 06:59
Intake Total 420 / 420 240 / 240
Balance 420 / 420 240 / 240
Review of Systems
-
Unable to obtain full review of systems at this time due to: Dementia
History Source: Patient
Constitutional: Reports No Symptoms
Cardiac: Reports No Symptoms
Abdomen/GI: Denies Abdominal Pain or Diarrhea
Physical Exam
-
General: Well Developed
HEENT: Normocephalic
Respiratory: Clear to Auscultation
Cardiac: Regular Rhythm
GI: Soft and Nontender
Skin: IV Access / Catheter Site
Psych: Confused
Data Reviewed
-
Total Time Spent with Patient (in minutes): 45
Labs: Labs Reviewed by me (15,000 white count slight trend down/hemoglobin stable 10.4/potassium 3.2)
[2023-11-29] MEDS: KCL 160 MEQ IV (08:32)
[2023-11-29] MEDS: ZYLOPRIM 300 MG PO (09:04)
[2023-11-29] MEDS: VISBIOME 1 CAP PO ×2 (09:04→21:21)
[2023-11-29] MEDS: ProAmatine 2.5 MG PO ×2 (09:05→11:44)
[2023-11-29] MEDS: PLAQUENIL 200 MG PO ×2 (09:05→21:21)
--- NOTE | 2023-11-29 09:27 | PTOTSP ---
Speech Therapy Assessment
Oral/pharyngeal swallow deemed within functional limits with effective mastication, complete oral clearance and what appeared to be prompt, well-coordinated swallows. No coughing or other overt signs of aspiration. No complaint or signs to suggest
pharyngeal stasis.
Recommend
1. Regular solids and Thin Liquids
2. Meds as tolerated - patient does not like applesauce so if need to place in pureed, suggest yogurt, ice cream or pudding.
3. Aspiration precautions
4. Assist with set up and feeding as needed.
ST will follow up briefly to enure diet tolerance/need for instrumental testing.
--- NOTE | 2023-11-29 12:20 | W.PN.ID1 ---
Date of Service
Date of Service: November 29, 2023
Today's Communication
Vancomycin taper as below.
Assessment / Plan
# Severe C. difficile diarrhea, first recurrence
# Leukocytosis - continues to improve
# JACQUELIN resolved
- CT a/p mod to severe pancolitis
-Diarrhea resolved
-Recommend vancomycin taper:
- Vancomycin 125mg po q6H through 12/06
' ' ' q8H through 12/13
' ' ' q12H through 12/20
' ' ' q24H through 12/27
' ' ' qod through 01/10
Follow-up with me in 3 weeks to arrange for outpatient Bezlotoxumab
# Additional Past Medical History:
Cognitive impairment
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
HTN
hypothyroidism
gout
BPH
CKD3
RA on hydrochloroquine
Lap stacy (10/14/23)
Chief Complaint
-: Leukocytosis and C-diff
Subjective / Review of Systems
Doing OK.
Vital Signs / Physical Exam
Vital Signs
Vital Signs
Temp Pulse Resp BP Pulse Ox
98.2 F 86 16 100/56 98
11/29/23 07:00 11/29/23 11:44 11/29/23 07:00 11/29/23 11:44 11/29/23 07:00
Physical Exam
Constitutional: No Acute Distress
Gastrointestinal: Soft, Non Tender and Non Distended
Objective Data
Lab Data
Lab Results
11/29/23 06:13
11/28/23 08:58
Estimated Creat Clear 48 ml/min 11/28/23 08:58
Lactic Acid 4.4 mmol/L (0.7-2.0) H* 11/24/23 18:45
Total Bilirubin 1.1 mg/dl (0.2-1.3) 11/24/23 18:44
AST 24 U/L (17-59) 11/24/23 18:44
ALT 19 U/L (0-50) 11/24/23 18:44
Alkaline Phosphatase 117 U/L (38-126) 11/24/23 18:44
Most recent labs reviewed.
Micro Results:
11/25/23 17:07 Salmonella/Shigella Culture - Final
Feces/Stool No Salmonella, Shigella, Aeromonas or Plesiomonas species
isolated.
Campylobacter Culture - Final
No Campylobacter species isolated.
Shiga Toxin Test - Final
No E. coli Shiga Toxin 1 or 2 detected.
11/26/23 05:51 Blood Culture - Preliminary
Blood/Venous No Growth in 72 hours- Final report to follow
11/24/23 19:47 Blood Culture - Preliminary
Blood/Venous No Growth in 4 days- Final report to follow
11/24/23 18:45 Blood Culture - Final
Blood/Venous Coagulase neg. staphylococcus
Gram Stain - Final
11/25/23 22:48 Urine Culture - Final
Urine No Significant Growth
11/25/23 17:07 Stool Leukocytes - Final
Feces/Stool
11/25/23 04:57 MRSA Screen - Final
Nose No Methicillin Resistant Staphylococcus aureus isolated.
11/25/23 17:07 - Final
Feces/Stool Negative for Norovirus GI and GII.
11/25/23 17:07 C. difficile GDH Antigen & Toxins - Final
Feces/Stool Toxigenic C.difficile Positive
11/24/23 18:44 Influenza Types A & B (BIRDIE) - Final
Nasal Swab Negative for Influenza A & B, NAAT
Negative results must be combined with clinical observations
and patient history.
Nucleic Acid Amplification test (NAAT)performed on the
[employer] platform.
11/24/23 CT a/p: Moderate to severe pancolitis with diffuse wall thickening and inflammatory fat stranding along the entire course of the colon.
Care Review
Plan reviewed with: Physician (Dr. Donohue)
[2023-11-29 15:00] VITALS: BP 139/71
--- NOTE | 2023-11-29 15:11 | CM ---
CM reviewed chart and noted dc order
Bedside meeting with family- in agreement with SNF for continued ST rehab
Return SNF bed confirmed with Rosamaria/admissions
Updated clinicals sent via [facility]
[employer] auth initiated on [employer]
Pending auth# [id number]
Clinicals faxed [phone]
Anticipate determination tomorrow
Update to Dr. Donohue
Discharge Disposition- return to [facility] pending [employer] auth
[2023-11-29] MEDS: ProAmatine PO (17:07)
[2023-11-29] MEDS: REMERON 7.5 MG PO (17:16)
[2023-11-29 23:00] VITALS: BP 124/63
[2023-11-30 05:25] VITALS: BP 139/76; BP 143/63; PULSE 86; PULSE 88
[2023-11-30] MEDS: FIRVANQ 125 MG PO ×4 (06:04→23:26)
[2023-11-30] MEDS: SYNTHROID 50 MCG PO (06:04)
[2023-11-30 06:52] LABS: Hematocrit 32.3 % (39.0-52.0); Hemoglobin 10.3 g/dL (13.0-18.0); Mean Corp Hgb Conc. 31.9 g/dL (33.0-37.0); Mean Corpuscular Volume 97.3 fL (80.0-94.0); Mean Platelet Volume 10.5 fL (7.4-10.4); Platelet Count 208 10^3/uL (130-400); Red Blood Cell Count 3.32 10^6/uL (4.70-6.10); Red Cell Dist. Width 14.6 % (11.5-14.5); White Blood Cell Count 18.2 10^3/uL (4.8-10.8)
[2023-11-30 07:40] VITALS: BP 111/60
[2023-11-30] MEDS: ProAmatine 2.5 MG PO ×3 (08:14→17:09)
[2023-11-30] MEDS: VISBIOME 1 CAP PO ×2 (08:15→21:10)
[2023-11-30] MEDS: ZYLOPRIM 300 MG PO (08:15)
[2023-11-30] MEDS: PLAQUENIL 200 MG PO ×2 (08:15→21:10)
--- NOTE | 2023-11-30 08:24 | W.PN.UPDATE ---
Update Note
Progress Note Update
Patient seen and examined
Proposed date of discharge is today. No further diarrheal stools
He tolerated diet yesterday after being cleared by speech therapy for regular diet with thin liquids
Vital signs are stable and afebrile
Lungs are clear
Abdomen soft nontender
Condom catheter in place with clear urine return in Humphreys bag
Some continued leukocytosis but no signs of infection presently and should continue on his vancomycin taper schedule as outlined by infectious disease
Still awaiting disposition to subacute nursing facility as per insurance and case management stable for discharge
--- NOTE | 2023-11-30 11:39 | W.DCSUMMARY ---
Discharge Summary
Discharge Data
Date of Admission: 11/24/23
Date of Discharge: 11/30/23
-
Pending Results: No
Hospital Course
87-year-old with a past history of dementia hypertension and CKD recent hospitalization with nausea vomiting diarrhea again presented with apparent gastroenteritis back in October 06 presented with acute cholecystitis and underwent a lap stacy and
returned to the hospital in early October he has been having frequent falls was briefly in a subacute nursing facility and rehab following his hospital stay. He returned to on the where he with diarrhea and was treated for C. difficile
colitis with oral vancomycin and completed course of therapy on 14 November he again started having diarrheal stooling on 22 November prompting his evaluation here and admission on the .
He has been subsequently found to have pancolitis in relation to his recurrent C. difficile colitis enteritis. Initial presentation of a leukocytosis qualify for sepsis with acute kidney injury and on top of chronic kidney disease stage III with CT
imaging showing moderate to severe pancolitis. After being seen by infectious disease service discontinuation at discontinuation of Dificid him started on high-dose vancomycin 500 mg every 6 hours orally. Subsequent addition of metronidazole IV
was also undertaken.
Acute kidney injury resolved and back to his baseline chronic kidney disease stage III after IV fluids.
His diarrhea relented on 27 November and has stayed stable without significant loss since then
Based on determinations of assessment the physical therapy modalities and the family's wishes is apparent the patient will require subacute nursing facility placement for further rehab in relation to his underlying cognitive impairment normal
pressures hydrocephalus with the patient will eventually need shunt placement along with underlying rheumatoid arthritis on hydroxychloroquine.
The following vancomycin taper schedule will be undertaken at time of discharge
Recommend vancomycin taper:
�� -� Vancomycin 125mg po q6H� through 12/06
� � � � � � ' � � � � � � '� � � � '� � q8H through 12/13
� � � � � � ' � � � � � � '� � � � '� � q12H through� 12/20
� � � � � � ' � � � � � � '� � � � '� � q24H through 12/27
� � � � � � ' � � � � � � '� � � � '� � qod through � 01/10
�� Follow-up with ID in 3 weeks to arrange for outpatient Bezlotoxumab
Otherwise other outpatient medications have been unchanged
Discharge Plan
-
Patient Disposition: Usp/SNF
Discharge Diagnosis/Procedures: C. difficile colitis
Pancolitis
Resolving leukocytosis
Acute kidney injury resolving
Hyponatremia resolved
Normal pressure hydrocephalus with gait dysfunction in need of eventual shunt placement
Diet: Regular
Activity: With Walker
Driving Restrictions: No driving
Activity Restrictions/Additional Instructions:
Vancomycin taper:
Vancomycin 125mg po q6H through 12/07/23
Vancomycin 125mg po q8H through 12/14/23
Vancomycin 125mg po q12H through 12/21/23
Vancomycin 125mg po q24H through 12/28/23
Vancomycin 125mg po qod through 01/11/24
Referrals:
Eron Gurrola MD [Family Provider] -
Lauren Perez MD [Active] - in two to three weeks
Additional Discharge Medication Instructions: Vancomycin taper:
Vancomycin 125mg po q6H through 12/07/23
Vancomycin 125mg po q8H through 12/14/23
Vancomycin 125mg po q12H through 12/21/23
Vancomycin 125mg po q24H through 12/28/23
Vancomycin 125mg po qod through 01/11/24
Prescriptions:
New
vancomycin [Firvanq] 50 mg/mL Recon Soln
125 mg PO Q6 Qty: 150 0RF
Continued
midodrine 5 mg Tablet
5 mg PO Q8H PRN (Reason: hypotensive episoide)
Rx Instructions:
hold for SBP <90
levothyroxine [Synthroid] 50 mcg Tablet
50 mcg PO DAILY AT 0700
allopurinol 300 mg Tablet
300 mg PO DAILY
hydroxychloroquine [Plaquenil] 200 mg Tablet
200 mg PO BID
cholecalciferol (vitamin D3) [Vitamin D3] 25 mcg (1,000 unit) Tablet
25 mcg PO DAILY
wuiuzkvvzhep-irywnnkw-ghgrxs Tablet
1 tab PO DAILY
acetaminophen 325 mg Tablet
650 mg PO Q4H PRN (Reason: mild pain/temp>100F)
midodrine 2.5 mg Tablet
2.5 mg PO TID
Rx Instructions:
hold for SBP 130 or greater
mirtazapine [Remeron] 15 mg Tablet
7.5 mg PO QPM
guaifenesin [Lorena-Tussin] 100 mg/5 mL Liquid
300 mg PO Q6H PRN (Reason: cough)
Probiotic 3 billion cell capsule
6,000 mmu cells PO BID
Discontinued
magnesium hydroxide [Milk of Magnesia] 400 mg/5 mL Suspension
30 ml PO DAILY PRN (Reason: if no bm x 3 days)
bisacodyl [Dulcolax (bisacodyl)] 10 mg Suppository
10 mg OR DAILY PRN (Reason: if mom is ineffective after 24hrs)
Fleet Enema 19-7 gram/118 mL Enema
118 ml OR DAILY PRN (Reason: if dulcolax is ineffective after 24hrs)
Discharge Orders:
Discharge Patient (As Directed); Ordered 11/30/23
Ordered By: Chris Donohue
--- NOTE | 2023-11-30 12:38 | CM ---
Addendum entered by MARTA Lopez 11/30/23 16:54:
Placed a call to [employer] and spoke with a retail representative named, Guille, who stated that the authorization is still pending and should be available tomorrow. Will continue to f/u.
Original Note:
Received a call from patient's daughter who inquired as to time of d/c. Updated her that insurance approval has yet to come through and therefore will give her a call upon hopeful approval and subsequent time set up.
Plan: Case management will continue to follow and assist with discharge planning. osd clerk will set up time once hopeful approval is received from insurance.
--- NOTE | 2023-11-30 14:02 | W.DS.TRANS ---
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
-
Discharge Instructions:
Discharge Diagnosis/Procedures C. difficile colitis
Pancolitis
Resolving leukocytosis
Acute kidney injury resolving
Hyponatremia resolved
Normal pressure hydrocephalus with gait
dysfunction in need of eventual shunt placement
Diet Regular
Activity With Walker
Driving Restrictions No driving
Instructions:
Stand-Alone Forms:
Changes to Home Medications: Yes
Discharge Medications:
DC Medications w/original date entered in [facility]
allopurinol 300 mg tablet 300 mg PO DAILY Gout 10/13/23
cholecalciferol (vitamin D3) 25 mcg (1,000 unit) tablet (Vitamin D3) 25 mcg PO DAILY Supplement 10/13/23
hydroxychloroquine 200 mg tablet (Plaquenil) 200 mg PO BID Rheumatoid arthritis 10/13/23
levothyroxine 50 mcg tablet (Synthroid) 50 mcg PO DAILY AT 0700 Thyroid 10/13/23
midodrine 5 mg tablet 5 mg PO Q8H PRN hypotensive episoide 10/13/23
tfholhhcoier-sedzdpqi-xrkees tablet 1 tab PO DAILY Supplement 10/18/23
acetaminophen 325 mg tablet 650 mg PO Q4H PRN mild pain/temp>100F 11/03/23
midodrine 2.5 mg tablet 2.5 mg PO TID Blood Pressure 11/03/23
mirtazapine 15 mg tablet (Remeron) 7.5 mg PO QPM Mental Health/Anxiety 11/03/23
guaifenesin 100 mg/5 mL oral liquid (Lorena-Tussin) 300 mg PO Q6H PRN cough 11/24/23
lactobacillus combination no.4 3 billion cell capsule (Probiotic) 6,000 mmu cells PO BID Supplement 11/24/23
vancomycin 50 mg/mL oral solution (Firvanq) 125 mg (2.5 mL) PO Q6 Infection #150 mL 11/29/23
Home Medication Changes
lactobacillus combination no.4 3 billion cell capsule (Probiotic) 6,000 mmu cells PO BID Supplement 11/24/23
vancomycin 50 mg/mL oral solution (Firvanq) 125 mg (2.5 mL) PO Q6 Infection #150 mL 11/29/23
Pending Results: No
Total time spent discharging patient (in min): 48
[2023-11-30 15:35] VITALS: BP 137/60; PULSE 82; O2SAT 97
[2023-11-30 15:55] VITALS: BP 137/60
[2023-11-30] MEDS: REMERON 7.5 MG PO (17:09)
--- NOTE | 2023-11-30 17:37 | W.PN.UPDATE ---
Update Note
Progress Note Update
pt discharge date will now be 11/30 as insurance auth still pending
cont Po vancomycin and tapewr schedule as outlined in d/c
Pt seen and examined by me and stable for discharge in AM
[2023-11-30] MEDS: TYLENOL 650 MG PO (21:10)
[2023-12-01 00:26] VITALS: BP 120/58
[2023-12-01] MEDS: SYNTHROID 50 MCG PO (05:07)
[2023-12-01] MEDS: FIRVANQ 125 MG PO ×2 (05:07→11:34)
[2023-12-01 06:00] VITALS: BMI 23.3
[2023-12-01 06:20] LABS: Hemoglobin 9.8 g/dL (13.0-18.0); Mean Corp Hgb Conc. 32.7 g/dL (33.0-37.0); Mean Corpuscular Hgb 30.8 pg (27.0-31.0); Mean Corpuscular Volume 94.3 fL (80.0-94.0); Mean Platelet Volume 10.1 fL (7.4-10.4); Platelet Count 176 10^3/uL (130-400); Red Blood Cell Count 3.18 10^6/uL (4.70-6.10); Red Cell Dist. Width 14.9 % (11.5-14.5); White Blood Cell Count 15.7 10^3/uL (4.8-10.8)
[2023-12-01 07:00] VITALS: BP 130/58
[2023-12-01] MEDS: ProAmatine 2.5 MG PO ×2 (08:56→11:35)
[2023-12-01] MEDS: VISBIOME 1 CAP PO (08:57)
[2023-12-01] MEDS: PLAQUENIL 200 MG PO (08:57)
[2023-12-01] MEDS: ZYLOPRIM 300 MG PO (08:57)
--- NOTE | 2023-12-01 09:05 | W.PN.UPDATE ---
Update Note
Progress Note Update
Discharge was again postponed yesterday due to insurance authorization issues.
Patient remained stable for discharge and seen and evaluated this morning on date of post discharge now November 30
Minimal if any diarrhea tolerating diet
No abdominal pain
Leukocytosis again trending down as expected
Continue vancomycin taper as outlined in discharge transcript
Please see my dictated discharge summary for further details
--- NOTE | 2023-12-01 09:29 | CM ---
Addendum entered by MARTA Lopez 12/01/23 10:58:
Patient's daughter updated by phone (Anne). She was agreeable to d/c. IMM completed and on chart. Transfer sheet and Medical necessity provided to [facility] planning director who set patient up for transport.
Addendum entered by MARTA Lopez 12/01/23 09:47:
Will update patient's daughter.
Original Note:
Received a voice mail message from Jeimy at [facility] who provided authorization for patient to transfer to [facility]. Level 1 start date 11/30-
12/12 NRD 12/13 with [employer] [phone]. Fax is [phone]. Auth number is [id number].
Placed a call to Rosamaria in admissions at [facility] to relay information. She stated that the #for report is [phone] and fax# [phone].
Will update RN and gun repair clerk. Discharge order in.
Plan: Case management will continue to follow and assist with discharge planning. D/C order in for patient to transfer to facility today.
[2023-12-01 11:00] VITALS: BP 109/50; BP 118/53; BP 130/56; PULSE 87; PULSE 88; PULSE 90
--- NOTE | 2023-12-01 11:14 | W.DCSUMMARY ---
Discharge Summary
Discharge Data
Date of Admission: 11/24/23
Date of Discharge: 12/01/23
-
Pending Results: Yes
Hospital Course
Please see dictated summary on discharge though scheduled for the November 29 and actually will now be on 30 November
No change in medication management and patient seen and evaluated and examined on date of this discharge considers medically stable for discharge
Discharge Plan
-
Patient Disposition: Care Home/SNF
Discharge Diagnosis/Procedures: C. difficile colitis
Pancolitis
Resolving leukocytosis
Acute kidney injury resolving
Hyponatremia resolved
Normal pressure hydrocephalus with gait dysfunction in need of eventual shunt placement
Diet: Regular
Activity: With Walker
Driving Restrictions: No driving
Activity Restrictions/Additional Instructions:
Vancomycin taper:
Vancomycin 125mg po q6H through 12/07/23
Vancomycin 125mg po q8H through 12/14/23
Vancomycin 125mg po q12H through 12/21/23
Vancomycin 125mg po q24H through 12/28/23
Vancomycin 125mg po qod through 01/11/24
Referrals:
Eron Gurrola MD [Family Provider] -
Lauren Perez MD [Active] - in two to three weeks
Additional Discharge Medication Instructions: Vancomycin taper:
Vancomycin 125mg po q6H through 12/07/23
Vancomycin 125mg po q8H through 12/14/23
Vancomycin 125mg po q12H through 12/21/23
Vancomycin 125mg po q24H through 12/28/23
Vancomycin 125mg po qod through 01/11/24
Prescriptions:
New
vancomycin [Firvanq] 50 mg/mL Recon Soln
125 mg PO Q6 Qty: 150 0RF
Continued
midodrine 5 mg Tablet
5 mg PO Q8H PRN (Reason: hypotensive episoide)
Rx Instructions:
hold for SBP <90
levothyroxine [Synthroid] 50 mcg Tablet
50 mcg PO DAILY AT 0700
allopurinol 300 mg Tablet
300 mg PO DAILY
hydroxychloroquine [Plaquenil] 200 mg Tablet
200 mg PO BID
cholecalciferol (vitamin D3) [Vitamin D3] 25 mcg (1,000 unit) Tablet
25 mcg PO DAILY
dfcnxwqjpred-oibzlkht-yovlze Tablet
1 tab PO DAILY
acetaminophen 325 mg Tablet
650 mg PO Q4H PRN (Reason: mild pain/temp>100F)
midodrine 2.5 mg Tablet
2.5 mg PO TID
Rx Instructions:
hold for SBP 130 or greater
mirtazapine [Remeron] 15 mg Tablet
7.5 mg PO QPM
guaifenesin [Lorena-Tussin] 100 mg/5 mL Liquid
300 mg PO Q6H PRN (Reason: cough)
Probiotic 3 billion cell capsule
6,000 mmu cells PO BID
Discontinued
magnesium hydroxide [Milk of Magnesia] 400 mg/5 mL Suspension
30 ml PO DAILY PRN (Reason: if no bm x 3 days)
bisacodyl [Dulcolax (bisacodyl)] 10 mg Suppository
10 mg IN DAILY PRN (Reason: if mom is ineffective after 24hrs)
Fleet Enema 19-7 gram/118 mL Enema
118 ml IN DAILY PRN (Reason: if dulcolax is ineffective after 24hrs)
Discharge Orders:
Discharge Patient (As Directed); Ordered 12/01/23
Ordered By: Chris Donohue
== END 2023-12-01 14:10 | DRG 872 ==
LOC: 3 WEST ACU 22:11
PROVIDERS: Clinical Nurse Specialist Family Health; Emergency Medicine; Hospitalist; ADMITTING PHYSICIAN Hospitalist; ATTENDING PHYSICIAN Internal Medicine; EMERGENCY PHYSICIAN Emergency Medicine; FAMILY PHYSICIAN Internal Medicine; OTHER PHYSICIAN Internal Medicine Infectious Disease
DX: A41.9 Sepsis, unspecified organism (principal); A04.71 Enterocolitis due to Clostridium difficile, recurrent; E87.1 Hypo-osmolality and hyponatremia; G91.2 (Idiopathic) normal pressure hydrocephalus; N17.9 Acute kidney failure, unspecified; F05 Delirium due to known physiological condition; E03.9 Hypothyroidism, unspecified; N18.30 Chronic kidney disease, stage 3 unspecified; E87.6 Hypokalemia; I12.9 Hypertensive chronic kidney disease with stage 1 through stage 4 chronic kidney disease, or unspecified chronic kidney disease; M10.9 Gout, unspecified; N40.0 Benign prostatic hyperplasia without lower urinary tract symptoms; M06.9 Rheumatoid arthritis, unspecified; L71.9 Rosacea, unspecified; R29.6 Repeated falls; D64.9 Anemia, unspecified; I95.89 Other hypotension; F03.90 Unspecified dementia, unspecified severity, without behavioral disturbance, psychotic disturbance, mood disturbance, and anxiety; E86.0 Dehydration; I45.10 Unspecified right bundle-branch block; R41.89 Other symptoms and signs involving cognitive functions and awareness; Z79.890 Hormone replacement therapy; Z11.52 Encounter for screening for COVID-19
CPT/HCPCS: 70450; 71046; 74176; 76770; 80048; 80053; 81003; 81015; 83605; 84484; 85025; 85027; 87040; 87045; 87046; 87070; 87086; 87150; 87205; 87324; 87427; 87449; 87502; 87798; 87811; 89055; 92610; 93005; 96361; 96374; 96375; 97163; 97167; 97530; 97535; 99285

== ENCOUNTER 2024-01-05 13:36 | Outpatient (RCR) | payer OTHER, SELFPAY ==
[2024-01-05] MEDS: ZINPLAVA 282 MG IV (14:27)
[2024-01-05 14:30] VITALS: BP 118/68
[2024-01-05 16:33] VITALS: BP 136/74
== END 2024-01-06 13:58 | disposition home or self-care (01) ==
LOC: OID 13:36
PROVIDERS: ATTENDING PHYSICIAN Internal Medicine Infectious Disease; FAMILY PHYSICIAN Internal Medicine
DX: A04.71 Enterocolitis due to Clostridium difficile, recurrent (principal)
CPT/HCPCS: 96365; J0565

== ENCOUNTER 2024-06-13 17:56 | Emergency (ER) | payer OTHER, SELFPAY ==
[2024-06-13 17:57] VITALS: BMI 20.3
[2024-06-13 17:58] VITALS: BP 121/57
[2024-06-13 18:00] VITALS: BP 121/57
[2024-06-13 18:18] LABS: % Basophils 0.5 % (0-2); % Eosinophils 2.2 % (0-6); % Immature Granulocytes 1.3 % (0-0.5); % Lymphocytes 13.7 % (20.5-51.1); % Neutrophils 75.3 % (42.2-75.2); Absolute Eosinophils 0.2 10^3/uL (0-0.7); Absolute Immature Granulocytes 0.1 10^3/uL (0-0.05); Absolute Lymphocytes 1.2 10^3/uL (1.2-3.4); Absolute Monocytes 0.6 10^3/uL (0.1-0.6); Absolute Neutrophils 6.4 10^3/uL (1.4-6.5); Hematocrit 34.5 % (39.0-52.0); Hemoglobin 11.2 g/dL (13.0-18.0); Mean Corp Hgb Conc. 32.5 g/dL (33.0-37.0); Mean Corpuscular Hgb 30.1 pg (27.0-31.0); Mean Corpuscular Volume 92.7 fL (80.0-94.0); Mean Platelet Volume 9.7 fL (7.4-10.4); Nucleated Red Blood Cells % 0 % (-); Platelet Count 272 10^3/uL (130-400); Red Blood Cell Count 3.72 10^6/uL (4.70-6.10); Red Cell Dist. Width 14.6 % (11.5-14.5); White Blood Cell Count 8.5 10^3/uL (4.8-10.8)
[2024-06-13 18:41] LABS: ALT (SGPT) 21 U/L (0-50); AST (SGOT) 34 U/L (17-59); Albumin 3.2 g/dl (3.5-5.0); Alkaline Phosphatase 150 U/L (38-126); Blood Urea Nitrogen 36 mg/dl (9-20); Calcium 9.1 mg/dl (8.4-10.2); Carbon Dioxide 26 mmol/L (22-30); Chloride 103 mmol/L (98-107); Estimated Creatinine Clearance 31 ml/min; Glucose 112 mg/dl (70-99); Potassium 4.4 mmol/L (3.5-5.1); Sodium 140 mmol/L (135-145); Total Bilirubin 0.4 mg/dl (0.2-1.3); Total Protein 6.2 g/dl (6.3-8.2); eGFR 41.19
[2024-06-13 19:00] VITALS: BP 107/58
[2024-06-13 20:00] VITALS: BP 110/64
[2024-06-13] MEDS: NSS 500 IV (21:16)
[2024-06-13 21:41] LABS: TSH Reflex To Free T4 5.39 uIU/ml (0.47-4.68)
[2024-06-13 22:00] VITALS: BP 99/49
[2024-06-13 22:11] LABS: Free T4 1.34 ng/dl (0.78-2.19)
--- NOTE | 2024-06-13 22:49 | ED.GENMED ---
History of Present Illness
General
Chief Complaint: Abnormal Lab Value
Source: patient
Exam Limitations: none
Time Seen by Provider: 06/13/24 20:02
Nursing documentation reviewed up to this point in time: agreed with
History of Present Illness
History of Present Illness:
88-year-old male with Anthony history of hypertension dementia presenting to the emergency department from [facility] with concerns of an elevated creatinine level of 1.5. Family also concerned that he seems somewhat more sleepy than usual. He
denies any specific concerns while here no specific chest pain shortness of breath nausea vomiting numbness weakness.
Past History
Past History
ED Past Medical History: HTN, Hypothyroidism, Other (Gout, mild cognitive impairment, rheumatoid arthritis, rosacea, BPH) and Other (BPH)
ED Past Surgical History: Cholecystectomy, Orthopedic (Left knee surgery) and Other (Cataracts)
Social History
Tobacco: Non-smoker
Alcohol: None
Personal:
Living: snf ([facility])
Family History
Family History: Other (reviewed and non-contributory)
Review of Systems
Review of Systems
Allergies reviewed?: Yes
Unable to obtain full review of systems at this time due to: dementia
All Other Systems: ROS reviewed and negative except as documented in HPI and ROS
Phy Exam
Physical Exam
Physical Exam:
GENERAL: Alert , in no apparent distress
EYE: pupils equal and reactive
NECK: Supple, no significant adenopathy.
ENT: Small scrape to the front of the forehead very superficial no tenderness no neck pain o/p clr, mmm.
CARDIAC: Regular rate and rhythm .
LUNGS: Clear breath sounds bilaterally, no acute respiratory distress, no wheezes/rales/rhonchi
ABDOMEN: Soft, without focal tenderness, no r/g, no cvat
NEUROLOGICAL: Alert oriented to place and person but not time, no focal neuro deficits 5 out of 5 upper and lower extremity strength.
SKIN: Warm and dry, skin intact.
MUSCULOSKELETAL: No edema, well perfused.
PSYCH: Normal and appropriate interaction.
Course
Orders/Labs/Results
Orders:
Orders
06/13/24 18:08
Complete Blood Count/With Diff Urgent
Comprehensive Metabolic Panel Urgent
Free T4 Urgent
TSH Reflex To Free T4 Urgent
Comment: ADD ON
06/13/24 20:29
Add On- LAB Urgent
Tests Added?: tsh free t4
CT Head W/o Iv Contrast Urgent
Comment:
Reason For Exam: fallhit head
Urinalysis Reflex To Culture Urgent
0.9% Sodium Chloride 500 ml [Nss] 500 ml IV BOLUS
06/13/24 20:30
EKG [Electrocardiogram (*1)] Urgent
Reason for Study: Fatigue / Weakness
EKG- Treatment ONCE
Abnormal Lab Results
06/13/24
18:08
RBC 3.72 L 10^6/uL
(4.70-6.10)
Hgb 11.2 L g/dL
(13.0-18.0)
Hct 34.5 L %
(39.0-52.0)
MCHC 32.5 L g/dL
(33.0-37.0)
RDW 14.6 H %
(11.5-14.5)
Abs Immat Gran (auto) 0.1 H 10^3/uL
(0-0.05)
Immature Gran % 1.3 H %
(0-0.5)
Neutrophils % 75.3 H %
(42.2-75.2)
Lymphocytes % 13.7 L %
(20.5-51.1)
BUN 36 H mg/dl
(9-20)
Creatinine 1.6 H mg/dL
(0.7-1.3)
Glucose 112 H mg/dl
(70-99)
Alkaline Phosphatase 150 H U/L
(38-126)
Total Protein 6.2 L g/dl
(6.3-8.2)
Albumin 3.2 L g/dl
(3.5-5.0)
TSH (Reflex) 5.39 H uIU/ml
(0.47-4.68)
06/13/24 18:08
06/13/24 18:08
Vital Signs
Initial and Last Documented VS:
Initial Vital Signs
Temp Pulse Resp BP Pulse Ox
98.3 F 86 13 121/57 97
06/13/24 17:58 06/13/24 17:58 06/13/24 17:58 06/13/24 17:58 06/13/24 17:58
Last Documented Vital Signs
Temp Pulse Resp BP Pulse Ox
98.3 F 86 18 110/64 98
06/13/24 17:58 06/13/24 21:45 06/13/24 21:45 06/13/24 20:00 06/13/24 21:45
MDM/Problems Addressed
MDM/Problems Addressed:
88-year-old male presenting to the emergency department today with concerns of creatinine level 1.85. He had this done as an outpatient. He has had multiple elevated levels in the past with previous hospital stays. Baseline seems to be at lowest
1.21.3. Here repeated 1.6. Does not seem to be an emergent level for the patient. Smallman of diarrhea earlier today but no ongoing diarrhea is tolerating by mouth very unlikely represent significant JACQUELIN today. Patient does appear to have a
small lesion to his head may have had a fall. CT scan of the head was performed which was normal. EKG performed that did not show acute abnormalities. Patient with no concerns throughout ER stay stable for discharge at this time. Advised for
close outpatient follow-up.
*Critical Care Note
Total Time (30-74mins, 75-104mins- exclusive of procedures): Not Applicable
ED Attending Note
-
Portions of this chart may have been created with voice recognition software.� Occasional wrong word or��sound alike� substitutions may have occurred due to the inherent limitations of voice recognition software.
Discharge Plan
Departure
Patient Disposition: Home (Routine Discharge)
Date of Disposition: 06/13/24
Time of Disposition: 23:13
Patient with high blood pressure during this ER visit?: No
Condition: Good
Covid-19: Not Applicable
Discharge Problem:
Abnormal laboratory test
Instructions: Chronic kidney disease
Prescriptions:
No Action
levothyroxine [Synthroid] 50 mcg Tablet
50 mcg PO DAILY AT 0700
allopurinol 300 mg Tablet
300 mg PO DAILY
hydroxychloroquine [Plaquenil] 200 mg Tablet
200 mg PO BID
cholecalciferol (vitamin D3) [Vitamin D3] 25 mcg (1,000 unit) Tablet
25 mcg PO DAILY
jfrtfzclfjak-qbbjojje-dgwpvk Tablet
1 tab PO DAILY
acetaminophen 325 mg Tablet
650 mg PO Q4HPRN PRN (Reason: mild pain/temp>100F)
mirtazapine [Remeron] 15 mg Tablet
7.5 mg PO HS
guaifenesin [Lorena-Tussin] 100 mg/5 mL Liquid
300 mg PO Q6HPRN PRN (Reason: cough)
Probiotic 3 billion cell capsule
6,000 mmu cells PO BID
magnesium hydroxide [Milk of Magnesia] 400 mg/5 mL Suspension
30 ml PO DAILYPRN PRN (Reason: if no bm x 3 days)
bisacodyl [Dulcolax (bisacodyl)] 10 mg Suppository
10 mg IN DAILYPRN PRN (Reason: if mom is ineffective after 24hrs)
Fleet Enema 19-7 gram/118 mL Enema
118 ml IN DAILYPRN PRN (Reason: if dulcolax is ineffective after 24hrs)
Referrals:
Eron Gurrola MD [Family Provider] -
Activity Restrictions/Additional Instructions:
You came to the emergency department today initially with concerns of an abnormal lab. Here your creatinine level was 1.6 and BUN is 36. You have had similar levels in the past. Please stay hydrated and have this level repeated in the next week
or so to ensure this is not worsening. Otherwise he had a head CT which did not show any emergent findings and EKG that was unchanged. Please follow closely as an outpatient with your primary care doctor for further ongoing evaluation.
Interventions
Interventions:
*Risk Screen - Suicide Last Done: 06/13/24 17:58
*General Assessment Last Done: 06/13/24 17:58
*Neglect/Abuse Screening Last Done: 06/13/24 17:58
ED- Fall Risk Assessment Last Done: 06/13/24 19:05
Discharge Date and Time
Print Language: DIVEHI
[2024-06-13 23:00] VITALS: BP 110/55
[2024-06-14 03:27] VITALS: BP 124/57
[2024-06-14 04:00] VITALS: BP 101/60
[2024-06-14 05:06] VITALS: BP 128/49
== END 2024-06-14 05:54 | disposition home or self-care (01) ==
LOC: EMR 17:56
PROVIDERS: Emergency Medicine; EMERGENCY PHYSICIAN Emergency Medicine; FAMILY PHYSICIAN Internal Medicine
DX: R79.89 Other specified abnormal findings of blood chemistry (principal); I10 Essential (primary) hypertension; F03.90 Unspecified dementia, unspecified severity, without behavioral disturbance, psychotic disturbance, mood disturbance, and anxiety; E03.9 Hypothyroidism, unspecified; M06.9 Rheumatoid arthritis, unspecified; N40.0 Benign prostatic hyperplasia without lower urinary tract symptoms; Z90.49 Acquired absence of other specified parts of digestive tract
CPT/HCPCS: 99284; 70450; 80053; 84439; 84443; 85025; 93005

== ENCOUNTER 2024-06-27 02:57 | Inpatient (IN) | payer OTHER, SELFPAY ==
[2024-06-26 22:31] VITALS: BP 133/88; BMI 19.3
[2024-06-26 22:51] VITALS: BP 124/66
[2024-06-26 23:06] LABS: % Basophils 0.3 % (0-2); % Eosinophils 0.6 % (0-6); % Immature Granulocytes 0.6 % (0-0.5); % Lymphocytes 3.4 % (20.5-51.1); % Monocytes 4.3 % (1.7-9.3); % Neutrophils 90.8 % (42.2-75.2); Absolute Basophils 0.1 10^3/uL (0-0.2); Absolute Eosinophils 0.1 10^3/uL (0-0.7); Absolute Immature Granulocytes 0.1 10^3/uL (0-0.05); Absolute Lymphocytes 0.6 10^3/uL (1.2-3.4); Absolute Monocytes 0.7 10^3/uL (0.1-0.6); Absolute Neutrophils 15.6 10^3/uL (1.4-6.5); Hematocrit 36.2 % (39.0-52.0); Hemoglobin 11.6 g/dL (13.0-18.0); Mean Corpuscular Hgb 29.3 pg (27.0-31.0); Mean Corpuscular Volume 91.4 fL (80.0-94.0); Mean Platelet Volume 9.7 fL (7.4-10.4); Nucleated Red Blood Cells % 0 % (-); Platelet Count 238 10^3/uL (130-400); Red Blood Cell Count 3.96 10^6/uL (4.70-6.10); White Blood Cell Count 17.2 10^3/uL (4.8-10.8)
[2024-06-26 23:18] LABS: Lactic Acid 3.4 mmol/L (0.7-2.0)
[2024-06-26 23:19] LABS: ALT (SGPT) 24 U/L (0-50); AST (SGOT) 38 U/L (17-59); Alkaline Phosphatase 160 U/L (38-126); Blood Urea Nitrogen 41 mg/dl (9-20); Calcium 9.7 mg/dl (8.4-10.2); Carbon Dioxide 23 mmol/L (22-30); Chloride 102 mmol/L (98-107); Estimated Creatinine Clearance 22 ml/min; Glucose 172 mg/dl (70-99); Potassium 4.3 mmol/L (3.5-5.1); Sodium 142 mmol/L (135-145); Total Bilirubin 0.5 mg/dl (0.2-1.3); Total Protein 6.6 g/dl (6.3-8.2); eGFR 29.72
[2024-06-26 23:23] LABS: Albumin 3.4 g/dl (3.5-5.0)
[2024-06-27] VITALS (48 sets, daily range): BP systolic 82–159; BP diastolic 38–102; BMI 19.4
[2024-06-27] MEDS: ROCEPHIN 2000 MG IV (00:15)
[2024-06-27] MEDS: NSS 1000 IV (00:15)
[2024-06-27] MEDS: ZITHROMAX INFUSION 250 IV ×2 (00:16→23:35)
[2024-06-27] MEDS: TYLENOL ORAL SOLUTION 650 MG PO (00:33)
--- NOTE | 2024-06-27 01:25 | ED.GENMED ---
History of Present Illness
General
Chief Complaint: Breathing Problem
Source: patient and family
Exam Limitations: dementia
Time Seen by Provider: 06/26/24 22:55
Nursing documentation reviewed up to this point in time: agreed with
History of Present Illness
History of Present Illness:
88-year-old male presenting to the emergency department today with concerns of shortness of breath and recent diagnosis of pneumonia. He is also been more fatigued than usual.
Past History
Past History
ED Past Medical History: HTN, Hypothyroidism, Other (Gout, mild cognitive impairment, rheumatoid arthritis, rosacea, BPH) and Other (BPH)
ED Past Surgical History: Cholecystectomy, Orthopedic (Left knee surgery) and Other (Cataracts)
Social History
Tobacco: Non-smoker
Alcohol: None
Personal:
Living: shelter ([facility])
Family History
Family History: Other (reviewed and non-contributory)
Review of Systems
Review of Systems
Allergies reviewed?: Yes
All Other Systems: ROS reviewed and negative except as documented in HPI and ROS
Phy Exam
Physical Exam
Physical Exam:
GENERAL: Alert , in no apparent distress
EYE: pupils equal and reactive
NECK: Supple, no significant adenopathy.
ENT: o/p clr, mmm.
CARDIAC: Regular rate and rhythm .
LUNGS: Rhonchi to right lower lobe otherwise clear breath sounds bilaterally, no acute respiratory distress, no wheezes
ABDOMEN: Soft, without focal tenderness, no r/g, no cvat
NEUROLOGICAL: Alert and oriented, no focal neuro deficits
SKIN: Warm and dry, skin intact.
MUSCULOSKELETAL: No edema, well perfused.
PSYCH: Normal and appropriate interaction.
Scores
Heart Failure Risk
Heart Failure Risk Score: Not Applicable
Sepsis
Sepsis Screening
Sepsis Assessment: Severe Sepsis
Sepsis Screening: Lactate >2mmol/L, Hypotension, ARF-Creatinine >2.0 and Sustained Hypotension-SBP <90,MAP<65, or SBP decrease 40mmHg or more
Sepsis Screen
Sepsis Screen: Severe Sepsis
Date: 06/27/24
Time: 01:28
Course
Orders/Labs/Results
Orders:
Orders
06/26/24 22:56
Electrocardiogram (*1) Urgent
Reason for Study: Other
Other Reason for Exam: Possible Sepsis
Cardiac Monitoring- Treatment ONCE
IV Insert/Care/Rem.- Treatment PRN
O2 Therapy [RESP] Urgent
Titrate/Wean O2 to maintain O2 sat greater than (%): 93
Special Instructions: TO MAINTAIN CONTINUOUS O2 SATS > OR = 93%
Pulse Ox/cont/shift [RESP] Urgent
Quantity: 1
Special Instructions: CONTINUOUS
06/26/24 22:57
EKG- Treatment ONCE
CR Chest - 2 Views Urgent
Comment:
Reason For Exam: suspected infection
06/26/24 22:58
Complete Blood Count/With Diff Urgent
Comprehensive Metabolic Panel Urgent
Lactic Acid Q4H
Comment: ON ICE, CANCEL 2ND ORDER IF FIRST LACTIC ACID LEVEL <2
06/27/24 00:07
Azithromycin 500 mg/250 ml [Zithromax Infusion] 500 mg in 250 ml IV NOW
CefTRIAXone [Rocephin] 2,000 mg IV NOW STA
06/27/24 00:08
Acetaminophen [Tylenol] 650 mg PO NOW STA
06/27/24 00:09
0.9% Sodium Chloride 1000 ml [Nss] 1,000 ml IV BOLUS
06/27/24 00:12
Sterile Water [Sterile Water For Injection] 20 ml .ROUTE .STK-MED
06/27/24 00:29
Acetaminophen [Tylenol Suspension] 500 mg PO NOW STA
06/27/24 00:31
Acetaminophen [Tylenol Oral Solution] 650 mg .ROUTE .STK-MED ONE
06/27/24 00:33
Acetaminophen [Tylenol Oral Solution] 650 mg PO NOW STA
06/27/24 03:00
Lactic Acid Q4H
Comment: ON ICE, CANCEL 2ND ORDER IF FIRST LACTIC ACID LEVEL <2
Abnormal Lab Results
06/26/24
22:58
WBC 17.2 H 10^3/uL
(4.8-10.8)
RBC 3.96 L 10^6/uL
(4.70-6.10)
Hgb 11.6 L g/dL
(13.0-18.0)
Hct 36.2 L %
(39.0-52.0)
MCHC 32.0 L g/dL
(33.0-37.0)
RDW 15.0 H %
(11.5-14.5)
Abs Immat Gran (auto) 0.1 H 10^3/uL
(0-0.05)
Absolute Neuts (auto) 15.6 H 10^3/uL
(1.4-6.5)
Absolute Lymphs (auto) 0.6 L 10^3/uL
(1.2-3.4)
Absolute Monos (auto) 0.7 H 10^3/uL
(0.1-0.6)
Immature Gran % 0.6 H %
(0-0.5)
Neutrophils % 90.8 H %
(42.2-75.2)
Lymphocytes % 3.4 L %
(20.5-51.1)
BUN 41 H mg/dl
(9-20)
Creatinine 2.1 H mg/dL
(0.7-1.3)
Glucose 172 H mg/dl
(70-99)
Lactic Acid 3.4 H mmol/L
(0.7-2.0)
Alkaline Phosphatase 160 H U/L
(38-126)
Albumin 3.4 L g/dl
(3.5-5.0)
06/26/24 22:58
06/26/24 22:58
Vital Signs
Initial and Last Documented VS:
Initial Vital Signs
Temp Pulse Resp BP Pulse Ox
100.5 F H 104 26 133/88 96
06/26/24 22:31 06/26/24 22:31 06/26/24 22:31 06/26/24 22:31 06/26/24 22:31
Last Documented Vital Signs
Temp Pulse Resp BP Pulse Ox
100.5 F H 98 27 124/66 95
06/26/24 22:31 06/26/24 23:30 06/26/24 23:30 06/26/24 22:51 06/26/24 23:30
MDM/Problems Addressed
MDM/Problems Addressed:
88-year-old male presenting to the emergency department with concerns of pneumonia. Here he was confirmed to have pneumonia on her chest x-ray with right lower lobe consolidation. He was slightly febrile though improving after receiving Tylenol
here. White count of 17 which showed elevated lactic acid. Patient was started on fluids and given IV antibiotics. Stable in the ER had slight lowering of blood pressure but improving after receiving fluids.
*Critical Care Note
Total Time (30-74mins, 75-104mins- exclusive of procedures): Not Applicable
ED Attending Note
-
Portions of this chart may have been created with voice recognition software.� Occasional wrong word or��sound alike� substitutions may have occurred due to the inherent limitations of voice recognition software.
Discharge Plan
Departure
Patient Disposition: Admit
Date of Disposition: 06/27/24
Time of Disposition: 01:27
Admit to: Med/Surg
Admit to doctor: Una
Presentation/result/management discussed w/ accepting MD/DO: Hospitalist
Patient with high blood pressure during this ER visit?: No
Condition: Fair
Covid-19: Not Applicable
Discharge Problem:
Pneumonia involving right lung
Prescriptions:
No Action
levothyroxine [Synthroid] 50 mcg Tablet
50 mcg PO DAILY AT 0700
allopurinol 300 mg Tablet
300 mg PO DAILY
hydroxychloroquine [Plaquenil] 200 mg Tablet
200 mg PO BID
cholecalciferol (vitamin D3) [Vitamin D3] 25 mcg (1,000 unit) Tablet
25 mcg PO DAILY
rtrkbldpvjrw-snyehjeo-lmdohq Tablet
1 tab PO DAILY
acetaminophen 325 mg Tablet
650 mg PO Q4HPRN PRN (Reason: mild pain/temp>100F)
mirtazapine [Remeron] 15 mg Tablet
7.5 mg PO HS
Probiotic 3 billion cell capsule
6,000 mmu cells PO BID
magnesium hydroxide [Milk of Magnesia] 400 mg/5 mL Suspension
30 ml PO DAILYPRN PRN (Reason: if no bm x 3 days)
bisacodyl [Dulcolax (bisacodyl)] 10 mg Suppository
10 mg NM DAILYPRN PRN (Reason: if mom is ineffective after 24hrs)
Fleet Enema 19-7 gram/118 mL Enema
118 ml NM DAILYPRN PRN (Reason: if dulcolax is ineffective after 24hrs)
Santyl 250 unit/gram Ointment
1 applic TOPICAL DAILY
Rx Instructions:
sacrum
Referrals:
Mahesh Chu MD [Family Provider] -
Interventions
Interventions:
*Risk Screen - Suicide Last Done: 06/26/24 22:31
*General Assessment Last Done: 06/26/24 22:31
*Neglect/Abuse Screening Last Done: 06/26/24 22:31
*ED COVID-19 Vaccine History Last Done: 06/26/24 22:31
Discharge Date and Time
Print Language: MAORI
--- NOTE | 2024-06-27 02:45 | HPS.HSE ---
Family Physician
-
Family Physician: Mahesh Chu MD
Chief Complaint
-
Shortness of breath
History of Present Illness
Patient sent to the emergency department for concerns for pneumonia. Unable to obtain history from patient and as he is quite somnolent on my examination. He is arousable and mitten and interactive but unable to provide history.
Patient is a 88-year-old with past medical history that is significant for gout, hypothyroid, arthritis on Plaquenil, CKD who presents to the emergency department from [facility]. It appears that they already did an x-ray which showed a right
lower lobe infiltrates today. Patient apparently has been started on some amoxicillin per day records.
He was slightly febrile on arrival in the emergency department. The rest of the vitals were relatively stable with a BP of 97/40 temperature of 99.8 pulse in the 80s and oxygen saturation was 94%. However while in the ED his blood pressure did dip
to the 80s systolic. Chest x-ray confirmed the right lower lobe infiltrate. He had leukocytosis of 17,000 hemoglobin and platelet counts were unchanged. Chemistries notable for JACQUELIN with a creatinine of 2.1 which is up from 1.6 earlier. Directed
electrolytes were within normal limits. Lactic acid was elevated at 3.4.
Medical History
Past Medical History
Past Medical History: Reports Other
Additional Past Medical History:
Gout,
hypertension,
Rheumatoid arthritis
Hypothyroid
Past Surgical History: Reports Other
Social History
Tobacco: Non-smoker
Alcohol: None
Drug: None
Personal:
Living: Custodial
Employment: Retired
Family History
Family History: Not pertinent
Allergies / Home Medications
Allergies reflects when Allergies were last updated in copygram.
Home Medications with original date entered in copygram
Allergy/Medication List:
Allergies
Allergy/AdvReac Type Severity Reaction Status Date / Time
Sulfa (Sulfonamide Allergy Unknown Unknown Verified 06/27/24 00:08
Antibiotics)
sulfamethoxazole Allergy Unknown Unknown Verified 06/27/24 00:08
[From Bactrim]
trimethoprim [From Bactrim] Allergy Unknown Unknown Verified 06/27/24 00:08
Home Medications
allopurinol 300 mg tablet 300 mg PO DAILY Gout 10/13/23
cholecalciferol (vitamin D3) 25 mcg (1,000 unit) tablet (Vitamin D3) 25 mcg PO DAILY Supplement 10/13/23
hydroxychloroquine 200 mg tablet (Plaquenil) 200 mg PO BID Rheumatoid arthritis 10/13/23
levothyroxine 50 mcg tablet (Synthroid) 50 mcg PO DAILY AT 0700 Thyroid 10/13/23
dpknsqrqvkpr-viwxyylh-nrcdmg tablet 1 tab PO DAILY Supplement 10/18/23
acetaminophen 325 mg tablet 650 mg PO Q4HPRN PRN mild pain/temp>100F 11/03/23
mirtazapine 15 mg tablet (Remeron) 7.5 mg PO HS Mental Health/Anxiety 11/03/23
lactobacillus combination no.4 3 billion cell capsule (Probiotic) 6,000 mmu cells PO BID Supplement 11/24/23
bisacodyl 10 mg rectal suppository (Dulcolax (bisacodyl)) 10 mg MD DAILYPRN PRN if mom is ineffective after 24hrs 06/13/24
magnesium hydroxide 400 mg/5 mL oral suspension (Milk of Magnesia) 30 ml PO DAILYPRN PRN if no bm x 3 days 06/13/24
sodium phosphates 19 gram-7 gram/118 mL enema (Fleet Enema) 118 ml MD DAILYPRN PRN if dulcolax is ineffective after 24hrs 06/13/24
collagenase clostridium histo. 250 unit/gram topical ointment (Santyl) 1 applic topical DAILY 06/27/24
Review of Systems
-
Unable to obtain full review of systems at this time due to: Acuity
Physical Exam
Vital Signs
Vital Signs
Temp Pulse Resp BP Pulse Ox
99.8 F 82 23 97/40 94
06/27/24 01:51 06/27/24 01:45 06/27/24 01:45 06/27/24 01:45 06/27/24 01:45
Physical Exam
General: No Apparent Distress and Comfortable
HEENT: NormoCephalic, Anicteric, Atraumatic, PERRLA and Oxygen
Respiratory: Clear
Cardiac: S1/S2 and Regular Rhythm
Breast: Deferred by me
GI: Soft, Non Tender, Non Distended and Organomegaly
Rectal: Deferred by Provider
Genito-urinary: Deferred by me
Musculoskeletal: No Clubbing, No Cyanosis and No Edema
Skin: Warm
Neuro: Other (Somnolent but arousable, GCS is 10. No focal deficits.)
Hematologic/Lymphatic: No Lymphadenopathy
Laboratory Results
-
06/26/24 22:58
06/26/24 22:58
Laboratory Results
Lactic Acid 3.4 mmol/L (0.7-2.0) H 06/26/24 22:58
Total Bilirubin 0.5 mg/dl (0.2-1.3) 06/26/24 22:58
AST 38 U/L (17-59) 06/26/24 22:58
ALT 24 U/L (0-50) 06/26/24 22:58
Alkaline Phosphatase 160 U/L (38-126) H 06/26/24 22:58
Data Reviewed
-
Diagnostic Radiology: Image Personally Visualized and interpreted and Report Reviewed by me
Lab Data: Labs Reviewed by me
Old Records: Reviewed
Impression/Plan
-
IMPRESSION:
88 y.o male with right lower lobe pneumonia, hypoxia requiring 4 L, elevated lactic acid, borderline hypotension with a MAP of around 60.
PLAN:
1. Pneumonia - Sepsis, high risk of decompensation. No coughing or wheezing for me. ? aspiration
- admit to IMU due to hypotension/sepsis. MAPs currently 60.
- IV fluid resuscitation, 1.5 L total, trending lactate, goal MAP > 60 with levophed
- blood cultures
- IV ceftriaxone and azithromycin, will check ecg in am for QT as patient on plaquinel
- supportive care
- speech/swallow eval in am
2. RA
- continue Plaquenil bid, check qtc in am
3. JACQUELIN - Creatinine 2.1, BUN 41. Significantly elevated and suspect pre-renal but cannot rule out ATN
- IV fluids for now, no signs of fluid overload
- monitor uop
- renal dose meds and avoid nephrotoxins
4. Hypothyroid
- continue levothyroxine
DVT PPX - heparin sq q 8
Code Status - Full Code
[2024-06-27] MEDS: NSS 500 IV ×4 (03:20→19:53)
[2024-06-27 03:48] LABS: Lactic Acid 2.1 mmol/L (0.7-2.0)
[2024-06-27 05:13] LABS: Hematocrit 28.2 % (39.0-52.0); Hemoglobin 9.4 g/dL (13.0-18.0); Mean Corp Hgb Conc. 33.3 g/dL (33.0-37.0); Mean Corpuscular Hgb 30.2 pg (27.0-31.0); Mean Corpuscular Volume 90.7 fL (80.0-94.0); Mean Platelet Volume 9.6 fL (7.4-10.4); Platelet Count 192 10^3/uL (130-400); Red Blood Cell Count 3.11 10^6/uL (4.70-6.10); Red Cell Dist. Width 15.1 % (11.5-14.5); White Blood Cell Count 12.8 10^3/uL (4.8-10.8)
--- NOTE | 2024-06-27 05:59 | PTCARENOTE ---
Received pt from ED RN. Pt pulled over from the stretcher. Pt is AAOx1 (self), lethargic/drowsy, confused/forgetful, ATQASUK. NSR w/ BBB on the monitor. On 2L NC O2 sat 97%, lungs diminished. C/c in place. Wound care documented (see worklist). NS
infusing @ 75 ml/hr. CHG bath provided. Pt is laying in bed with call campo in reach.
[2024-06-27] MEDS: LEVOPHED 250 IV (06:25)
--- NOTE | 2024-06-27 06:35 | PTCARENOTE ---
RAEANN Childers notified for BP 93/38 (55), Levo gtt ordered (see worklist).
[2024-06-27 07:15] LABS: Lactic Acid 1.8 mmol/L (0.7-2.0)
[2024-06-27 07:22] LABS: Blood Urea Nitrogen 37 mg/dl (9-20); Calcium 8.8 mg/dl (8.4-10.2); Carbon Dioxide 23 mmol/L (22-30); Chloride 112 mmol/L (98-107); Estimated Creatinine Clearance 26 ml/min; Glucose 120 mg/dl (70-99); Potassium 4.2 mmol/L (3.5-5.1); Sodium 145 mmol/L (135-145); eGFR 35.76
--- NOTE | 2024-06-27 08:35 | PTOTSP ---
Speech Language Pathology
Pt seen for clinical bedside swallow evaluation. P.O. trials of thin liquids and mildly thick liquids provided. Frequent wet coughing noted with thin liquids. Question aspiration. Pt with current RLL PNA.
Recommend:
(1) VSE
(2) NPO until VSE completed
(3) Oral care 4x/day with suctioning as needed
(4) Allow ice chips post oral care given supervision per Aspiration Risk Hydration Protocol (ARHP)
(5) DIVISION CHAIR to continue to follow
--- NOTE | 2024-06-27 08:57 | W.PN.HOSP.TC ---
Today's Communication/Plan
-
N.p.o.
Video swallowing study
Wean Levophed
Assessment / Plan
Assessment / Plan
Gen-awake, alert, confused, NAD
HEENT-NC, AT, anicteric, clear oral mm
Neck-supple
CV-reg, no M, +S1/S2
Lungs-clear B/L
Abd-soft, NT, ND
Ext-no edema
Musculoskeletal-no cyanosis, clubbing
Skin-warm and dry
Neuro-grossly non-focal
Psych-calm, cooperative
Acute hypoxic respiratory insufficiency -due to aspiration pneumonia. Currently on 2 L nasal cannula oxygen. Chest x-ray shows right lower lobe infiltrate on my read, official report pending.
Sepsis due to right lower lobe aspiration pneumonia -continue antibiotics. Suspect etiology of pneumonia due to dysphagia induced aspiration. Leukocytosis improved. Afebrile this morning. Blood cultures not sent on admission.
Lactic acidosis due to sepsis, resolved.
Dysphagia -unknown acuity but suspect chronic. Discussed with speech therapist, video swallowing study ordered. Keep n.p.o. for now.
JACQUELIN on CKD 3A -suspect JACQUELIN due to volume depletion. Creatinine down overnight. Continue IV fluids for now.
Gout
Essential hypertension -hypotensive on arrival requiring low-dose Levophed. Blood pressure now improved. Not on antihypertensives prior to admission. It is noted on prior hospitalization in November of this year that blood pressure tends to run low
and he was discharged on midodrine 3 times daily. Unclear if he was still on this medication prior to admission.
Rheumatoid arthritis -on Plaquenil.
Hypothyroidism -continue Synthroid.
Normal pressure hydrocephalus -with related dementia. It was recommended to family to follow-up with neurosurgery as an outpatient back in November of this year for opinion on shunting, but they have not done so so far. Discussed with family.
Chronic anemia -hemoglobin near baseline. Follow-up as outpatient.
History of severe C. difficile colitis -November 2023.
Full code
Updated daughter Gaby on the phone. We discussed goals of care and end-of-life care in light of his advanced age, dementia, dysphagia. Daughter states that her father would not want artificial nutrition including a PEG tube. I brought up the
issue that if he fails the video swallowing study I would recommend hospice. I also recommend changing CODE STATUS to DNR. She understands but wants to speak with family regarding CODE STATUS. Will await the results of the video swallowing study.
Anticipated Discharge: > 48 hours
Subjective/Interval History
-
Date of Service: June 27, 2024
Patient seen and examined. No complaints.
Objective Data
-
Labs:
Laboratory Results
06/26/24 06/27/24 06/27/24
22:58 04:54 06:47
WBC 17.2 H 12.8 H
Hgb 11.6 L 9.4 L
Hct 36.2 L 28.2 L
Plt Count 238 192
Sodium 142 Cancelled 145
Potassium 4.3 Cancelled 4.2
Chloride 102 Cancelled 112 H
Carbon Dioxide 23 Cancelled 23
BUN 41 H Cancelled 37 H
Creatinine 2.1 H Cancelled 1.8 H
Glucose 172 H Cancelled 120 H
Calcium 9.7 Cancelled 8.8
Total Bilirubin 0.5
AST 38
ALT 24
Alkaline Phosphatase 160 H
Vital Signs:
Vital Signs
Temp Pulse Resp BP Pulse Ox
97.9 F 86 25 139/60 95
06/27/24 07:56 06/27/24 07:11 06/27/24 07:11 06/27/24 07:11 06/27/24 07:11
I&O
06/26/24 06/27/24 06/28/24
06:59 06:59 06:59
Intake Total 225 / 225
Balance 225 / 225
Review of Systems
-
Unable to obtain full review of systems at this time due to: Acuity
History Source: Patient
All other systems: Reviewed and negative
[2024-06-27] MEDS: SANTYL OINTMENT 1 APPLIC TOPICAL (09:32)
[2024-06-27] MEDS: HEPARIN 5000 UNITS SC ×3 (09:32→23:26)
--- NOTE | 2024-06-27 10:45 | PTOTSP ---
Speech Language Pathology
VIDEOFLUOROSCOPIC SWALLOWING EXAMINATION (VSE) completed. Overall, pt with severe pharyngeal dysphagia with silent aspiration of all textures trialed. Significant pharyngeal residue also noted.
Recommend:
(1) NPO
(2) GOC discussion
(3) Oral care 4x/day with suctioning as needed
(4) Allow ice chips post oral care given supervision per Aspiration Risk Hydration Protocol (ARHP)
(5) SHOE REPAIRER HELPER to continue to follow
--- NOTE | 2024-06-27 11:35 | PTCARENOTE ---
Assumed care of patient this morning. He is oriented x2. He has occasional confusion and forgetfulness. Speech therapy saw patient this morning, made NPO and ordered VSE, which patient was taken to by RN as pt still on Levo, now on 1 mcg/min,
weaning as able. Pt is on 2L NC with coarse crackles on auscultation. He has a moist, nonproductive cough. Pt asks for something to drink frequently, attempt at educating about NPO status but patient needs reinforcement. Oral care performed. Ice
chips given per aspiration risk hydration, protocol. Family at bedside and updated per RN ability. Assessment, care and VS as charted.
--- NOTE | 2024-06-27 12:10 | CM ---
Addendum entered by Amparo Silveira RN 06/27/24 14:24:
CM Consult: Hospice
Met with patient, patient's Anne and daughter Anne.
Patient was drowsy and did not awaken, however wanted to talk away from patient.
Met with patient's Anne and daughter Anne in [facility];
explained hospice philosophy & benefits - has familiarity with hospice from another family member.
and daughter agree to meeting with Hospice nurse.
There are 2 more daughters here including daughter Gaby who is primary contact, however they stepped off the unit.
Referral to [facility].
Plan follow up after seen by Hospice.
Original Note:
Patient from [facility] with Dx Acute hypoxic respiratory insufficiency & sepsis due to aspiration pneumonia, dysphagia, JACQUELIN. O2 2L. Receiving IV Abx, Levophed gtt, IVF. NPO, VSE ordered. Per nurse assessment; oriented x2, occasional confusion
and forgetfulness. PT Eval pending.
Spoke with Jeimy, Law Yoo;
the patient was transferred from [facility] to [facility] a few weeks ago for half-way care, and he is on an MA bed hold.
He was A/O x2, incontinent bowel & bladder.
Patient requires assist of 1 for all ADLs.
He transfers sit to stand lift with assist of 2.
He is non-ambulatory, w/c bound.
The patient was on a regular texture thin liquid diet.
If PT recommends skilled rehab, will need insurance auth for return to SNF.
Plan follow patient's ability to eat.
Plan return to [facility] when medically ready.
--- NOTE | 2024-06-27 13:25 | WOUNDNOTE ---
[facility] RN note: Patient admitted with pneumonia.
See H&P for complete history. [facility].
PMH: HTN,RA,BPH, Gout, and Rosacea.
Wound Location and type/assessment: Patient admitted with: L lateral ankle red maroon non blanchable discolored skin. Patient had legs crossed at ankles during assessment, suspect reason for red mesfin. Appears to be an evolving DTI vs Stage 1 PI.
Heels are boggy stage 1 PI, foams were in use. Turned patient with assist from nurse Dial. Sacrum with small stage 3 PI, Santyl on order. Surrounding skin barely blanchable red. Patient is incontinent of urine, condom catheter fell off, nurse to
replace after skin care given and linens changed.
Appetite: NPO.
Pressure redistribution devices in place: air mattress, keep on air mattress when transferred.
Plan: Smear of Santyl to sacral ulcer followed by silicone foam daily. Foam adhesives to heels and L ankle, called SPD for Tru[employer]ue lite offloading heel boots. Asked nurse to apply when received. Air chair cushion brought in for chair.
Will confirm orders with hospitalist and update nurse.
Updated care plan and will follow as needed.
Note to case management of equipment requested for discharge: nurse to change dressings.
Recommend follow up at wound care center upon discharge.
--- NOTE | 2024-06-27 15:01 | HOSPNOTE ---
Met with family to discuss hospice and the philosophy. The plan would be patient would go back to [place] with [facility]. The family would like to take this evening to talk with the other family members and will let me know an answer tomorrow. Will
continue to update.
--- NOTE | 2024-06-27 22:27 | PTCARENOTE ---
assumed care of patient, pt is AAOx2/3- able to make needs known. pt is strict NPO, oral care done. pt q2t- condom cath intact. foam on sacrum intact. IV fluids infusing without issues. bed alarm on. care ongoing.
[2024-06-27] MEDS: ROCEPHIN 1000 MG IV (23:26)
[2024-06-27] MEDS: STERILE WATER FOR INJECTION 10 ML IV (23:26)
[2024-06-28] VITALS (12 sets, daily range): BP systolic 116–151; BP diastolic 48–95
[2024-06-28] MEDS: NSS 500 IV (02:40)
--- NOTE | 2024-06-28 03:57 | DOWNTIME ---
There was a [email or web address]almer Downtime on 06/28/2024 from 0100 to 06/28/2024 at 0355. Downtime documentation of patient's care, including medication administrations, has been reconciled in the electronic record per guidelines. Refer to the
patient's paper chart under the miscellaneous tab to see printed paper medication records and downtime forms.
[2024-06-28 05:17] LABS: Blood Urea Nitrogen 33 mg/dl (9-20); Calcium 8.7 mg/dl (8.4-10.2); Carbon Dioxide 18 mmol/L (22-30); Chloride 116 mmol/L (98-107); Estimated Creatinine Clearance 33 ml/min; Glucose 70 mg/dl (70-99); Magnesium 2.4 mg/dl (1.6-2.3); Potassium 4.1 mmol/L (3.5-5.1); Sodium 148 mmol/L (135-145); eGFR 48.34
[2024-06-28 05:26] LABS: % Basophils 0.5 % (0-2); % Immature Granulocytes 0.5 % (0-0.5); % Lymphocytes 7.1 % (20.5-51.1); % Neutrophils 84.9 % (42.2-75.2); Absolute Lymphocytes 0.6 10^3/uL (1.2-3.4); Absolute Monocytes 0.6 10^3/uL (0.1-0.6); Absolute Neutrophils 7.4 10^3/uL (1.4-6.5); Hematocrit 31.4 % (39.0-52.0); Hemoglobin 10.3 g/dL (13.0-18.0); Mean Corp Hgb Conc. 32.8 g/dL (33.0-37.0); Mean Corpuscular Volume 94.6 fL (80.0-94.0); Mean Platelet Volume 9.8 fL (7.4-10.4); Nucleated Red Blood Cells % 0 % (-); Platelet Count 191 10^3/uL (130-400); Red Blood Cell Count 3.32 10^6/uL (4.70-6.10); Red Cell Dist. Width 15.1 % (11.5-14.5); White Blood Cell Count 8.7 10^3/uL (4.8-10.8)
[2024-06-28] MEDS: D5W 1000 IV ×2 (05:35→18:41)
--- NOTE | 2024-06-28 08:00 | PTCARENOTE ---
Pt asleep on walking rounds. Strict NPO can have ice chips . Mouth care done.
[2024-06-28] MEDS: HEPARIN 5000 UNITS SC ×3 (08:14→23:55)
[2024-06-28] MEDS: SANTYL OINTMENT 1 APPLIC TOPICAL (08:15)
--- NOTE | 2024-06-28 09:25 | W.PN.HOSP.TC ---
Addendum entered and electronically signed by Duc Carney DO 06/28/24 13:13:
Moderate protein calorie malnutrition
Addendum entered and electronically signed by Duc Carney DO 06/28/24 12:46:
Septic shock, present on admission -shock resolved.
All of the following wounds were present on admission:
Left lateral ankle DTI versus stage 1 pressure injury
Bilateral heel boggy stage 1 pressure injury
Sacral small stage 3 pressure injury
Continue local wound care.
Original Note:
Today's Communication/Plan
-
Await goals of care
Assessment / Plan
Assessment / Plan
Gen-awake, confused, NAD
HEENT-NC, AT, anicteric, clear oral mm
Neck-supple
CV-reg, no M, +S1/S2
Lungs-clear B/L
Abd-soft, NT, ND
Ext-no edema
Musculoskeletal-no cyanosis, clubbing
Skin-warm and dry
Neuro-grossly non-focal
Psych-calm, cooperative
Acute hypoxic respiratory insufficiency -due to aspiration pneumonia. Currently on 2 L nasal cannula oxygen. Chest x-ray shows right basilar opacification.
Sepsis due to right lower lobe aspiration pneumonia -continue antibiotics. Suspect etiology of pneumonia due to dysphagia induced aspiration. Leukocytosis improved. Afebrile this morning. Blood cultures not sent on admission.
Lactic acidosis due to sepsis, resolved.
Dysphagia -unknown acuity but suspect chronic and likely due to underlying cognitive impairment, dementia. Failed video swallowing study unfortunately. Patient and family not interested in PEG tube. Discussion had with family yesterday and
recommendation for hospice made. Family to come back with their decision today.
JACQUELIN on CKD 3A -suspect JACQUELIN due to volume depletion. Creatinine improving.
Hypernatremia -due to dehydration due to n.p.o. status, dysphagia. Getting hypotonic fluids currently.
Gout
Essential hypertension -hypotensive on arrival requiring low-dose Levophed. Blood pressure now improved, off vasopressors. Not on antihypertensives prior to admission. It is noted on prior hospitalization in November of this year that blood pressure
tends to run low and he was discharged on midodrine 3 times daily. Unclear if he was still on this medication prior to admission.
Rheumatoid arthritis -on Plaquenil.
Hypothyroidism -continue Synthroid.
Normal pressure hydrocephalus -with related dementia. It was recommended to family to follow-up with neurosurgery as an outpatient back in November of this year for opinion on shunting, but they have not done so so far. Discussed with family.
Chronic anemia -hemoglobin near baseline. Follow-up as outpatient.
History of severe C. difficile colitis -November 2023.
DNR
Dispo -await family decision regarding hospice.
Anticipated Discharge: Within 24 hours
Subjective/Interval History
-
Date of Service: June 28, 2024
Patient seen and examined. No complaints. Sleeping when I walked in but arousable and communicative.
Objective Data
-
Labs:
Laboratory Results
06/28/24
04:48
WBC 8.7
Hgb 10.3 L
Hct 31.4 L
Plt Count 191
Sodium 148 H
Potassium 4.1
Chloride 116 H
Carbon Dioxide 18 L
BUN 33 H
Creatinine 1.4 H
Glucose 70
Calcium 8.7
Vital Signs:
Vital Signs
Temp Pulse Resp BP Pulse Ox
97.8 F 64 16 124/57 98
06/28/24 07:20 06/28/24 06:00 06/28/24 06:00 06/28/24 06:00 06/28/24 06:00
I&O
06/27/24 06/28/24 06/29/24
06:59 06:59 06:59
Intake Total 225 / 225
Output Total 1200 / 1200
Balance 225 / 225 -1200 / -1200
Review of Systems
-
History Source: Patient
All other systems: Reviewed and negative
--- NOTE | 2024-06-28 10:28 | HOSPNOTE ---
Spoke with family about follow up conversation about hospice yesterday. The family would like to talk today and they know that [facility] will accept patient back without hospice and the family can choose a DNH at the facility and then have the choice
to send patient back to the hospital and then can do hospice at a later date. Will await a final decision from family. Will continue to follow.
--- NOTE | 2024-06-28 11:41 | PN.CDI ---
CDI
- -
CDI:
Physician Documentation Request
Admit Date: 06/27/24 02:57
Dear Doctor Angelika,
Patient admitted with sepsis.
06/27 N note, ' Patient admitted with: L lateral ankle...Appears to be an evolving DTI vs Stage 1 PI. Heels are boggy stage 1 PI.... Sacrum with small stage 3 PI
Physician documentation of the type and location of wounds is required for compliant documentation. Based on the above clinical findings and your assessment, please provide the following in your progress note:
Type (etiology) of ulcer/wound:
- Pressure (decubitus) ulcer
- Other
- Unable to determine
For a pressure ulcer, please also include the stage* of the ulcer:
- Stage 1 - Skin intact, non-blanchable redness
- Stage 2 - Partial thickness loss of dermis, includes intact or open blister
- Stage 3 - Full thickness tissue not including bone, tendon or muscle
- Stage 4 - Full thickness tissue loss, including exposed bone, tendon or muscle
- Unstageable - Full thickness loss in which the base of the ulcer is covered by slough (yellow, ingram, edward, green or brown) and/or eschar (ingram, brown or black) in the wound bed.
- Unable to determine
Use of terms such as suspected, likely, concern for, or probable (associated with a specific diagnosis that is being evaluated, monitored, or treated as if it exists) are acceptable and can be coded in the inpatient setting, when documented at the
time of discharge.
Thank you,
Rhonda ANTUNEZN,RN,CCDS
CDI Specialist
Available via [place] text
Please use your independent medical judgment in providing your response.
*Source: National Pressure Ulcer Advisory Panel (NPUAP)
--- NOTE | 2024-06-28 11:54 | PN.CDI ---
CDI
- -
CDI:
Physician Documentation Request
Admit Date: 06/27/24 02:57
Dear Doctor Angelika,
Patient admitted with sepsis.
06/28 PN,'....hypotensive on arrival requiring low-dose Levophed.'
See BP's and MAP's below:
Selected Entries
06/27/24
01:02 06/27/24
01:45 06/27/24
02:00
Blood pressure 82/42 97/40 97/47
MAP (cuff-Dana Monitor) 56 58 61
06/27/24
02:15 06/27/24
02:45 06/27/24
04:00
Blood pressure 92/45 86/49 97/43
MAP (cuff-Dana Monitor) 60 60 57
06/27/24
06:00 06/27/24
06:30
Blood pressure 93/38 96/39
MAP (cuff-Dana Monitor) 55 57
Please clarify which of the following is the most likely etiology of the above symptoms and treatment rendered:
Septic shock
Hypotension only
Other
Use of terms such as suspected, likely, concern for, or probable (associated with a specific diagnosis that is being evaluated, monitored, or treated as if it exists) are acceptable and can be coded in the inpatient setting, when documented at the
time of discharge.
Thank you,
Rhonda DONIS,RN,CCDS
CDI Specialist
Available via [place] text
Please use your independent medical judgment in providing your response.
--- NOTE | 2024-06-28 12:23 | PN.CDI ---
CDI
- -
CDI:
Physician Documentation Request
Admit Date: 06/27/24 02:57
Dear Doctor Angelika,
Patient admitted with sepsis.
06/27 Nutrition note, 'Patient meets ASPEN criteria for moderate protein calorie malnutrition due to unintentional weight loss of more than 10% BW in 6 months and less than 75% of nutrition needs met over the past month.'
Please provide in your note the diagnosis associated with the above findings and your assessment:
Moderate protein calorie malnutrition
Other
[place] Criteria ([facility] Hospitalist 2017)
2 or more criteria must be present for either
non severe or severe malnutrition
Note that the criteria differs related to the
presence of an acute or chronic illness
Acute Illness Chronic Illness
Energy Intake Non Severe: <75% for >7 days Non Severe: <75% for >1 month
Severe: <50% for >5 days Severe: <75% for >1 month
Weight Loss Non Severe: 1-2% over 1 week Non Severe: 5% over 1 month
5% over 1 month 7.5% over 3 months
7.5% over 3 months 10% over 6 months
1 year N/A 20% over 1 year
Severe: >2% over 1 week Severe: >5% over 1 month
>5% over 1 month >7.5% over 3 months
>7.5% over 3 months >10% over 6 months
1 year N/A >20% over 1 year
Body Fat Non Severe: Mild Decrease Non Severe: Mild Loss
Severe: Moderate Decrease Severe: Severe Loss
Muscle Mass Non Severe: Mild Decrease Non Severe: Mild Loss
Severe: Moderate Decrease Severe: Severe Loss
Fluid Accumulation Non Severe: Mild Accumulation Non Severe: Mild Accumulation
Severe: Moderate to severe Severe: Moderate to severe
accumulation accumulation
Reduced Manager E Learning Strength Non Severe: N/A Non Severe: N/A
Severe: Measurably reduced Severe: Measurably reduced
Use of terms such as suspected, likely, concern for, or probable (associated with a specific diagnosis that is being evaluated, monitored, or treated as if it exists) are acceptable and can be coded in the inpatient setting, when documented at the
time of discharge.
Thank you,
Rhonda DONIS,RN,CCDS
CDI Specialist
Available via [place] text
Please use your independent medical judgment in providing your response.
--- NOTE | 2024-06-28 16:11 | CM ---
Chart reviewed. D/c for tomorrow.
CM spoke w/ daughter re hospice plan. Daughter wasn't sure of hospice yet, she was considering returning to facility w/ no hospice but needs to discuss with siblings.
CM spoke w/ [facility]/ Hospice re plan. [facility] stated she confirmed w/ family that they would like to move forward w/ hospice.
[facility] requested for ambulance transport to be scheduled at 1 pm.
CM spoke w/ [facility] re plan and pt returning to facility w/ Hospice. Jeimy agreed to pt's return.
[facility] DNR, transport forms and IMM on chart
Nurse, window unit air conditioning mechanic and hospitalist made aware
[facility]
Report: [phone]

Hospice

Plan: tomorrow return to [facility] [address] w/ Hospice via ambulance transport 1300 pickup
[2024-06-28] MEDS: ROCEPHIN 1000 MG IV (23:55)
[2024-06-28] MEDS: STERILE WATER FOR INJECTION 10 ML IV (23:55)
[2024-06-28] MEDS: ZITHROMAX INFUSION 250 IV (23:56)
[2024-06-29 02:00] VITALS: BP 113/52
[2024-06-29 06:17] VITALS: BMI 19.3
[2024-06-29 07:13] VITALS: BP 138/61
[2024-06-29 08:00] VITALS: BP 114/66
--- NOTE | 2024-06-29 09:06 | W.PN.HOSP.TC ---
Addendum entered and electronically signed by Duc Carney DO 06/29/24 11:11:
[facility] called me back after discussing with other family members and they have decided to continue oral antibiotics on discharge despite high aspiration risk.
Original Note:
Today's Communication/Plan
-
Discharge
Assessment / Plan
Assessment / Plan
Gen-awake, confused, NAD
HEENT-NC, AT, anicteric, clear oral mm
Neck-supple
CV-reg, no M, +S1/S2
Lungs-clear B/L
Abd-soft, NT, ND
Ext-no edema
Musculoskeletal-no cyanosis, clubbing
Skin-warm and dry
Neuro-grossly non-focal
Psych-calm, cooperative
Acute hypoxic respiratory insufficiency -due to aspiration pneumonia. Currently on 2 L nasal cannula oxygen. Chest x-ray shows right basilar opacification.
Sepsis due to right lower lobe aspiration pneumonia -continue antibiotics. Suspect etiology of pneumonia due to dysphagia induced aspiration. Leukocytosis improved. Afebrile this morning. Blood cultures not sent on admission.
Lactic acidosis due to sepsis, resolved.
Dysphagia -unknown acuity but suspect chronic and likely due to underlying cognitive impairment, dementia. Failed video swallowing study unfortunately. Speech therapy mentions that he has severe pharyngeal dysphagia with silent aspiration of all
textures. Significant pharyngeal residue noted. Patient and family not interested in PEG tube. Plan for hospice, family in agreement.
JACQUELIN on CKD 3A -suspect JACQUELIN due to volume depletion. Creatinine improving.
Hypernatremia -due to dehydration due to n.p.o. status, dysphagia.
Gout
Essential hypertension -hypotensive on arrival requiring low-dose Levophed. Blood pressure now improved, off vasopressors. Not on antihypertensives prior to admission. It is noted on prior hospitalization in November of this year that blood pressure
tends to run low and he was discharged on midodrine 3 times daily. Unclear if he was still on this medication prior to admission.
Rheumatoid arthritis -on Plaquenil.
Hypothyroidism -continue Synthroid.
Normal pressure hydrocephalus -with related dementia. It was recommended to family to follow-up with neurosurgery as an outpatient back in November of this year for opinion on shunting, but they have not done so so far. Discussed with family.
Chronic anemia -hemoglobin near baseline. Follow-up as outpatient.
History of severe C. difficile colitis -November 2023.
DNR
Dispo -family has agreed to discharge back to [place] with plans to start hospice. Family requesting to can continue oral antibiotics on discharge. I spoke with daughter Gaby on the phone and explained that this would be quite risky given his
high risk for aspiration of any medications including antibiotics. I favor not continuing antibiotics on discharge given high aspiration risk and plan for hospice. Daughter to call me back after speaking with other family members.
35 minutes spent in discharge process.
Anticipated Discharge: Today
Subjective/Interval History
-
Date of Service: June 29, 2024
Patient seen and examined. No complaints.
Objective Data
-
Vital Signs:
Vital Signs
Temp Pulse Resp BP Pulse Ox
98.6 F 76 16 137/51 96
06/29/24 07:24 06/28/24 18:00 06/28/24 18:00 06/28/24 09:00 06/28/24 23:07
I&O
06/28/24 06/29/24 06/30/24
06:59 06:59 06:59
Intake Total 2024
Output Total 1200 / 1200 975 / 975
Balance -1200 / -1200 1050 / 1050
Review of Systems
-
History Source: Patient
All other systems: Reviewed and negative
[2024-06-29] MEDS: SANTYL OINTMENT 1 APPLIC TOPICAL (09:18)
[2024-06-29] MEDS: HEPARIN SC (09:18)
[2024-06-29 10:00] VITALS: BP 115/50
--- NOTE | 2024-06-29 11:14 | CM ---
Addendum entered by Amparo Silveira RN 06/29/24 12:05:
Met with patient and ; IMM completed.
Original Note:
Patient from [facility] with Dx Acute hypoxic respiratory insufficiency & sepsis due to aspiration pneumonia, dysphagia, JACQUELIN. O2 2L.
Spoke with [facility]; she is aware/agrees with d/c today to [facility] with Hospice. The ph for report [phone], fax [phone].
Spoke with patient's daughter RICHI Griffin; she agrees with d/c today back to [facility] with Hospice.
Ambulance transport arranged today for 13:00.
[facility] DNR form signed on chart.
Plan [facility] today with Hospice.
--- NOTE | 2024-06-29 11:20 | W.DS.TRANS ---
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
-
Discharge Instructions:
Discharge Diagnosis/Procedures Severe dysphagia, aspiration pneumonia, sepsis,
acute kidney injury, hypernatremia
Diet Other diet
Additional Diets N.p.o., allow pleasure feedings on hospice
Activity With assistance
Driving Restrictions No driving
Bathing Restrictions None
Instructions:
Stand-Alone Forms:
Changes to Home Medications: Yes
Discharge Medications:
DC Medications w/original date entered in [employer]
bisacodyl 10 mg rectal suppository (Dulcolax (bisacodyl)) 10 mg CA DAILYPRN PRN if mom is ineffective after 24hrs 06/13/24
collagenase clostridium histo. 250 unit/gram topical ointment (Santyl) 1 applic topical DAILY 06/27/24
acetaminophen 650 mg rectal suppository 650 mg CA Q4HPRN PRN fever, mild pain #0 ea 06/29/24
amoxicillin 250 mg-potassium clavulanate 62.5 mg/5 mL oral suspension 10 ml PO TID #75 mL 06/29/24
Home Medication Changes
Stop previous outpatient medications.
Pending Results: No
[2024-06-29 12:00] VITALS: BP 113/56
--- NOTE | 2024-06-29 13:54 | PTCARENOTE ---
Assumed care of patient at beginning of this shift from previous RN. Patient for discharge to [facility] with plan for hospice. Report called and given to Lora; she requested condom cath be removed prior to discharge. She then called requesting a stop
date for the antibiotic. Patient had already been picked up by ambulance. [place] text sent to Dr Carney with fax number provided.
== END 2024-06-29 13:10 | disposition hospice, home (50) | DRG 871 ==
LOC: IMU 02:57
PROVIDERS: Nurse Practitioner Family; ADMITTING PHYSICIAN Internal Medicine; ATTENDING PHYSICIAN Hospitalist; EMERGENCY PHYSICIAN Emergency Medicine; FAMILY PHYSICIAN Family Medicine
DX: A41.9 Sepsis, unspecified organism (principal); J69.0 Pneumonitis due to inhalation of food and vomit; E87.20 Acidosis, unspecified; N17.9 Acute kidney failure, unspecified; E87.0 Hyperosmolality and hypernatremia; I12.9 Hypertensive chronic kidney disease with stage 1 through stage 4 chronic kidney disease, or unspecified chronic kidney disease; N18.31 Chronic kidney disease, stage 3a; M06.9 Rheumatoid arthritis, unspecified; E03.9 Hypothyroidism, unspecified; Z66 Do not resuscitate
CPT/HCPCS: 36415; 71046; 74230; 80048; 80053; 83605; 83735; 85025; 85027; 87070; 87449; 92610; 92611; 93005; 96365; 96375; 99285